=== PATIENT | male | born 1940 | race Caucasian/White ===

== ENCOUNTER 2021-02-03 09:26 | Emergency (ER) | payer MEDICARE, SELFPAY ==
[2021-02-03 09:27] VITALS: BP 130/71; PULSE 60; RESP 20; TEMP 36.7; O2SAT 95; BMI 24.8
--- NOTE | 2021-02-03 09:30 | HMH.EDGENADL ---
ED Disposition Clinical Impression: Back pain due to injury Disposition: Home, Self-Care Condition on Discharge: Good Additional Instructions: Use topical lidocaine patches daily. Use as prescribed. Take Flexeril at night prior to sleep to alleviate muscle spasms. Do not operate heavy machinery or drink alcohol taking muscle relaxer. Immediately report back to our emergency department if any change in quality/character pain, decreased ability to ambulate, decreased range of motion of back, fever/chills, urinary changes, bowel changes, perianal anesthesia, or other new concerning symptoms. Otherwise please follow-up with your primary care doctor within several days for a recheck. Prescriptions: Cyclobenzaprine HCl [Cyclobenzaprine 5mg Tab*] 5 mg PO BIDP PRN 5 Days #10 tab PRN Reason: Muscle Spasm Transmission Status: Pending to [id number] Lidocaine [Lidoderm 5% transdermal patch] 1 each TP Q24H 10 Days #10 adh..patch Transmission Status: Pending to [id number] Referrals: Pablo Sands MD [Primary Care Provider] - - Critical Care Critical Care Time: No Attestation: On , the high probability of a clinically significant, sudden or life threatening deterioration of the following system(s) required my full and direct attention, intervention and personal management. The time I documented below is in addition to time spent performing reported procedures but includes the following listed in this critical care notation. Medical Decision Making - Medical Records Medical records reviewed: Yes: I reviewed the patient's medical records. - Jerry Inquiry Pt receiving controlled substance: No Vital Signs: 02/03/21 09:27 Temperature 98.0 F Temperature Source Oral Pulse Rate [Left Radial] 60 Respiratory Rate 20 Blood Pressure [Right Arm] 130/71 Blood Pressure Mean [Right Arm] 90 Blood Pressure Source [Right Arm] Automatic Cuff Blood Pressure Position [Right Arm] Sitting 02 Sat by Pulse Oximetry 95 Oxygen Delivery Method Room Air Orders (Tests/Meds): ED MEDICATIONS Discontinued Medications Generic Name Dose Route Start Last Admin Trade Name Freq PRN Reason Stop Dose Admin Cyclobenzaprine HCl 5 mg 02/03/21 09:56 02/03/21 09:59 Cyclobenzaprine 10mg Tablet PO 02/03/21 09:57 5 mg ONCE ONE Administration Lidocaine 1 each 02/03/21 10:00 02/03/21 10:00 Lidocaine 5% Transdermal Patch TP 02/03/21 10:01 1 each ONCE ONE Administration Medical Decision Narrative: Patient is a 80-year-old presenting with right lower back pain. The pain is acute, sudden onset. No red flag symptoms of back pain including steroid use, recent weight loss, morning/night pain, neuro deficits, weakness. He does appear to be suffering from acute, nonradicular back pain after contorting his back in a funny way yesterday morning. No trauma to his back. Low suspicion for fracture, tumor, or infection. At this time, I do not believe there is indication for imaging. Patient agrees. Differential diagnosis does include herniated disc versus muscle strain versus muscle spasm. Patient given Flexeril and a lidocaine patch here in the emergency department due to suspected herniated disc with muscular spasm. Patient with improved pain after application of lidocaine patch and p.o. Flexeril. He now is ambulatory with only mild difficulty which is improved from his initial presentation. Again, on reexamination no midline back pain, neuro deficits, or other red flag symptoms. I do believe he is safe to discharge on short course of muscle relaxer to be taken at night prior to sleep as well as topical lidocaine patches. He would not operate heavy machinery or drink alcohol while taking Flexeril. He agrees. He will follow up with his primary care doctor for recheck within 1 to 2 days to ensure improved symptoms. He report back immediately to the emergency department if worsening pain, change in quality/character
[2021-02-03 10:00] VITALS: BP 129/73; PULSE 56; O2SAT 97
[2021-02-03 10:30] VITALS: BP 116/70; PULSE 52; O2SAT 95
[2021-02-03 10:49] VITALS: BP 116/70; PULSE 51; RESP 18; TEMP 36.7; O2SAT 96
== END 2021-02-03 10:50 | disposition home or self-care (01) ==
PROVIDERS: Emergency Provider Emergency Medicine; PCP Internal Medicine Adolescent Medicine
DX: M54.5 Low back pain (principal); I48.91 Unspecified atrial fibrillation; I10 Essential (primary) hypertension; Z79.899 Other long term (current) drug therapy
CPT/HCPCS: 99281

== ENCOUNTER → 2021-08-12 15:16 | Outpatient (CLI) | payer MEDICARE, SELFPAY ==
[2021-08-12 15:52] LABS: Basophils # 0.1 K/mm3 (0-0.2); Basophils % 1.1 % (0.1-2.0); Eosinophils # 0.2 K/mm3 (0.0-0.4); Eosinophils % 2.5 % (0.1-12.0); Hematocrit 47.5 % (42.0-52.0); Hemoglobin 15.2 g/dL (14.1-18.0); Lymphocytes # 1.3 K/mm3 (0.7-4.5); Lymphocytes % 18.5 % (10-50); Mean Corpuscular Hemoglobin 30.6 pg (27.0-31.2); Mean Corpuscular Volume 95.7 fl (80-94); Mean Platelet Volume 10.6 fl (7.4-10.4); Monocytes # 0.5 K/mm3 (0.1-1.0); Monocytes % 7.3 % (1.7-9.3); Neutrophils # 4.8 K/mm3 (1.8-7.8); Neutrophils % 70.7 % (37.0-80.0); Platelet Count 314 K/mm3 (142-424); Red Blood Count 4.96 M/mm3 (4.60-6.20); Red Cell Distribution Width 13.6 % (11.5-17.5); White Blood Count 6.8 K/mm3 (4.8-10.8)
[2021-08-12 16:41] LABS: Direct LDL Cholesterol 75.32 mg/dL (100-129)
[2021-08-12 21:52] LABS: Alanine Aminotransferase 21 U/L (12-78); Albumin/Globulin Ratio 1.5 (1.1-1.8); Alkaline Phosphatase 53 U/L (38-126); Anion Gap 11.5 mEq/L (5-15); Aspartate Amino Transferase 38 U/L (17-59); Bilirubin,Total 2.3 mg/dl (0.2-1.3); Blood Urea Nitrogen 15 mg/dl (9-20); Calcium 9.2 mg/dl (8.4-10.2); Carbon Dioxide 29 mmol/L (22.0-30.0); Chloride 104 mmol/L (98-107); Chol/HDL Ratio 2.9 (1-3.5); Cholesterol 149 mg/dl (140-200); Estimated Glomerular Filt Rate 93 ml/min (>60); GFR (African American) 113 ML/MIN (>60); Globulin 2.6 g/dL (1.3-3.2); Glucose 93 mg/dl (74-100); HDL Cholesterol 51 mg/dl (40-60); Potassium 5.5 mmoL/L (3.5-5.1); Sodium 139 mmol/L (136-145); Total Protein,Serum 6.6 g/dl (6.3-8.2); Triglycerides 84 mg/dl (30-150); VLDL Cholesterol 17 mg/dL (0-40)
== END ==
PROVIDERS: Visit Provider Internal Medicine Adolescent Medicine
DX: I10 Essential (primary) hypertension (principal); E80.6 Other disorders of bilirubin metabolism
CPT/HCPCS: 80053; 80061; 85025

== ENCOUNTER 2021-09-24 08:16 | Emergency (ER) | payer MEDICARE, SELFPAY ==
--- NOTE | 2021-09-24 08:09 | ECG_ITS ---
APPROVED REPORT Exam: Resting ECG HR:59 bpm ECG Measurements Heart Rate 59 AXES AL 194 P 61 QRSd 96 QRS 9 QT 424 T 63 QTc 419 Conclusion Sinus bradycardia Possible Anterior infarct, age undetermined Abnormal ECG Electronically signed by : Rodney Hodge MD 09/27/2021 08:49:37
[2021-09-24 08:18] VITALS: BP 159/90; PULSE 58; RESP 18; TEMP 36.5; O2SAT 99; BMI 23.6
--- NOTE | 2021-09-24 08:20 | XR_ITS ---
PROCEDURE: XR CHEST PORTABLE CLINICAL HISTORY: Chest Pain COMPARISON: CR CXR1 CHEST-PORTABLE from 10/22/2012 CR CXR1 CHEST-PORTABLE from 03/08/2013 CR CXR CHEST(2 VIEWS-NOT PORTABLE) from 01/01/2017 FINDINGS: The cardiomediastinal silhouette and pulmonary vascularity are within normal limits. Mild tortuosity/ectasia of the thoracic aorta. Lungs are clear. No acute bony abnormalities. IMPRESSION: No change with no acute finding Dictated by: Jameson Young MD 09/24/2021 09:02 Jameson Young MD in [facility] 09/24/2021 09:02
--- NOTE | 2021-09-24 08:26 | PC.NURSE ---
Called marilyn in RAD for chest xray
[2021-09-24 08:30] VITALS: BP 146/80; PULSE 58; RESP 16; O2SAT 98
[2021-09-24 08:32] LABS: Basophils % 0.6 % (0.1-2.0); Eosinophils # 0.2 K/mm3 (0.0-0.4); Eosinophils % 3.5 % (0.1-12.0); Hematocrit 41.6 % (42.0-52.0); Lymphocytes % 18.7 % (10-50); Mean Corpuscular HGB Conc 33.8 g/dL (31.8-35.4); Mean Corpuscular Hemoglobin 30.5 pg (27.0-31.2); Mean Corpuscular Volume 90.3 fl (80-94); Mean Platelet Volume 8.8 fl (7.4-10.4); Monocytes # 0.3 K/mm3 (0.1-1.0); Monocytes % 5.2 % (1.7-9.3); Neutrophils % 71.9 % (37.0-80.0); Platelet Count 254 K/mm3 (142-424); Red Cell Distribution Width 13.7 % (11.5-17.5); White Blood Count 5.6 K/mm3 (4.8-10.8)
--- NOTE | 2021-09-24 08:36 | HMH.EDCP ---
ED Disposition Clinical Impression: Chest pain Disposition: Home, Self-Care Condition on Discharge: Fair Referrals: Pablo Sands MD [Primary Care Provider] - - Critical Care Critical Care Time: No Attestation: On 09/24/21, the high probability of a clinically significant, sudden or life threatening deterioration of the following system(s) required my full and direct attention, intervention and personal management. The time I documented below is in addition to time spent performing reported procedures but includes the following listed in this critical care notation. Medical Decision Making - Medical Records Medical records reviewed: Yes: I reviewed the patient's medical records. - Jerry Inquiry Pt receiving controlled substance: No Jerry was queried for this patient: No Vital Signs: 09/24/21 08:18 09/24/21 08:30 Temperature 97.7 F Temperature Source Oral Pulse Rate 58 L Pulse Rate [Right] 58 L Respiratory Rate 18 16 Blood Pressure 146/80 H Blood Pressure [Right Arm] 159/90 H Blood Pressure Mean 102 Blood Pressure Mean [Right Arm] 113 Blood Pressure Source [Right Arm] Manual Cuff/ Doppler Blood Pressure Position [Right Arm] Supine 02 Sat by Pulse Oximetry 99 98 Oxygen Delivery Method Room Air - Lab Data Lab Results 09/24/21 08:00: WBC 5.6, RBC 4.60, Hgb 14.0 L, Hct 41.6 L, MCV 90.3, MCH 30.5, MCHC 33.8, RDW 13.7, Plt Count 254, MPV 8.8, Neut % (Auto) 71.9, Lymph % (Auto) 18.7, [place] % (Auto) 5.2, Eos % (Auto) 3.5, Baso % (Auto) 0.6, Neut # (Auto) 4.0, Lymph # (Auto) 1.0, [place] # (Auto) 0.3, Eos # (Auto) 0.2, Baso # (Auto) 0.0 09/24/21 08:00: PT 12.0, INR 1.07, APTT 26.2 09/24/21 08:00: D-Dimer 0.51 H 09/24/21 08:00: Sodium 137, Potassium 3.9, Chloride 103, Carbon Dioxide 34 H, Anion Gap 3.9 L, BUN 14, Creatinine 0.80, Estimated Creat Clear 63, Estimated GFR 93, Est GFR ( Amer) 113, Glucose 106 H, Calcium 9.0, Total Bilirubin 1.6 H, AST 38, ALT 24, Alkaline Phosphatase 60, Troponin I < 0.01, Total Protein 6.5, Albumin 4.0, Globulin 2.5, Albumin/Globulin Ratio 1.6 Result diagrams: 09/24/21 08:00 09/24/21 08:00 Orders (Tests/Meds): ED MEDICATIONS Generic Name Dose Route Start Last Admin Trade Name Freq PRN Reason Stop Dose Admin Ibuprofen 400 mg 09/24/21 10:39 Ibuprofen 400 Mg Tablet PO 09/24/21 10:40 ONCE ONE Discontinued Medications Generic Name Dose Route Start Last Admin Trade Name Freq PRN Reason Stop Dose Admin Iopamidol 100 ml 09/24/21 09:41 09/24/21 09:42 Iopamidol-370 (76%);100ml Bottle IV 09/24/21 09:42 100 ml ONCE ONE Administration Sodium Chloride 10 ml 09/24/21 09:41 09/24/21 09:42 Sodium Chloride 0.9% 10ml Vial IV 09/24/21 09:42 10 ml ONCE ONE Administration ORDERS Category Date Time Status Troponin I Q3H Lab 09/24/21 11:30 Ordered Troponin I Q3H Lab 09/24/21 14:30 Ordered Medical Decision Narrative: Patient is a 81-year-old male with past medical history of A. fib on Eliquis, hypertension presenting to the ED with chest tightness. Patient is awake, alert, not in acute distress. Patient states that his chest pain has resolved with nitro patient states that now he is only having a mild headache. Differential includes but is not limited to unstable angina well, low concern for ACS, PE, pneumonia, pneumothorax. Given this a CBC, CMP, troponin, EKG, D-dimer is performed. Patient's lab work is unremarkable, initial troponin is less than 0.01. D-dimer is elevated, CT PE is performed which is negative for any embolism or concerns for dissection. Patient is given ibuprofen and coffee for his headache. At this point patient is stable for discharge to follow-up with his primary care physician and merchandising stock associate. Patient is given strict return precautions and follow-up instructions. Chest Pain HPI - General Chief Complaint: Chest Pain Stated Complaint: Chest Pain Time Seen by Provider: 09/24/21 08:37 Mode of A
[2021-09-24 08:40] LABS: Activated Partial Thrombo Time 26.2 seconds (22.8-30.6); INR 1.07 (0.9-1.1)
[2021-09-24 08:45] LABS: Alanine Aminotransferase 24 U/L (12-78); Albumin/Globulin Ratio 1.6 (1.1-1.8); Alkaline Phosphatase 60 U/L (38-126); Anion Gap 3.9 mEq/L (5-15); Aspartate Amino Transferase 38 U/L (17-59); Bilirubin,Total 1.6 mg/dl (0.2-1.3); Blood Urea Nitrogen 14 mg/dl (9-20); Carbon Dioxide 34 mmol/L (22.0-30.0); Chloride 103 mmol/L (98-107); Creatinine Clearance Estimated 63 mL/min (50-200); Estimated Glomerular Filt Rate 93 ml/min (>60); GFR (African American) 113 ML/MIN (>60); Globulin 2.5 g/dL (1.3-3.2); Glucose 106 mg/dl (74-100); Potassium 3.9 mmoL/L (3.5-5.1); Sodium 137 mmol/L (136-145); Total Protein,Serum 6.5 g/dl (6.3-8.2)
--- NOTE | 2021-09-24 08:54 | PC.NURSE ---
Pt is on blood thinner eliquis
[2021-09-24 08:56] LABS: Troponin I < 0.01 ng/ml (0.00-0.034)
[2021-09-24 09:00] VITALS: BP 149/87; PULSE 47; RESP 18; O2SAT 97
[2021-09-24 09:04] LABS: D-Dimer 0.51 ug/mL (0.0-0.5)
--- NOTE | 2021-09-24 09:05 | PC.NURSE ---
Checked on Pt he is resting confortably in bed
--- NOTE | 2021-09-24 09:14 | CT_ITS ---
PROCEDURE: CT ANGIO CHEST CLINCIAL INDICATION: Chest pain, confusion, elevated D dimer COMPARISON: No exams were available for comparison TECHNIQUE: IV Contrast: 70ML Isovue 370 Axial images obtained with sagittal and coronal reformats. All CT scans at the facility use one or more dose reduction, viz: automated exposure control, ma/kV adjustment per patient size (including targeted exams where dose is matched to indication, i.e. head), or iterative reconstruction technique. FINDINGS: HEART AND MEDIASTINAL STRUCTURES: No evidence of aortic aneurysm or dissection. There is mild ectasia and moderate tortuosity of the descending thoracic aorta. No evidence of central pulmonary embolus. No mediastinal or hilar mass or adenopathy. Coronary artery calcifications are present. LUNGS AND PLEURAL SPACES: There are some scattered areas of scarring. Mild atelectatic change in the left lower lobe medially adjacent to the tortuous aorta. BONY STRUCTURES: No acute bony abnormalities apparent. UPPER ABDOMEN: No evidence abdominal aortic aneurysm or dissection to the level of the iliac crest. There is colonic diverticulosis with a mild amount of retained colonic feces. 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 This aneurysm measures approximately 4 mm. Mild nonspecific thickening of the GE junction and stomach possibly due to nondistention and could be confirmed with upper endoscopy or upper GI. Left adrenal gland is slightly prominent and may represent adenomatous involvement. ADDITIONAL FINDINGS: No other significant abnormalities. IMPRESSION: No acute finding. No evidence of aortic aneurysm or dissection. There is moderate tortuosity of the descending thoracic aorta. 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 Other nonacute findings as described above. Dictated by: Jameson Young MD 09/24/2021 10:23 Jameson Young MD in [place] 09/24/2021 10:23
--- NOTE | 2021-09-24 09:27 | PC.NURSE ---
Pt to rad
--- NOTE | 2021-09-24 09:39 | PC.NURSE ---
PT is back from [place], and is currently in the bathroom
[2021-09-24 09:48] VITALS: BP 152/92; PULSE 50; O2SAT 98
--- NOTE | 2021-09-24 10:16 | PC.NURSE ---
Took Pt to bathroom
[2021-09-24 11:00] VITALS: BP 153/97; PULSE 59; RESP 18; TEMP 36.8; O2SAT 99
== END 2021-09-24 11:00 | disposition home or self-care (01) ==
PROVIDERS: Emergency Provider Emergency Medicine; PCP Internal Medicine Adolescent Medicine
DX: R07.9 Chest pain, unspecified (principal); R42 Dizziness and giddiness; I48.0 Paroxysmal atrial fibrillation; I10 Essential (primary) hypertension; E78.5 Hyperlipidemia, unspecified; Z79.899 Other long term (current) drug therapy
CPT/HCPCS: 71045; 71275; 80053; 84484; 85025; 85378; 85610; 85730; 93005; 99283; Q9967

== ENCOUNTER → 2022-10-29 09:12 | Outpatient (CLI) | payer MEDICARE, SELFPAY ==
[2022-10-29 10:23] LABS: Hematocrit 45.4 % (42.0-52.0); Hemoglobin 14.6 g/dL (14.1-18.0); Mean Corpuscular Hemoglobin 30.2 pg (27.0-31.2); Mean Corpuscular Volume 94.4 fl (80-94); Platelet Count 339 K/mm3 (142-424); Red Blood Count 4.81 M/mm3 (4.60-6.20); Red Cell Distribution Width 13.9 % (11.5-17.5); White Blood Count 5.3 K/mm3 (4.8-10.8)
[2022-10-29 12:17] LABS: Chloride 103 mmol/L (98-107); Potassium 4.3 mmoL/L (3.5-5.1); Sodium 139 mmol/L (136-145)
[2022-10-29 12:20] LABS: Alanine Aminotransferase 27 U/L (12-78); Albumin/Globulin Ratio 1.7 (1.1-1.8); Alkaline Phosphatase 67 U/L (38-126); Anion Gap 10.3 mEq/L (5-15); Aspartate Amino Transferase 40 U/L (17-59); Bilirubin,Total 1.9 mg/dl (0.2-1.3); Blood Urea Nitrogen 14 mg/dl (9-20); Carbon Dioxide 30 mmol/L (22.0-30.0); Chol/HDL Ratio 2.7 (1-3.5); Cholesterol 164 mg/dl (140-200); Estimated Glomerular Filt Rate 93 ml/min (>60); GFR (African American) 113 ML/MIN (>60); Globulin 2.4 g/dL (1.3-3.2); Glucose 91 mg/dl (74-100); HDL Cholesterol 60 mg/dl (40-60); Total Protein,Serum 6.4 g/dl (6.3-8.2); Triglycerides 61 mg/dl (30-150); VLDL Cholesterol 12 mg/dL (0-40)
[2022-10-29 12:31] LABS: Direct LDL Cholesterol 70.99 mg/dL (100-129)
== END ==
PROVIDERS: PCP Internal Medicine Adolescent Medicine; Visit Provider Nurse Practitioner Family
DX: Z00.00 Encounter for general adult medical examination without abnormal findings (principal); I48.0 Paroxysmal atrial fibrillation; Z79.899 Other long term (current) drug therapy
CPT/HCPCS: 36415; 80053; 80061; 85014; 85018; 85048; 85049

== ENCOUNTER 2024-05-05 08:52 | Outpatient (CLI) | payer MEDICARE, SELFPAY ==
[2024-05-05 09:28] LABS: Basophils # 0.1 K/mm3 (0-0.2); Basophils % 1.4 % (0.1-2.0); Eosinophils # 0.3 K/mm3 (0.0-0.4); Eosinophils % 4.6 % (0.1-12.0); Hematocrit 39.3 % (42.0-52.0); Hemoglobin 15.1 g/dL (14.1-18.0); Lymphocytes # 1.2 K/mm3 (0.7-4.5); Lymphocytes % 19.6 % (10-50); Mean Corpuscular HGB Conc 38.3 g/dL (31.8-35.4); Mean Corpuscular Hemoglobin 35.1 pg (27.0-31.2); Mean Corpuscular Volume 91.8 fl (80-94); Monocytes # 0.5 K/mm3 (0.1-1.0); Monocytes % 7.9 % (1.7-9.3); Neutrophils # 4.2 K/mm3 (1.8-7.8); Neutrophils % 66.6 % (37.0-80.0); Platelet Count 220 K/mm3 (142-424); Red Blood Count 4.29 M/mm3 (4.60-6.20); Red Cell Distribution Width 13.7 % (11.5-17.5); White Blood Count 6.3 K/mm3 (4.8-10.8)
[2024-05-05 10:57] LABS: Chloride 106 mmol/L (98-107)
[2024-05-05 10:58] LABS: Potassium 4.2 mmoL/L (3.5-5.1); Sodium 140 mmol/L (136-145)
[2024-05-05 11:00] LABS: Alanine Aminotransferase 20 U/L (12-78); Anion Gap 12.2 mEq/L (5-15); Aspartate Amino Transferase 30 U/L (17-59); Blood Urea Nitrogen 17 mg/dl (9-20); Carbon Dioxide 26 mmol/L (22.0-30.0); Estimated Glomerular Filt Rate 81 ml/min (>60); GFR (African American) 98 ML/MIN (>60)
[2024-05-05 11:01] LABS: Albumin Level 3.9 g/dl (3.5-5.0); Albumin/Globulin Ratio 1.9 (1.1-1.8); Alkaline Phosphatase 61 U/L (38-126); Bilirubin,Total 1.9 mg/dl (0.2-1.3); Calcium 9.3 mg/dl (8.4-10.2); Cholesterol 158 mg/dl (140-200); Globulin 2.1 g/dL (1.3-3.2); Glucose 92 mg/dl (74-100); HDL Cholesterol 53 mg/dl (40-60); Triglycerides 74 mg/dl (30-150); VLDL Cholesterol 15 mg/dL (0-40)
== END 2024-05-05 23:59 | disposition home or self-care (01) ==
LOC: LAB 08:54
PROVIDERS: PCP Nurse Practitioner Family; Visit Provider Nurse Practitioner Family
DX: P59.29 Neonatal jaundice from other hepatocellular damage (principal); I10 Essential (primary) hypertension; I48.0 Paroxysmal atrial fibrillation
CPT/HCPCS: 36415; 80053; 80061; 85025

== ENCOUNTER 2024-12-22 18:37 | Emergency (ER) | payer MEDICARE, SELFPAY ==
[2024-12-22] VITALS (10 sets, daily range): BP systolic 122–143; BP diastolic 72–87; PULSE 62–86; RESP 11–22; TEMP 36.6–37.1; O2SAT 96–99; BMI 20.6
--- NOTE | 2024-12-22 18:35 | [facility].EDCP ---
Discharge Plan Disposition Patient Disposition: Home, Self-Care Condition: Good Prescriptions Prescriptions: No Action doxycycline hyclate 100 MG capsule 100 mg PO BID atorvastatin 20 MG tablet 20 mg PO HS flecainide 50 MG tablet 50 mg PO DAILY mupirocin 2 % ointment 1 applicatio topical BID metoprolol succinate 25 MG tablet extended release 24 hr 25 mg PO DAILY ibuprofen 600 MG tablet 600 mg PO TID Patient Comments: TAKE 1 TABLET BY MOUTH EVERY 12 HOURS NEEDED cephalexin 500 MG capsule 500 mg PO TID Qty: 30 0RF lidocaine 1 EACH adhesive patch,medicated 1 each TP Q24H 10 Days Qty: 10 0RF cyclobenzaprine 5 MG tablet 5 mg PO BIDP PRN (Reason: Muscle Spasm) 5 Days Qty: 10 0RF Rx Instructions: Do not operate heavy machinery or drink alcohol while taking this medicine Referrals Follow up/Referrals: Soha Garcia APRN [Primary Care Provider] - See instructions Activity Restrictions/Add. Instructions Additional Instructions/Restrictions: Recommend that you follow-up with your PCP next week however sooner if you have continuing new or worsening signs or symptoms return to ER. Also recommend that you follow-up with cardiology as you have nitroglycerin but I do not know if you have actual cardiovascular disease and it actually may be harmful to continue taking it. Clinical Impressions Clinical Impression: Chest pain Qualifiers: Chest pain type: unspecified Qualified Code(s): R07.9 - Chest pain, unspecified Anxiety disorder Qualifiers: Anxiety disorder type: unspecified anxiety disorder Qualified Code(s): F41.9 - Anxiety disorder, unspecified Print Language Print Language: Faroese Discharge ED Provider: Joe Álvarez HPI <JIMMIE Christensen - Last Filed: 12/22/24 21:19> General Chief Complaint: Chest Pain Stated Complaint: Chest Pain, Anxiety Time Seen by Provider: 12/22/24 18:44 History of Present Illness HPI narrative: Patient presents for evaluation of chest pain . Patient reports that he began having chest pain around 10 AM this morning. He states that he is taking 3 sublingual nitro that have not made it better. Interestingly the patient denies any cardiac history or any known cardiac disease any history of cardiac cath coronary artery bypass graft AR but cannot explain how he has a prescription for nitroglycerin. He currently denies chest pain fever chills mops his hematochezia melena nausea vomiting diarrhea but does report feeling anxious. But has no home medications for anxiety. Related Data Home Medications ?Medication ?Instructions ?Recorded ?Confirmed atorvastatin 20 mg tablet 20 mg PO HS lipids 08/27/19 12/22/24 doxycycline hyclate 100 mg capsule 100 mg PO BID Infection 08/27/19 12/22/24 flecainide 50 mg tablet 50 mg PO DAILY afib 08/27/19 12/22/24 ibuprofen 600 mg tablet 600 mg PO TID Infection 08/27/19 12/22/24 metoprolol succinate 25 mg 25 mg PO DAILY aortic valve 08/27/19 12/22/24 tablet,extended release 24 hr disorder/htn mupirocin 2 % topical ointment 1 applicatio topical BID cellulitis 08/27/19 12/22/24 Previous Rx's ?Medication ?Instructions ?Recorded cephalexin 500 mg capsule 500 mg PO TID #30 caps 08/27/19 cyclobenzaprine 5 mg tablet 5 mg PO BIDP PRN Muscle Spasm 5 02/03/21 days #10 tabs lidocaine 5 % topical patch 1 each TP Q24H Back ache/back pain 02/03/21 10 days ##10 Allergies Allergy/AdvReac Type Severity Reaction Status Date / Time No Known Allergies Allergy Verified 08/27/19 19:42 [facility] <JIMMIE Christensen - Last Filed: 12/22/24 21:19> [facility] Disclaimer: The information contained in this section may have been updated after the patient was seen, as this information can be updated by other users. Social History Smoking Status: Never smoker alcohol intake: never current occupational status: retired Travel in the last 8 weeks: None housing: house Have you lived/traveled outside [place] in past 30 days?: No Contact w/someone who lives/traveled outside US past 30 days?: No Exposure to someone with infectious disease in past 14 days?: No Do you have a fever (greater than 100.4 F or 38 C)?: No Have you tested positive for COVID-19: No Exposed to someone with COVID-19 in past 14 days?: No Do you have a sore throat?: No Do you have a cough?: No Do you have any weakness?: No Do you have any diarrhea?: No Are you experiencing any unusual bleeding?: No Do you have any muscle aches/pain?: No Do you have any abdominal pain?: No Are you experiencing loss of taste or smell?: No Other Medical History Have you received the Flu Vaccine for this season: Yes Have you received the Pneumonia Vaccine: No <JIMMIE Christensen - Last Filed: 12/22/24 21:19> ROS Obtained: Yes Systems reviewed as appropriate & no additional complaints except as documented Physical Exam <JIMMIE Christensen - Last Filed: 12/22/24 21:19> General General appearance: alert and in no apparent distress Respiratory Respiratory exam: Present normal lung sounds bilaterally Cardiovascular Cardiovascular exam: Present regular rate Neurological Exam Neurological exam: Present alert, oriented X3 and CN II-XII intact HEART Score <JIMMIE Christensen - Last Filed: 12/22/24 21:19> HEART Score HEART Score assessment performed?: Yes History (anamnesis): Slightly suspicious ECG: Non-specific disturbance Age: >65 years Risk factors: 1-2 risk factors Troponin: </= normal limit HEART Score: 4 <Joe Álvarez MD - Last Filed: 12/22/24 23:44> HEART Score HEART Score: 4 Critical Care <JIMMIE Christensen - Last Filed: 12/22/24 21:19> Critical Care Time Critical Care Time: No Medical Decision Making <JIMMIE Christensen - Last Filed: 12/22/24 21:19> Medical Records Medical records reviewed: Yes I reviewed the patient's medical records. Jerry Inquiry Pt receiving controlled substance: No Vital Signs Vital Signs: 12/22/24 18:55 12/22/24 19:00 12/22/24 19:15 Temperature 97.8 F Temperature Source Oral Pulse Rate 67 69 Pulse Rate [Left Radial] 69 Respiratory Rate 18 11 L Blood Pressure 139/85 Blood Pressure [Right Arm] 131/74 Blood Pressure Mean [Right Arm] 93 Blood Pressure Source [Right Arm] Automatic Cuff Blood Pressure Position Blood Pressure Position [Right Arm] Sitting 02 Sat by Pulse Oximetry 98 97 Oxygen Delivery Method Room Air Room Air 12/22/24 19:15 12/22/24 19:30 12/22/24 20:00 Temperature Temperature Source Pulse Rate 63 65 62 Pulse Rate [Left Radial] Respiratory Rate 15 22 19 Blood Pressure 131/76 122/72 Blood Pressure [Right Arm] Blood Pressure Mean [Right Arm] Blood Pressure Source [Right Arm] Blood Pressure Position Blood Pressure Position [Right Arm] 02 Sat by Pulse Oximetry 97 96 99 Oxygen Delivery Method Room Air 12/22/24 20:30 12/22/24 21:00 12/22/24 21:30 Temperature Temperature Source Pulse Rate 62 67 Pulse Rate [Left Radial] Respiratory Rate 22 16 16 Blood Pressure 128/74 143/83 H 138/84 Blood Pressure [Right Arm] Blood Pressure Mean [Right Arm] Blood Pressure Source [Right Arm] Blood Pressure Position Blood Pressure Position [Right Arm] 02 Sat by Pulse Oximetry 99 99 Oxygen Delivery Method Room Air 12/22/24 21:51 12/22/24 22:00 Temperature 98.7 F Temperature Source Oral Pulse Rate 86 Pulse Rate [Left Radial] Respiratory Rate 14 17 Blood Pressure 128/87 128/87 Blood Pressure [Right Arm] Blood Pressure Mean [Right Arm] Blood Pressure Source [Right Arm] Blood Pressure Position Sitting Blood Pressure Position [Right Arm] 02 Sat by Pulse Oximetry Oxygen Delivery Method Room Air Lab Data Lab results reviewed: Yes I reviewed the patient's lab results. Labs: Lab Results 12/22/24 18:48: SARS-CoV-2 (PCR) Not detected, Influenza A Untype (PCR) Not detected, Influenza Type B (PCR) Not detected 12/22/24 19:20: WBC 6.1, RBC 4.34 L, Hgb 13.0 L, Hct 39.1 L, MCV 90.1, MCH 30.0, MCHC 33.2, RDW 13.0, Plt Count 312, MPV 9.7, Neut % (Auto) 66.7, Lymph % (Auto) 19.5, [place] % (Auto) 9.9 H, Eos % (Auto) 2.3, Baso % (Auto) 1.3, Neut # (Auto) 4.0, Lymph # (Auto) 1.2, [place] # (Auto) 0.6, Eos # (Auto) 0.1, Baso # (Auto) 0.1, PT 11.8, INR 1.06, D-Dimer 0.41, Sodium 137, Potassium 4.1, Chloride 104, Carbon Dioxide 29, Anion Gap 8.1, BUN 19, Creatinine 0.80, Estimated Creat Clear 54, Estimated GFR 93, Est GFR ( Amer) 112, Glucose 91, Calcium 8.6, Magnesium 1.7, Total Bilirubin 1.4 H, AST 34, ALT 25, Alkaline Phosphatase 71, Troponin I < 0.01, NT-Pro-B Natriuret Pep 109, Total Protein 5.7 L, Albumin 3.9, Globulin 1.8, Albumin/Globulin Ratio 2.2 H, Procalcitonin 0.048, TSH 3.15, Free T4 Index 2.4 L, Thyroxine (T4) 7.3, T3 Uptake 33, HCV Ab NASRIN w/Rflx PCR Qn Negative, HIV Ag/Ab Combo Qual Negative 12/22/24 20:59: Urine Color Yellow, Urine Appearance Clear, Urine pH 7.0, Ur Specific [place] 1.020, Urine Protein Negative, Urine Glucose (UA) Negative, Urine Ketones Trace, Urine Blood Negative, Urine Nitrate Negative, Urine Bilirubin Negative, Urine Urobilinogen 1.0, Ur Leukocyte Esterase Negative, Urine RBC Occasional, Urine WBC Occasional, Ur Squamous Epith Cells Occasional, Urine Mucus 2+ 12/22/24 19:20 12/22/24 19:20 Response Orders (Tests/Meds): ED MEDICATIONS Discontinued Medications Generic Name Dose Route Start Last Admin Trade Name Freq PRN Reason Stop Dose Admin Acetaminophen 1,000 mg 12/22/24 18:39 12/22/24 18:53 Acetaminophen 500mg Tab PO 12/22/24 18:40 1,000 mg ONCE ONE Administration Ketorolac Tromethamine 15 mg 12/22/24 18:39 12/22/24 18:53 Ketorolac 30mg/Ml Vial IV 12/22/24 18:40 15 mg ONCE ONE Administration Lorazepam 0.5 mg 12/22/24 20:50 12/22/24 21:02 Lorazepam 2mg/Ml Vial IV 12/22/24 20:51 0.5 mg ONCE ONE Administration Ondansetron HCl 4 mg 12/22/24 18:39 12/22/24 18:53 Ondansetron 4mg/2ml Vial IV 12/22/24 18:40 4 mg ONCE ONE Administration Sodium Chloride 10 ml 12/22/24 20:50 Sodium Chloride 0.9% 10ml Vial IV 01/21/25 20:49 NEEDED PRN to Dilute Lorazepam inj ORDERS Category Date Time Status XR chest portable Stat Exams 12/22/24 19:08 Completed BNP [NT Pro Brain Natriuretic Pep.] Stat Lab 12/22/24 19:20 Completed CBC w/Auto Diff [Complete Blood Count Auto Diff] Stat Lab 12/22/24 19:20 Completed CMP [Comprehensive Metabolic Panel] Stat Lab 12/22/24 19:20 Completed D-Dimer Stat Lab 12/22/24 19:20 Completed HIV Combo Stat Lab 12/22/24 19:20 Completed Hepatitis C Ab Qual. W/ RFX Stat Lab 12/22/24 19:20 Completed INR [Prothrombin Time INR] Stat Lab 12/22/24 19:20 Completed Magnesium Stat Lab 12/22/24 19:20 Completed Procalcitonin Stat Lab 12/22/24 19:20 Completed Rapid PCR Covid and Flu A/B Stat Lab 12/22/24 18:48 Completed Thyroid Panel Stat Lab 12/22/24 19:20 Completed Trop I [Troponin I] Stat Lab 12/22/24 19:20 Completed UA [Urinalysis and Microscopic] Stat Lab 12/22/24 20:59 Completed MDM Narrative Medical Decision Narrative: In summary patient is a 84-year-old male who presents to the emergency department for evaluation of chest pain. Patient is hemodynamically stable upon arrival, afebrile. Physical exam is remarkable for normal breath sounds normal heart sounds no increased work of breathing no adventitious sounds abdomen soft nontender no rebound or guarding or rigidity. Bowel sounds normal active. Hart Coma Score 15. Patient awake alert and oriented person place circumstance.. Differential diagnosis includes ACS versus pneumonia versus upper or lower respiratory tract infection versus anxiety etc. Initial workup will be conducted with hematologic labs twelve-lead EKG plain from chest x-ray. Initial interventions include Toradol Tylenol Zofran for now. Initial workup reviewed by me shows that his hematologic labs are nonactionable his troponin is undetectable my informal interpretation of his plain film chest x-ray shows no acute processes his twelve-lead EKG shows no evidence of ACS COVID and flu are negative urinalysis is bland. Upon repeat evaluation patient has had no recurrent of his chest pain. Given this is more than 8 hours have passed since patient began having chest pain a single troponin is adequate to rule out ACS given the other negatives. On repeat evaluation patient reports feeling completely better after Ativan. 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 <Joe Álvarez MD - Last Filed: 12/22/24 23:44> Vital Signs Vital Signs: 12/22/24 18:55 12/22/24 19:00 12/22/24 19:15 Temperature 97.8 F Temperature Source Oral Pulse Rate 67 69 Pulse Rate [Left Radial] 69 Respiratory Rate 18 11 L Blood Pressure 139/85 Blood Pressure [Right Arm] 131/74 Blood Pressure Mean [Right Arm] 93 Blood Pressure Source [Right Arm] Automatic Cuff Blood Pressure Position Blood Pressure Position [Right Arm] Sitting 02 Sat by Pulse Oximetry 98 97 Oxygen Delivery Method Room Air Room Air 12/22/24 19:15 12/22/24 19:30 12/22/24 20:00 Temperature Temperature Source Pulse Rate 63 65 62 Pulse Rate [Left Radial] Respiratory Rate 15 22 19 Blood Pressure 131/76 122/72 Blood Pressure [Right Arm] Blood Pressure Mean [Right Arm] Blood Pressure Source [Right Arm] Blood Pressure Position Blood Pressure Position [Right Arm] 02 Sat by Pulse Oximetry 97 96 99 Oxygen Delivery Method Room Air 12/22/24 20:30 12/22/24 21:00 12/22/24 21:30 Temperature Temperature Source Pulse Rate 62 67 Pulse Rate [Left Radial] Respiratory Rate 22 16 16 Blood Pressure 128/74 143/83 H 138/84 Blood Pressure [Right Arm] Blood Pressure Mean [Right Arm] Blood Pressure Source [Right Arm] Blood Pressure Position Blood Pressure Position [Right Arm] 02 Sat by Pulse Oximetry 99 99 Oxygen Delivery Method Room Air 12/22/24 21:51 12/22/24 22:00 Temperature 98.7 F Temperature Source Oral Pulse Rate 86 Pulse Rate [Left Radial] Respiratory Rate 14 17 Blood Pressure 128/87 128/87 Blood Pressure [Right Arm] Blood Pressure Mean [Right Arm] Blood Pressure Source [Right Arm] Blood Pressure Position Sitting Blood Pressure Position [Right Arm] 02 Sat by Pulse Oximetry Oxygen Delivery Method Room Air Lab Data Labs: Lab Results 12/22/24 18:48: SARS-CoV-2 (PCR) Not detected, Influenza A Untype (PCR) Not detected, Influenza Type B (PCR) Not detected 12/22/24 19:20: WBC 6.1, RBC 4.34 L, Hgb 13.0 L, Hct 39.1 L, MCV 90.1, MCH 30.0, MCHC 33.2, RDW 13.0, Plt Count 312, MPV 9.7, Neut % (Auto) 66.7, Lymph % (Auto) 19.5, [place] % (Auto) 9.9 H, Eos % (Auto) 2.3, Baso % (Auto) 1.3, Neut # (Auto) 4.0, Lymph # (Auto) 1.2, [place] # (Auto) 0.6, Eos # (Auto) 0.1, Baso # (Auto) 0.1, PT 11.8, INR 1.06, D-Dimer 0.41, Sodium 137, Potassium 4.1, Chloride 104, Carbon Dioxide 29, Anion Gap 8.1, BUN 19, Creatinine 0.80, Estimated Creat Clear 54, Estimated GFR 93, Est GFR ( Amer) 112, Glucose 91, Calcium 8.6, Magnesium 1.7, Total Bilirubin 1.4 H, AST 34, ALT 25, Alkaline Phosphatase 71, Troponin I < 0.01, NT-Pro-B Natriuret Pep 109, Total Protein 5.7 L, Albumin 3.9, Globulin 1.8, Albumin/Globulin Ratio 2.2 H, Procalcitonin 0.048, TSH 3.15, Free T4 Index 2.4 L, Thyroxine (T4) 7.3, T3 Uptake 33, HCV Ab NASRIN w/Rflx PCR Qn Negative, HIV Ag/Ab Combo Qual Negative 12/22/24 20:59: Urine Color Yellow, Urine Appearance Clear, Urine pH 7.0, Ur Specific [place] 1.020, Urine Protein Negative, Urine Glucose (UA) Negative, Urine Ketones Trace, Urine Blood Negative, Urine Nitrate Negative, Urine Bilirubin Negative, Urine Urobilinogen 1.0, Ur Leukocyte Esterase Negative, Urine RBC Occasional, Urine WBC Occasional, Ur Squamous Epith Cells Occasional, Urine Mucus 2+ Response Orders (Tests/Meds): ED MEDICATIONS Discontinued Medications Generic Name Dose Route Start Last Admin Trade Name Freq PRN Reason Stop Dose Admin Acetaminophen 1,000 mg 12/22/24 18:39 12/22/24 18:53 Acetaminophen 500mg Tab PO 12/22/24 18:40 1,000 mg ONCE ONE Administration Ketorolac Tromethamine 15 mg 12/22/24 18:39 12/22/24 18:53 Ketorolac 30mg/Ml Vial IV 12/22/24 18:40 15 mg ONCE ONE Administration Lorazepam 0.5 mg 12/22/24 20:50 12/22/24 21:02 Lorazepam 2mg/Ml Vial IV 12/22/24 20:51 0.5 mg ONCE ONE Administration Ondansetron HCl 4 mg 12/22/24 18:39 12/22/24 18:53 Ondansetron 4mg/2ml Vial IV 12/22/24 18:40 4 mg ONCE ONE Administration Sodium Chloride 10 ml 12/22/24 20:50 Sodium Chloride 0.9% 10ml Vial IV 01/21/25 20:49 NEEDED PRN to Dilute Lorazepam inj ORDERS Category Date Time Status XR chest portable Stat Exams 12/22/24 19:08 Completed BNP [NT Pro Brain Natriuretic Pep.] Stat Lab 12/22/24 19:20 Completed CBC w/Auto Diff [Complete Blood Count Auto Diff] Stat Lab 12/22/24 19:20 Completed CMP [Comprehensive Metabolic Panel] Stat Lab 12/22/24 19:20 Completed D-Dimer Stat Lab 12/22/24 19:20 Completed HIV Combo Stat Lab 12/22/24 19:20 Completed Hepatitis C Ab Qual. W/ RFX Stat Lab 12/22/24 19:20 Completed INR [Prothrombin Time INR] Stat Lab 12/22/24 19:20 Completed Magnesium Stat Lab 12/22/24 19:20 Completed Procalcitonin Stat Lab 12/22/24 19:20 Completed Rapid PCR Covid and Flu A/B Stat Lab 12/22/24 18:48 Completed Thyroid Panel Stat Lab 12/22/24 19:20 Completed Trop I [Troponin I] Stat Lab 12/22/24 19:20 Completed UA [Urinalysis and Microscopic] Stat Lab 12/22/24 20:59 Completed ECG Data Tracing #1: Attestation: I reviewed this ECG and interpreted as documented below: (1842: Independently interpreted sinus rhythm 63 bpm with UT 192, QRS 105, QTc 403. No acute ischemic change, incomplete right bundle branch block morphology. Leftward axis) MDM Narrative Medical Decision Narrative: In summary patient is a 84-year-old male who presents to the emergency department for evaluation of chest pain. Patient is hemodynamically stable upon arrival, afebrile. Physical exam is remarkable for normal breath sounds normal heart sounds no increased work of breathing no adventitious sounds abdomen soft nontender no rebound or guarding or rigidity. Bowel sounds normal active. [place] Coma Score 15. Patient awake alert and oriented person place circumstance.. Differential diagnosis includes ACS versus pneumonia versus upper or lower respiratory tract infection versus anxiety etc. Initial workup will be conducted with hematologic labs twelve-lead EKG plain from chest x-ray. Initial interventions include Toradol Tylenol Zofran for now. Initial workup reviewed by me shows that his hematologic labs are nonactionable his troponin is undetectable my informal interpretation of his plain film chest x-ray shows no acute processes his twelve-lead EKG shows no evidence of ACS COVID and flu are negative urinalysis is bland. Upon repeat evaluation patient has had no recurrent of his chest pain. Given this is more than 8 hours have passed since patient began having chest pain a single troponin is adequate to rule out ACS given the other negatives. On repeat evaluation patient reports feeling completely better after Ativan. 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 I was consulted by the JESSE, and we discussed the complexity of the problems being addressed. I approved the treatment and management plan for this patient's care in the Emergency Department, thus performing a substantive portion of the medical decision making. Joe Álvarez MD
--- NOTE | 2024-12-22 18:42 | ECG_ITS ---
APPROVED REPORT Exam: Resting ECG HR:63 bpm ECG Measurements Heart Rate 63 AXES IN 192 P 78 QRSd 105 QRS -39 QT 396 T 76 QTc 403 Conclusion Sinus rhythm Left axis deviation Incomplete right bundle branch block morphology No acute ischemic changes Electronically signed by : JERAD LOGAN, 12/23/2024 00:05:49
[2024-12-22] MEDS: KETOROLAC 30MG/ML VIAL 15 MG IV (18:53)
[2024-12-22] MEDS: ACETAMINOPHEN 500MG TAB 1000 MG PO (18:53)
[2024-12-22] MEDS: ONDANSETRON 4MG/2ML VIAL 4 MG IV (18:53)
[2024-12-22 18:54] LABS: Coronavirus 19, PCR Not Detected (NotDetected); Influenza A, PCR Not Detected (NotDetected); Influenza B, PCR Not Detected (NotDetected)
--- NOTE | 2024-12-22 19:08 | XR_ITS ---
PROCEDURE INFORMATION: Exam: XR Chest Exam date and time: 12/22/2024 7:46 PM Age: 84 years old Clinical indication: Pain; Chest pressure; Additional info: Chest pain TECHNIQUE: Imaging protocol: Radiologic exam of the chest. Views: 1 view. COMPARISON: CT ANGIO CHEST 09/24/2021 9:30 AM FINDINGS: Lungs: Unremarkable. No consolidation. Pleural spaces: Unremarkable. No pleural effusion. No pneumothorax. Heart/Mediastinum: Unremarkable. No cardiomegaly. Vasculature: Moderate aortic tortuosity. Bones/joints: Unremarkable. IMPRESSION: No acute findings.
[2024-12-22 19:32] LABS: Basophils # 0.1 K/mm3 (0-0.2); Basophils % 1.3 % (0.1-2.0); Eosinophils # 0.1 K/mm3 (0.0-0.4); Eosinophils % 2.3 % (0.1-12.0); Hematocrit 39.1 % (42.0-52.0); Lymphocytes # 1.2 K/mm3 (0.7-4.5); Lymphocytes % 19.5 % (10-50); Mean Corpuscular HGB Conc 33.2 g/dL (31.8-35.4); Mean Corpuscular Volume 90.1 fl (80-94); Mean Platelet Volume 9.7 fl (7.4-10.4); Monocytes # 0.6 K/mm3 (0.1-1.0); Monocytes % 9.9 % (1.7-9.3); Neutrophils % 66.7 % (37.0-80.0); Platelet Count 312 K/mm3 (142-424); Red Blood Count 4.34 M/mm3 (4.60-6.20); White Blood Count 6.1 K/mm3 (4.8-10.8)
[2024-12-22 19:39] LABS: Albumin Level 3.9 g/dl (3.5-5.0); Chloride 104 mmol/L (98-107)
[2024-12-22 19:40] LABS: Potassium 4.1 mmoL/L (3.5-5.1); Sodium 137 mmol/L (136-145)
[2024-12-22 19:42] LABS: Alanine Aminotransferase 25 U/L (12-78); Alkaline Phosphatase 71 U/L (38-126); Aspartate Amino Transferase 34 U/L (17-59); Bilirubin,Total 1.4 mg/dl (0.2-1.3); Blood Urea Nitrogen 19 mg/dl (9-20); Creatinine Clearance Estimated 54 mL/min (50-200); Estimated Glomerular Filt Rate 93 ml/min (>60); GFR (African American) 112 ML/MIN (>60)
[2024-12-22 19:43] LABS: Albumin/Globulin Ratio 2.2 (1.1-1.8); Anion Gap 8.1 mEq/L (5-15); Calcium 8.6 mg/dl (8.4-10.2); Carbon Dioxide 29 mmol/L (22.0-30.0); Globulin 1.8 g/dL (1.3-3.2); Glucose 91 mg/dl (74-100); INR 1.06 (0.9-1.1); Magnesium 1.7 mg/dl (1.6-2.3); Prothrombin Time 11.8 seconds (10.1-12.5); Total Protein,Serum 5.7 g/dl (6.3-8.2)
[2024-12-22 19:54] LABS: NT Pro Brain Natriuretic Pep. 109 pg/mL (0-450)
[2024-12-22 19:57] LABS: Troponin I < 0.01 ng/ml (0.00-0.034)
[2024-12-22 20:00] LABS: Triiodothryronine (T3) Uptake 33 % (23.5-40.5)
[2024-12-22 20:01] LABS: Free Thyroxine Index 2.4 ug/dL (5.93-13.13); T4 (Thyroxine) 7.3 ug/dl (5.53-11.0)
[2024-12-22 20:05] LABS: D-Dimer 0.41 ug/mL (0.0-0.5)
[2024-12-22 20:14] LABS: Thyroid Stimulating Hormone 3.15 uIU/mL (0.465-4.68)
[2024-12-22 20:22] LABS: Procalcitonin 0.048 ng/mL (0.0-2.0)
[2024-12-22 20:25] LABS: HIV Combo NEGATIVE (Negative)
[2024-12-22 20:31] LABS: Hepatitis C Ab Qual. W/ RFX NEGATIVE (Negative)
[2024-12-22] MEDS: LORazepam 2MG/ML VIAL 0.5 MG IV (21:02)
[2024-12-22 21:04] LABS: Microscopic, Urine URINE MICROSCOPIC (MICROSCOPIC)
[2024-12-22 21:08] LABS: Appearance,Urine CLEAR (Clear); Bilirubin,Urine Negative (Negative); Blood, Urine Negative (Negative); Color,Urine YELLOW (Yellow); Glucose,Urine (UA) Negative (Negative); Ketones,Urine TRACE (Negative); Leukocyte Esterase,Urine Negative (Negative); Nitrate,Urine Negative (Negative); Protein,Urine Negative (Negative)
[2024-12-22 21:46] LABS: Mucus,Urine 2+ /lpf; RBC,Urine Occasional #/hpf (0-3); Squamous Epithelial Cell,Urine Occasional #/hpf (0-5); WBC,Urine Occasional #/hpf (0-3)
== END 2024-12-22 22:01 | disposition home or self-care (01) ==
PROVIDERS: Physician Assistant; Emergency Provider Emergency Medicine; PCP Nurse Practitioner Family
DX: R07.9 Chest pain, unspecified (principal); F41.9 Anxiety disorder, unspecified
CPT/HCPCS: 71045; 80053; 81001; 83735; 83880; 84145; 84436; 84443; 84479; 84484; 85025; 85378; 85610; 86803; 87389; 87636; 93005; 96374; 99285; J1885; J2060; J2405

== ENCOUNTER 2025-04-08 23:24 | Emergency (ER) | payer MEDICARE, SELFPAY ==
--- OUTSIDE RECORDS SUMMARY | 2013-12-19 06:55 | XMS_ITS | Continuity of Care Document ---
Author Organization [facility] Address [address] [place] [address] Phone Care Team Providers Care Chief Chemist Name Role Phone Tree Puga MD Unavailable Unavailable Procedures Procedure Date ENDO CHOLANGIOPANCREATOGRAPH/ STENT ERCP OFFICE/OUTPATIENT VISIT, EST OFFICE/OUTPATIENT VISIT, EST OFFICE/OUTPATIENT VISIT, EST OFFICE/OUTPATIENT VISIT, NEW Advance Directives Directive Yes / No Effective Date File Name No Information Encounters Encounter Description Practice Location Reason(s) For Visit Diagnoses Date Provider Providers Copied on Encounter [facility], [address] [place], [place], [id number], tel:[phone] Main Office No Information Edd Leavitt. [address] [place] [address], Formerly named [facility], . tel:[phone] [facility], [address] [place] [address], [address] [place] [address], tel:[phone] [facility] Outpatient No Information Edd Leavitt. [address] [place], [place], Formerly [facility], [place]. tel:[phone] Referring Provider: Tree Granados, [address] [place] [address], Formerly named [facility]. tel:[phone] OFFICE/OUTPAT IENT VISIT, EST [facility], [address] [place], [place], [id number], tel:[phone] Main Office No Information Wilfrido Jiménez. [address] tel:[phone] Referring Provider: Tree Granados, [facility] [address], [place], [facility]. tel:[phone] OFFICE/OUTPAT IENT VISIT, [facility], [facility] [address], [address] [place] [address], tel:[phone] Main Office No Information Edd Leavitt. [facility] E [address] [place] [address], Formerly named [facility], . tel:[phone] Referring Provider: Tree Granados, [address] [place] [address]. tel:[phone] OFFICE/OUTPAT IENT VISIT, [facility], [facility] [address] [place] [address], [address] [place] [address], tel:[phone] Main Office No Information Edd Leavitt. [address] [place] [address], . tel:[phone] Referring Provider: Tree Granados, [address] [place] [address], Formerly named [facility]. tel:[phone] OFFICE/OUTPAT IENT VISIT, [facility], [facility] [address] [place] [address], [address] [place] [address], tel:[phone] Main Office No Information Edd Leavitt. [address] [place] [address]. tel:[phone] Referring Provider: Tree Granados, [address] [place] [address]. tel:[phone] Family History Family Member Type Diagnosis Age At Onset No Information Payers Payer name Insurance type Covered libertarian ID Authordela tiedith(s) Medicare [id number] Medicaid [id number] Social History Type Description Quantity Date Captured [...]
--- OUTSIDE RECORDS SUMMARY | 2024-11-07 07:00 | XMS_ITS ---
Author Name [facility] [place] Organization [facility] [place] Address [address] [place] [address] Care Team Providers Care Bologna Lacer Name Role Phone NOY ACEVEDO Primary Care Provider Unavailabl e Insurance Providers: All historical and current Section Date Range: From patient's date of to the date document was created. This section includes the names of all active insurance providers for the patient. Insurance Provider Type of Coverage Plan Name Start of Policy Coverage End of Policy Coverage Group Number Member ID Insurance Provider's Telephone Number Policy Barragan's Name Patient's Relationship to Policy Barragan MEDICARE (WNR) MEDICARE (M) PART A Sep 17, 2007 PART A [id number] [phone] [id number] FABIAN BOLAÑOS PATIENT MEDICARE (WNR) MEDICARE (M) PART B Sep 17, 2007 PART B [id number] A FABIAN BOLAÑOS PATIENT MEDICARE PART D (WNR) MEDICARE (M) PART D Oct 18, 2018 PART D [id number] [phone] MIKY FABIAN PATIENT MEDICARE PART D (WNR) MEDICARE (M) PART D Oct 18, 2017 PART D [id number] [phone] [facility] (WNR) MEDICARE ADVANTAGE [facility] (WNR) Oct 18, 2022 [id number] FAIBAN BOLAÑOS PATIENT Selected Encounter This section includes the information on record at CT for the Encounter. Date/Time Encounter Type Encounter Description Reason Pro vider Source Nov 07, 2024 11:00 AM Outpatient Encounter ADMIN PAT ACTIVTIES (MASNONCT) IHE Encounter Template Text not used by CT Plan of Treatment: Future Appointments (+ 6 months) and Future Tests (+/- 45 days) The Plan of Treatment section includes future care activities for the patient from all CT treatmentfacilities. This section includes future appointments and future orders which are active, pending or scheduled. Future Appointments This section includes appointments that were scheduled to occur 6 months from the date of the Encounter, up to a maximum of 20 appointments. The data comes from all CT treatment facilities. Appointment Date/Time Appointment Type Appointme nt Facility Name Jan 22, 2025 10:00 AM [facility] Social History: Smoking Status (Most current) and Tobacco Use (All prior to encounter date) This section includes the most current, and the historical, smoking and tobacco- related health factors from the CT facility where the Encounter took place. Current Smoking Status This section includes the most current smoking, or tobacco-related health factor, from the CT facility where the Encounter took place. Date/Time Current Smoking Status Comment Madiha ity Dec 20, 2006 07:55 AM V9 QUIT TOBACCO >7 YEARS AGO [facility] Tobacco Use History This section includes a history of the smoking, or tobacco-related health factors, that were collected on or before the date of the Encounter. The data comes from the CT facility where the Encounter took place. Date/Time Smoking Status/Tobacco Use Comment F acility Apr 01, 2006 10:32 AM HF V9 CURRENT NON-SMOKER 1974 [facility] February 27, 2004 08:58 AM HF V9 LIFETIME NON-SMOKER [facility] Feb 14, 2003 10:01 AM HF V9 CURRENT NON-SMOKER aug 08 [facility] Encounter Notes: All associated encounter notes This section contains the clinical notes associated to the Encounter. Date/Time Encounter Note(s) Provider Source Nov 07, 2024 11:00 AM PRIMARY CARE DENI RS: LOCAL TITLE: PC LETTER FOLLOW UP/PAST RECALL/INACTIVE STANDARD TITLE: PRIMARY CARE LETTERS DATE OF NOTE: NOV 07, 2024@11:00 ENTRY DATE: NOV 07, 2024@11:00:34 AUTHOR: SHAE REID EXP COSIGNER: URGENCY: STATUS: COMPLETED [facility] [address] [place] [address] [facility] [address] [place] [address] Mr. FABIAN BOLAÑOS [address] [place], [place] [address] NOV 07, 2024 Dear Mr. FABIAN BOLAÑOS, Our Records indicate you are past due for an appointment in primary care. We value you as a patient, and are concerned about your overall health. Patients are encouraged to see their Primary Care Provider annually to maintain their health care needs. If you would like to be seen and maintain enrollment in Primary Care, please contact our Telephone Care Program at or local [phone] to schedule an appointment. If you do not wish to be seen, please call the same number listed above, and let us know. We look forward to hearing from you soon. Sincerely, /chinyere/ SHAE REID [facility] Patient Record Number [id number] SHAE REID [facility]
--- OUTSIDE RECORDS SUMMARY | 2024-12-06 05:45 | XMS_ITS | Encounter Summary ---
Author Name [facility] Organization [facility] [place] Address [address] [place] [address] Care Team Providers Care Veterinary Physiologist Name Role Phone NOY ACEVEDO Primary Care [...] PART A Sep 17, 2007 PART A [id number] [phone] FABIAN BOLAÑOS PATIENT MEDICARE (WNR) MEDICARE (M) PART B Sep 17, 2007 PART B [id number] A FABIAN BOLAÑOS PATIENT MEDICARE PART D (WNR) MEDICARE (M) PART D Oct 18, 2018 PART D [id number] MIKY FABIAN PATIENT MEDICARE PART D (WNR) MEDICARE (M) PART D Oct 18, 2017 PART D [id number] [phone] MIKYFABIAN PATIENT [facility] (WNR) MEDICARE ADVANTAGE [facility] (WNR) Oct 18, 2022 [id number] FABIAN BOLAÑOS PATIENT Selected Encounter This section includes the information on record at [facility] for the Encounter. Date/Time Encounter Type Encounter Description Reason Pro vider Source Dec 06, 2024 09:45 AM Outpatient Encounter ADMIN PAT ACTIVTIES (MASNONCT) IHE Encounter Template Text not used by ID Plan of Treatment: Future Appointments (+ 6 months) and Future Tests (+/- 45 days) The Plan of Treatment section includes future care activities for the patient from all [place] treatmentfacilities. This section includes future appointments and future orders which are active, pending or scheduled. Future Appointments This section includes appointments that were scheduled to occur 6 months from the date of the Encounter, up to a maximum of 20 appointments. The data comes from all [place] treatment facilities. Appointment Date/Time Appointment Type Appointme nt Facility Name Jan 22, 2025 10:00 AM [facility] [place] [facility] Social History: Smoking Status (Most current) and Tobacco Use (All prior to encounter date) This section includes the most current, and the historical, smoking and tobacco- related health factors from the [facility] facility where the Encounter took place. Current Smoking Status This section includes the most current smoking, or tobacco-related health factor, from the [facility] facility where the Encounter took place. Date/Time Current Smoking Status Comment Madiha itdara Dec 20, 2006 07:55 AM V9 QUIT TOBACCO >[facility] YEARS AGO [facility] Tobacco Use History This section includes a history of the smoking, or tobacco-related health factors, that were collected on or before the date of the Encounter. The data comes from the ID facility where the Encounter took place. Date/Time Smoking Status/Tobacco Use Comment F acility Apr 01, 2006 10:32 AM HF V9 CURRENT NON-SMOKER [facility] February 27, 2004 08:58 AM HF V9 LIFETIME NON-SMOKER [facility] Feb 14, 2003 10:01 AM HF V9 CURRENT NON-SMOKER aug 08 [facility] Encounter Notes: All associated encounter notes This section contains the clinical notes associated to the Encounter. Date/Time Encounter Note(s) Provider Source Dec 06, 2024 09:45 AM PRIMARY CARE ADMIN ISTRATIVE NOTE: LOCAL TITLE: PC ADMINISTRATIVE NOTE STANDARD TITLE: PRIMARY CARE ADMINISTRATIVE NOTE DATE OF NOTE: DEC 06, 2024@09:45 ENTRY DATE: DEC 06, 2024@09:45:40 AUTHOR: SANTIAGO,CARIDAD R EXP COSIGNER: URGENCY: STATUS: COMPLETED Scheduled Annual PCP with PT by phone, he requested a bit out so it's easier to get [place] travel. Appt reminder letter sent. /chinyere/ CARIDAD SANTIAGO Advanced Land Inspector Signed: 12/06/2024 09:47 CARIDAD SANTIAGO-WAQAR [facility]
--- OUTSIDE RECORDS SUMMARY | 2025-01-22 06:00 | XMS_ITS | Encounter Summary ---
Author Name [facility] [place] [facility] [place] Address [address] [place] [address] Care Team Providers Care Warehouse Checker Name Role Phone NOY ACEVEDO Primary Care [...] PART A Sep 17, 2007 PART A [id number] [phone] FABIAN BOLAÑOS PATIENT MEDICARE (WNR) MEDICARE (M) PART B Sep 17, 2007 PART B [id number] MIKY FABIAN PATIENT MEDICARE PART D (WNR) MEDICARE (M) PART D Oct 18, 2018 PART D [id number] MIKY FABIAN PATIENT MEDICARE PART D (WNR) MEDICARE (M) PART D Oct 18, 2017 PART D [id number] MIKY FABIAN PATIENT [facility] (WNR) MEDICARE ADVANTAGE [facility] (WN) Oct 18, 2022 [id number] FABIAN BOLAÑOS PATIENT Selected Encounter This section includes the information on record at [place] for the Encounter. Date/Time Encounter Type Encounter Description Reason Provider Source Jan 22, 2025 10:00 AM OFFICE O/P EST MOD 30 MIN PRIMARY CARE/MEDICINE ICD-10-CM I48.91 Unspecified atrial fibrillation NOY ACEVEDO Khurram Encounter Template Text not used by [facility] Assessments - Encounter Diagnoses This section includes the primary and secondary diagnoses documented for the Encounter. Date/Time Primary/Secondary Diagnosis Diagnosis Name Provider Source Jan 25, 2025 02:17 PM PRIMARY Unspecified atrial fibrillation NOY ACEVEDO [facility] Jan 25, 2025 02:17 PM SECONDARY Encounter for immunization YESSY YO [facility] Jan 25, 2025 02:17 PM SECONDARY Essential (primary) hypertension NOY ACEVEDO [facility] Jan 25, 2025 02:17 PM SECONDARY Hyperlipidemia, unspecified NOY ACEVEDO [facility] Lab Results: +/- 30 days of the encounter This section includes the Chemistry and Hematology Lab Results on record with [place] for the patient. Radiology Reports and Pathology Reports are provided separately, in subsequent sections. Lab Results This section contains the Chemistry/Hematology Results that were resulted 30 days before or 30 daysafter the date of the Encounter. Date/Time Source Result Type Result - Unit Interpretation Reference Range Specimen Type Comment Jan 22, 2025 11:06 AM [facility] B12 VITAMIN PLASMA Specimen Type: PLASMA Comment: Estimated Glomerular Filtration Rate (eGFR) calculated using the 2020 Chronic Kidney Disease-Epidemio logy (CKD-EPI) Collaboration creatinine equation; units of measure are mL/min/1.73 m2. Results are only valid for adults (>=18 years) whose serum creatinine is in a steady state. eGFR calculations are not valid for patients with acute kidney injury and for patients on dialysis. Creatinine-based estimates of kidney function may also be inaccurate in patients with reduced creatinine generation due to decreased muscle mass (e.g., malnutrition, severe hypoalbuminemia, sarcopenia, chronic neuromuscular disease, amputations, severe heart failure or liver disease) and in patients with increased creatinine generation due to increased muscle mass (e.g., muscle builders, anabolic steroids) or increased dietary intake. As drug clearance is proportional to total GFR and not GFR indexed to body surface area (BSA), in individuals with a BSA substantially different than 1.73 m2, drug dosing should be based on the reported eGFR value de-indexed from BSA by multiplying by the individual's BSA and dividing by 1.73. CKD is diagnosed based on abnormalities of kidney structure or function, present for >3 months, with implications for health and disease. CKD is classified and staged based on cause, eGFR and albuminuria (quantified as urine albumin to creatinine ratio). An eGFR >60 mL/min/1.73 m2 in the absence of increased urine albumin excretion or structural abnormalities does not represent CKD. ====== eGFR CKD Interpretation (mL/min/1.73 m2) stage >=90 G1 Normal 60-89 G2 Mild decrease 45-59 G3A Mild to moderate decrease 30-44 G3B Moderate to severe decrease 15-29 G4 Severe decrease <15 G5 Kidney failure Vitamin B12 test may not yield results when protein level of sample is too elevated. Ordering Provider: NOY ACEVEDO Report Released Date/Time: Jan 22, 2025 10:50 AM Reporting Lab: [address] [id number] Performing Lab: [address] [address] B12 VITAMIN 297 pg/mL 213-816 Jan 22, 2025 11:06 AM [facility] PANEL 2 PLASMA Specimen Type: PLASM A Comment: Estimated Glomerular Filtration Rate (eGFR) calculated using the 2020 Chronic Kidney Disease-Epidemiology (CKD-EPI) Collaboration creatinine equation; units of measure are mL/min/1.73 m2. Results are only valid for adults (>=18 years) whose serum creatinine is in a steady state. eGFR calculations are not valid for patients with acute kidney injury and for patients on dialysis. Creatinine-based estimates of kidney function may also be inaccurate in patients with reduced creatinine generation due to decreased muscle mass (e.g., malnutrition, severe hypoalbuminemia, sarcopenia, chronic neuromuscular disease, amputations, severe heart failure or liver disease) and in patients with increased creatinine generation due to increased muscle mass (e.g., muscle builders, anabolic steroids) or increased dietary intake. As drug clearance is proportional to total GFR and not GFR indexed to body surface area (BSA), in individuals with a BSA substantially different than 1.73 m2, drug dosing should be based on the reported eGFR value de-indexed from BSA by multiplying by the individual's BSA and dividing by 1.73. CKD is diagnosed based on abnormalities of kidney structure or function, present for >3 months, with implications for health and disease. CKD is classified and staged based on cause, eGFR and albuminuria (quantified as urine albumin to creatinine ratio). An eGFR >60 mL/min/1.73 m2 in the absence of increased urine albumin excretion or structural abnormalities does not represent CKD. eGFR CKD Interpretation (mL/min/1.73 m2) stage >=90 G1 Normal 60-89 G2 Mild decrease 45-59 G3A Mild to moderate decrease 30-44 G3B Moderate to severe decrease 15-29 G4 Severe decrease <15 G5 Kidney failure Vitamin B12 test may not yield results when protein level of sample is too elevated. Ordering Provider: NOY ACEVEDO Report Released Date/Time: Jan 22, 2025 10:50 AM Reporting Lab: [address] [phone] Performing Lab: [address] [address] TOTAL PROTEIN 7.1 g/dL 6.4-8.3 ALBUMIN 4.4 g/dL 3.5-5.2 TOTAL BILIRUBIN 2.0 mg/dL H 0.2-1.2 AST 28 U/L 5-34 ALT 19 U/L 0-55 ALK PHOS 63 U/L 40-150 BILIRUBIN-DIRECT 0.5 mg/dL 0.0-0.5 Jan 22, 2025 11:06 AM [facility]ASMA Specimen Type: WILLIE MANZANO Comment: Estimated Glomerular Filtration Rate (eGFR) calculated using the 2020 Chronic Kidney Disease-Epidemiology (CKD-EPI) Collaboration creatinine equation; units of measure are mL/min/1.73 m2. Results are only valid for adults (>=18 years) whose serum creatinine is in a steady state. eGFR calculations are not valid for patients with acute kidney injury and for patients on dialysis. Creatinine-based estimates of kidney function may also be inaccurate in patients with reduced creatinine generation due to decreased muscle mass (e.g., malnutrition, severe hypoalbuminemia, sarcopenia, chronic neuromuscular disease, amputations, severe heart failure or liver disease) and in patients with increased creatinine generation due to increased muscle mass (e.g., muscle builders, anabolic steroids) or increased dietary intake. As drug clearance is proportional to total GFR and not GFR indexed to body surface area (BSA), in individuals with a BSA substantially different than 1.73 m2, drug dosing should be based on the reported eGFR value de-indexed from BSA by multiplying by the individual's BSA and dividing by 1.73. CKD is diagnosed based on abnormalities of kidney structure or function, present for >3 months, with implications for health and disease. CKD is classified and staged based on cause, eGFR and albuminuria (quantified as urine albumin to creatinine ratio). An eGFR >60 mL/min/1.73 m2 in the absence of increased urine albumin excretion or structural abnormalities does not represent CKD. eGFR CKD Interpretation (mL/min/1.73 m2) stage >=90 G1 Normal 60-89 G2 Mild decrease 45-59 G3A Mild to moderate decrease 30-44 G3B Moderate to severe decrease 15-29 G4 Severe decrease <15 G5 Kidney failure Vitamin B12 test may not yield results when protein level of sample is too elevated. Ordering Provider: NOY ACEVEDO Report Released Date/Time: Jan 22, 2025 10:50 AM Reporting Lab: [address] [address] Performing Lab: [address] [address] CREATININE 0.82 mg/dL 0.72-1.25 UREA NITROGEN 17 mg/dL 9-25 GLUCOSE 91 mg/dL 74-100 SODIUM 142 mmol/L 136-145 POTASSIUM 4.0 mmol/L 3.5-5.1 CHLORIDE 106 mmol/L 98-107 CO2 27 mmol/L 22-29 CALCIUM 9.6 mg/dL 8.4-10.2 ANION GAP 9 meq/L 3-19 eGFR (CKD-EPI) 88 Jan 22, 2025 11:06 AM [facility] 25-OH VITAMIN D SERUM Specime n Type: SERUM Comment: The National Institutes of Health (NIH) recommendations state: <12 ng/mL - Deficient 20 - 50 ng/mL - Optimal Levels - adequate for most people. >50 ng/mL - Increased risk of hypercalciuria/other health problems - clinical correlation is required. These reference ranges represent clinical decision values rather than population-based reference values. Ordering Provider: NOY ACEVEDO Report Released Date/Time: Jan 22, 2025 10:50 AM Reporting Lab: [address] [phone] Performing Lab: [address] [address] 25-OH VITAMIN D 22.8 ng/mL 20.0-50.0 Jan 22, 2025 11:06 AM [facility] THYROID PROFILE PLASMA Specimen Type: PLASM A Comment: Estimated Glomerular Filtration Rate (eGFR) calculated using the 2020 Chronic Kidney Disease-Epidemiology (CKD-EPI) Collaboration creatinine equation; units of measure are mL/min/1.73 m2. Results are only valid for adults (>=18 years) whose serum creatinine is in a steady state. eGFR calculations are not valid for patients with acute kidney injury and for patients on dialysis. Creatinine-based estimates of kidney function may also be inaccurate in patients with reduced creatinine generation due to decreased muscle mass (e.g., malnutrition, severe hypoalbuminemia, sarcopenia, chronic neuromuscular disease, amputations, severe heart failure or liver disease) and in patients with increased creatinine generation due to increased muscle mass (e.g., muscle builders, anabolic steroids) or increased dietary intake. As drug clearance is proportional to total GFR and not GFR indexed to body surface area (BSA), in individuals with a BSA substantially different than 1.73 m2, drug dosing should be based on the reported eGFR value de-indexed from BSA by multiplying by the individual's BSA and dividing by 1.73. CKD is diagnosed based on abnormalities of kidney structure or function, present for >3 months, with implications for health and disease. CKD is classified and staged based on cause, eGFR and albuminuria (quantified as urine albumin to creatinine ratio). An eGFR >60 mL/min/1.73 m2 in the absence of increased urine albumin excretion or structural abnormalities does not represent CKD. eGFR CKD Interpretation (mL/min/1.73 m2) stage >=90 G1 Normal 60-89 G2 Mild decrease 45-59 G3A Mild to moderate decrease 30-44 G3B Moderate to severe decrease 15-29 G4 Severe decrease <15 G5 Kidney failure Vitamin B12 test may not yield results when protein level of sample is too elevated. Ordering Provider: NOY ACEVEDO Report Released Date/Time: Jan 22, 2025 10:50 AM Reporting Lab: [address] [address] Performing Lab: [address] [address] TSH 2.8759 m[IU]/mL 0.3500-4.9400 FREE T4 0.87 ng/mL 0.70-1.48 Jan 22, 2025 11:06 AM [facility] GLYCOHEMOGLOBIN BLOOD Specimen Type: BLOOD Comment: [place] guidelines for A1c interpretation: Glycemic control targets are based on Shared Decision Making between clinicians and patients. Criteria used to establish an A1c target recommendation can be found at https://www.ma.gov/qualityandpatientsafety/ and include the use of result accuracy and precision(CV) of the A1c tests clinicians utilize at their own sites of practice. Values obtained from A1C measurements can vary. For typical A1C assays, a reported value of 7.0 could actually be between 6.72 and 7.28 if measured by a reference method. A reported value of 9.0 could actually be between 8.73 and 9.27. Ref: https://ngsp.org/CAPdata.asp. The in-house [employer]appe-Quantine D-100 analyzer has a historical CV <= 2%. Contact the laboratory for further performance characteristics of this assay. Ordering Provider: NOY ACEVEDO Report Released Date/Time: Jan 22, 2025 10:50 AM Reporting Lab: [place] [address] [facility] [address] Performing Lab: [facility] [address] [facility] [address] GLYCOHEMOGLOBIN 5.2 4.4-5.6 Jan 22, 2025 11:06 AM [facility] LIPID PROFILE PLASMA Specimen Type: PLASM A Comment: Estimated Glomerular Filtration Rate (eGFR) calculated using the 2020 Chronic Kidney Disease-Epidemiology (CKD-EPI) Collaboration creatinine equation; units of measure are mL/min/1.73 m2. Results are only valid for adults (>=18 years) whose serum creatinine is in a steady state. eGFR calculations are not valid for patients with acute kidney injury and for patients on dialysis. Creatinine-based estimates of kidney function may also be inaccurate in patients with reduced creatinine generation due to decreased muscle mass (e.g., malnutrition, severe hypoalbuminemia, sarcopenia, chronic neuromuscular disease, amputations, severe heart failure or liver disease) and in patients with increased creatinine generation due to increased muscle mass (e.g., muscle builders, anabolic steroids) or increased dietary intake. As drug clearance is proportional to total GFR and not GFR indexed to body surface area (BSA), in individuals with a BSA substantially different than 1.73 m2, drug dosing should be based on the reported eGFR value de-indexed from BSA by multiplying by the individual's BSA and dividing by 1.73. CKD is diagnosed based on abnormalities of kidney structure or function, present for >3 months, with implications for health and disease. CKD is classified and staged based on cause, eGFR and albuminuria (quantified as urine albumin to creatinine ratio). An eGFR >60 mL/min/1.73 m2 in the absence of increased urine albumin excretion or structural abnormalities does not represent CKD. eGFR CKD Interpretation (mL/min/1.73 m2) stage >=90 G1 Normal 60-89 G2 Mild decrease 45-59 G3A Mild to moderate decrease 30-44 G3B Moderate to severe decrease 15-29 G4 Severe decrease <15 G5 Kidney failure Vitamin B12 test may not yield results when protein level of sample is too elevated. Ordering Provider: NOY ACEVEDO Report Released Date/Time: Jan 22, 2025 10:50 AM Reporting Lab: [address] [phone] Performing Lab: [address] [address] CHOLESTEROL 155 mg/dL 0-199 TRIGLYCERIDE 57 mg/dL 0-149 HDL CHOLESTEROL 64 mg/dL 40-69 DIRECT LDL CHOL. 86 mg/dL 0-100 Jan 22, 2025 11:06 AM [facility] CBC/PLT BLOOD Specimen Type: BLOOD No comment entered. Ordering Provider: NOY ACEVEDO Report Released Date/Time: Jan 22, 2025 10:50 AM Reporting Lab: [address] [address] Performing Lab: [address] [address] WBC 6.4 10*3/uL 5.0-10.0 RBC 4.94 10*6/uL 4.6-6.2 HGB 14.6 g/dL 14.0-18.0 HCT 44.6 42.0-52.0 MCV 90.3 fL 80.0-94.0 MCH 29.6 pg 27.0-31.0 MCHC 32.7 g/dL 32.0-36.0 PLT 324 10*3/uL 150-450 MPV 10.7 fL 9.0-13.1 RDW 13.0 11.0-16.0 NRBC 0.0 0.0-0.0 Vital Signs: All taken on the encounter date This section contains inpatient and outpatient Vital Signs collected on the date of the Encounter. Date/Time Temperature Pulse Blood Pressure Respiratory Rate SP02 Pain Height Weight Body Mass Index Source Jan 22, 2025 10:14 AM 136/63 [facility] Jan 22, 2025 10:14 AM 136/63 [facility] Jan 22, 2025 09:54 AM 97.8 69 155/87 20 98 3 70 148 21 [facility] Immunizations: All administered on the encounter date This section contains immunizations associated to the Encounter. Immunization Series Date Issued Administered By Site Reaction Lot Number CVX Code Drug Broker In Charge Comment(s) Source TD (ADULT), 5 LF TETANUS TOXOID, PRESERVATIVE FREE, ADSORBED Jan 22, 2025 Yusuf YO AMY LEFT DELTO ID [id number] DAVIDOFI ADDISON ADMINISTERE D AT [place] [facility] Social History: Smoking Status (Most current) and Tobacco Use (All prior to encounter date) This section includes the most current, and the historical, smoking and tobacco- related health factors from the [place] facility where the Encounter took place. Current Smoking Status This section includes the most current smoking, or tobacco-related health factor, from the [place] facility where the Encounter took place. Date/Time Current Smoking Status Comment Madiha ity Jan 22, 2025 10:00 AM [place]-TOBACCO USE FOR JOVANNA CIGARETTES [facility] Tobacco Use History This section includes a history of the smoking, or tobacco-related health factors, that were collected on or before the date of the Encounter. The data comes from the [place] facility where the Encounter took place. Date/Time Smoking Status/Tobacco Use Comment F acility Jan 22, 2025 10:00 AM [place]-TOBACCO USE FOR JOVANNA CIGARETTES [facility] Jan 25, 2024 09:30 AM VA-TOBACCO FORMER USER [facility] Jan 25, 2024 09:30 AM VA-TOBACCO QUIT 15 YRS OR MORE [facility] February 18, 2023 10:00 AM VA-TOBACCO FORMER USER [facility] February 18, 2023 10:00 AM VA-TOBACCO QUIT 15 YRS OR MORE [facility] March 17, 2022 09:30 AM VA-TOBACCO NEVER USED [facility] March 11, 2021 09:30 AM VA-TOBACCO FORMER USER [facility] March 11, 2021 09:30 AM VA-TOBACCO QUIT 15 YRS OR MORE [facility] Apr 02, 2020 09:08 AM VA-TOBACCO FORMER USER [facility] Apr 02, 2020 09:08 AM VA-TOBACCO QUIT 15 YRS OR MORE [facility] February 28, 2019 09:07 AM VA-TOBACCO FORMER USER [facility] February 28, 2019 09:07 AM VA-TOBACCO QUIT 15 YRS OR MORE [facility] February 16, 2018 03:37 PM V9 QUIT TOBACCO >7 YEARS AGO [facility] Oct 27, 2016 09:30 AM V9 QUIT TOBACCO >7 YEARS AGO [facility] Sep 26, 2015 10:02 AM V9 QUIT TOBACCO >7 YEARS AGO [facility] Oct 15, 2014 09:52 AM V9 QUIT TOBACCO >7 YEARS AGO [facility] Feb 09, 2013 10:08 AM V9 QUIT TOBACCO >7 YEARS AGO [facility] Feb 03, 2012 10:10 AM V9 QUIT TOBACCO >7 YEARS AGO [facility] Mar 30, 2011 08:54 AM V9 QUIT TOBACCO >7 YEARS AGO [facility] Mar 19, 2010 09:06 AM V9 QUIT TOBACCO >7 YEARS AGO [facility] Mar 19, 2010 09:06 AM V9 TOBACCO OFFERED [facility] Encounter Notes: All associated encounter notes This section contains the clinical notes associated to the Encounter. Date/Time Encounter Note(s) Provider Source Jan 22, 2025 02:33 PM PRIMARY CARE LETTERS: LOCAL TITLE: PC LETTER STANDARD TITLE: PRIMARY CARE LETTERS DATE OF NOTE: JAN 22, 2025@14:33 ENTRY DATE: JAN 22, 2025@14:33:48 AUTHOR: NOY ACEVEDO EXP COSIGNER: URGENCY: STATUS: COMPLETED Mr. FABIAN BOLAÑOS [id number] [place] [address] Dear FABIAN BOLAÑOS This letter is to inform you of your recent lab results done at your last primary care visit. Results are listed below: LIPID PANEL Collection DT Specimen Test Name Result Units Ref Range 01/22/2025 11:06 PLASMA!! CHOLESTEROL 155 mg/dL 0 - 199 01/22/2025 11:06 PLASMA!! TRIGLYCERIDE 57 mg/dL 0 - 149 01/22/2025 11:06 PLASMA!! HDL CHOLESTEROL 64 mg/dL 40 - 69 01/22/2025 11:06 PLASMA!! DIRECT LDL CHOL. 86 mg/dL 0 - 100 !! Indicates COMMENTS AVAILABLE...Refer to Interim Lab Report. Collection DT Specimen Test Name Result Units Ref Range 01/22/2025 11:06 PLASMA!! DIRECT LDL CHOL. 86 mg/dL 0 - 100 !! Indicates COMMENTS AVAILABLE...Refer to Interim Lab Report. Goal cholesterol numbers are listed below: total cholesterol less than 200 triglycerides less than 150 HDL or good cholesterol greater than 40 LDL or bad cholesterol less than 100 PANEL 1 Jose F. date GLUCOSE BUN CREAT SODIUM K CHLOR CO2 01/22/25 11:06 91 17 0.82 142 4.0 106 27 ALT (liver test) 19 U/L (01/22/2025 11:06) normal range 21-72 Hematocrit (anemia) Collection DT Specimen Test Name Result Units Ref Range 01/22/2025 11:06 BLOOD HCT 44.6 % 42.0 - 52.0 PSA (prostate surface antigen) ____normal range 0-4 Thyroid level 2.8759 mIU/mL (01/22/2025 11:06) normal range 0.35-5.50 There are HEALTHY lifestyle behaviors RECOMMENDED BELOW: 1. EXERCISE. Walking is a good exercise to do. The goal is to walk for 30 minutes at a time for five days a week. 2. Diet/Lose Weight. Eat a diet that is low in fat and cholesterol; avoid fried foods, LIMIT OR AVOID foods that are high in carbohydrates, like potatoes and bread (think white foods). Flax seed OIL has also been shown to decrease cholesterol. FISH OIL OR [place]-3 fish oil capsules CAN DECREASE TRIGLYCERIDES. Strive to maintain a health body weight throughout lifespan. 3. NO use OF Tobacco products. Recommend tobacco cessation to reduce overall risks of ALL cancers. Please feel free to call telephone care with any questions, concerns, or health problems: Toll free: Sincerely, MARY JO Garcia [place] Primary Care Team Sincerely, /chinyere/ NOY ACEVEDO MSN, [employer]ACTICE REGISTERED NURSE Patient Record Number [id number] NOY ACEVEDO [facility] Jan 22, 2025 11:47 AM ADMINISTRATIVE NOTE: LOCAL TITLE: ESSENTIAL MEDICATIONS LIST FOR REVIEW (EMLR) STANDARD TITLE: ADMINISTRATIVE NOTE DATE OF NOTE: JAN 22, 2025@11:47 ENTRY DATE: JAN 22, 2025@11:47:42 AUTHOR: NOY ACEVEDO EXP COSIGNER: URGENCY: STATUS: COMPLETED Active and Recently Outpatient Medications (including Supplies): Active Non-VA Medications Status 1) Non-VA APIXABAN 5MG TAB 5MG MOUTH TWICE A DAY ACTIVE 2) Non-VA ATORVASTATIN CALCIUM 40MG TAB 20MG MOUTH DAILY ACTIVE 3) Non-VA FLECAINIDE ACETATE 50MG TAB 50MG MOUTH TWICE A DAY ACTIVE 4) Non-VA OMEPRAZOLE 20MG EC CAP 20MG MOUTH EVERY DAY 30 ACTIVE MINUTES BEFORE A MEAL Allergies: local and remote Patient has answered NKA No Remote Allergy/ADR Data available for this patient Review of medications include: Patient allergies (Remote and Local) and active and pending prescriptions dispensed from this [facility] (local) and dispensed from another [place] or [facility] facility (remote and pending) as well as local inpatient orders (pending and active) and clinic medications (IMOs), locally documented non-VA medications and local prescriptions that have or been discontinued in the past 90 days. With the exception of Allergies, if a category is not listed below, it means there were no relevant medications for the patient. MRT5-Local & Remote Allergies Inpatient Active/Pending: No local medications found. No remote medications found. Outpatient Active/Pending: No local medications found. No remote medications found. No local medications found. No remote medications found. Inpatient Nonva Medications: APIXABAN 5MG TAB Directions: 5MG MOUTH TWICE A DAY Status: ACTIVE ATORVASTATIN CALCIUM 40MG TAB Directions: 20MG MOUTH DAILY Status: ACTIVE FLECAINIDE ACETATE 50MG TAB Directions: 50MG MOUTH TWICE A DAY Status: ACTIVE OMEPRAZOLE 20MG EC CAP Directions: 20MG MOUTH EVERY DAY 30 MINUTES BEFORE A MEAL Status: ACTIVE Inpatient : No local medications found. No remote medications found. Inpatient Discontinued: No local medications found. No remote medications found. /chinyere/ NOY ACEVEDO, MSN, [employer] PRACTICE REGISTERED NURSE Signed: 01/22/2025 11:47 NOY ACEVEDO [facility] Jan 22, 2025 10:25 AM NURSE PRACTITIONER NOTE: LOCAL TITLE: NURSE PRACTITIONER PROGRESS NOTE STANDARD TITLE: NURSE PRACTITIONER NOTE DATE OF NOTE: JAN 22, 2025@10:25 ENTRY DATE: JAN 22, 2025@10:25:38 AUTHOR: NOY ACEVEDO EXP COSIGNER: URGENCY: STATUS: COMPLETED NOTE DATED:JAN 22, 2025 FABIAN BOLAÑOSROY Mr. FABIAN BOLAÑOS [address] [place] [place], [place] [id number] 84 WHITE MALE VISIT: 01/22/25 10:00 Type of Visit Today: ( )episodic (X )routine f/u ( )NEW PATIENT PT PROBLEM LIST: Active problems - Computerized Problem List is the source for the followin. Exposure to potentially hazardous substance ([facility] [id number]) 2. Atrial fibrillation 3. Hearing loss 4. Aortic valve insufficiency 5. Hyperlipidemia 6. Benign hypertension FAMILY HISTORY: -mother age 95 +diabetes +dementia -father age 87 +liver cancer +dementia NO FAMILY HX OF PROSTATE OR COLON CANCER SURGICAL HISTORY: inguinal hernia bilat right knee arthroscopy SOCIAL HISTORY Tobacco Use:denies--HX OF SMOKING UP TO 3PPD X15Y Alcohol Use:denies Street Drug use: denies Marital Status: Occupation:retired Exercise: WALKING VET LIVES ALONE--DAUGHTER AND SON CHECKS ON VET DAILY Active Outpatient Medications: ACTIVE OUTPATIENT PRESCRIPTIONS - NONE FOUND MEDICATION RECONCILIAITION: - The Outpatient Essential Medication List for review (EMLR) was reviewed with the patient/caregiver and the patient was provided an updated reconciled medication list- - Discrepancies were corrected or sent to the ordering provider to correct Allergies: Patient has answered NKA HISTORY OF PRESENT ILLNESS:here for f/u chronic medical problems reports med list as accurate -local pcp: DECLAN DELUCA -local cardiology: ALLA FELIPE -[facility] HARLEY FELIPE -atrial fibrillation: [facility]--currently taking flecainide and eliquis 5mg bid started 03/2020 -htn: reports home bp readings 130'S/70'S--METOPROLOL WAS STOPPED TODAY IN CLINIC 136/63 -hyperlipidemia: tolerating and compliant with atorvastatin -KNEE DJD BILAT: VET REPORTS FOLLOWING WITH [facility] FOR KNEE INJECTIONS -SOCIAL: VET LIVES ALONE--VET ABOUT 3YEARS--DENIES ANY ISSUES AT HOME CARING FOR SELF--REPORTS HAS IWATCH IN CASE OF FALLS; HAS QUAD CANE General: Negative for weight changes, fevers, fatigue, and weakness Skin: Negative for recent changes or new suspicious lesions Eyes: Negative for recent acute vision change ENT: Negative for deafness, tinnitus, or ear pain; Negative for chronic nasal discharge Respiratory: Negative for wheezing, dyspnea, nocturnal dyspnea, cough, hemoptysis CV: Negative for palpitations, tachycardia, chest pain/discomfort, exertional dyspnea, lower extremity edema GI: Negative for recent changes in bowel habits or bleeding from bowels : Negative for dysuria, frequency, urgency, incontinence, difficulty with stream M/S: Negative for new acute joint pain or loss of strength/function Neuro: Negative for syncope or LOC Psych: Negative for SI/HI PHYSICAL EXAM: TODAY'S VITAL SIGNS: 136/63 (01/22/2025 10:14) 69 (01/22/2025 09:54) 20 (01/22/2025 09:54) 97.8 F [36.6 C] (01/22/2025 09:54) 3 (01/22/2025 09:54) JAN 22, 2025@09:54:24 -- PULSE OXIMETRY: 98 JAN 22, 2025@09:54:24 -- PULSE OXIMETRY: 98 via ROOM AIR) GENERAL: vet alert and cooperative in NAD SKIN: [place], warm, and dry with good turgor; no suspicious lesions noted HEENT: Normocephalic, no conjunctiva infections-sclera white, nares patent, oral mucosa pink w/o lesions or ulcerations NECK: supple without JVD LUNGS: CTA Bilat, respiratory effort unlabored at rest CARD: RRR w/o M/R/G ABD: non-tender and nondistended EXT: No edema or cyanosis M/S: ambulatory, adequate upper and lower extremity strength NEURO: General behavior, LOC, thought content, and emotional status normal. No involuntary movements. Coordination and sensory function intact LABS: PANEL 1 Jose F. date GLUCOSE BUN CREAT SODIUM K CHLOR CO2 01/25/24 10:30 101 H 15 0.84 142 4.2 106 28 PANEL 2 Jose F. date TOT PRO ALBUMIN SGOT SGPT Z ALK PHZ DIRECTZ TOTAL 01/25/24 10:30 6.8 4.3 27 25 72 0.6 H 1.7 H CBC/PLT, BLOOD - Partial Panel found WBC , BLOOD, 01/25/24 6.6 K/cmm (5.0 - 10.0) RBC, BLOOD, 01/25/24 5.11 M/cmm (4.6 - 6.2) HGB, BLOOD, 01/25/24 14.9 g/dL (14.0 - 18.0) HCT, BLOOD, 01/25/24 45.7 % (42.0 - 52.0) MCV, BLOOD, 01/25/24 89.4 fL (80.0 - 94.0) MCH, BLOOD, 01/25/24 29.2 pg (27.0 - 31.0) MCHC, BLOOD, 01/25/24 32.6 g/dL (32.0 - 36.0) RDW, BLOOD, 01/25/24 13.4 % (11.0 - 16.0) PLT, BLOOD, 01/25/24 291 K/cmm (150 - 450) MPV, BLOOD, 01/25/24 9.8 fL (9.0 - 13.1) NRBC, BLOOD, 01/25/24 0.0 % (0.0 - 0.0) Lipid Prof Jose F. date CHOL TRIG HDL LIPID PHLDL CHOLSERUM AP 01/25/24 10:30 171 63 71 H Z GLYCOHEMOGLOBIN (HPLC) 01/25/24 10:30 5.5 MICROALBUMIN QUANT, URINE - None Found Z PROSTATIC ANTIGEN - NONE FOUND THYROID PROFILE, SERUM - None Found * ASSESSMENT/PLAN: -atrial fibrillation: follows [facility] -htn: STABLE NO MEDS--BP GOALS <140/90 -hyperlipidemia: CHECK P2/FLP CONT atorvastatin HEALTH MAINTENANCE: FLU VACCINE: PNEUMOVAX: TDAP:TODAY/2024 COLONOSCOPY: FIT: PSA: LIPID PROFILE: FASTING RSV: 06/2024 RENATO CONSULTS: (x ) MEDICATION LIST GIVEN AND REVIEWED WITH PATIENT ( ) active with my [facility] vet The /caregiver verbalized understanding of the topics covered/discussed in today's visit. /caregiver given opportunity to ask questions to provider. I spent 30 minutes today performing medically necessary history and exam, managing the patients conditions, documenting clinical info in health record, along with the following: Preparing to see pt. (ex.: review of tests, last visit notes) Obtain/review separately obtained history Ordering tests, procedures, medications Refer and/or communicate with other providers regarding patient Independently interpreting results & communicating results to patient/caregiver Care coordination (not separately reported) Counseling and education pt/family/caregiver Patient advised if an appointment is needed sooner than the recommended recall, call telephone care for followup. RETURN TO CLINIC:7M/PRN RECALL:08/2025 SCHEDULE: /chinyere/ NOY ACEVEDO, MSN, [employer] PRACTICE REGISTERED NURSE Signed: 01/22/2025 11:47 NOY ACEVEDO [facility] Jan 22, 2025 10:02 AM PRIMARY CARE NURSING NOTE: LOCAL TITLE: [employer]/medical records coder Note STANDARD TITLE: PRIMARY CARE NURSING NOTE DATE OF NOTE: JAN 22, 2025@10:02 ENTRY DATE: JAN 22, 2025@10:02:43 AUTHOR: JANIA YO EXP COSIGNER: URGENCY: STATUS: COMPLETED The patient was given a list of his current medications, instructed to review and discuss any changes or problems with their provider. Patient advised to carry a list of current medications and any allergies with them in the event of emergency situations. Yes - [place]/Caregiver verbalized understanding of topics discussed and education provided HTN Assess for Elevated BP>=140/90: Repeat blood pressure:1014 136/63 Patient reported blood pressure Systolic BP 136 Diastolic BP 63 Vet currently asymptomatic. Vet states he did take his BP medication this morninG. Alcohol Use Screen (AUDIT-C): Alcohol Screen: SCREEN FOR ALCOHOL (AUDIT-C) An alcohol screening test (AUDIT-C) was negative (score=0). 1. How often did you have a drink containing alcohol in the past year? Consider a drink to be a 12 ounce can or bottle of regular beer, 8 ounces of malt liquor, a 5 ounce glass of table wine, or a 1.5 ounce shot of liquor (like scotch, gin, or vodka). Never 2. How many drinks containing alcohol did you have on a typical day when you were drinking in the past year? Response not required due to responses to other questions. 3. How often did you have six or more drinks on one occasion in the past year? Response not required due to responses to other questions. Depression Screening: Perform PHQ-2 A PHQ-2 screen was performed. The score was 4 which is a positive screen for depression. Over the past two weeks, how often have you been bothered by the following problems? 1. Little interest or pleasure in doing things More than half the days 2. Feeling down, depressed, or hopeless More than half the days Licensed Independent Provider notified of positive screen and need for follow-up. Name of provider notified: MARY JO GARCIA Suicide Screen: C-SSRS Screening [place] Suicide Severity Rating Scale (C-SSRS) screener 1. Over the past month, have you wished you were or wished you could go to sleep and not wake up? No 2. Over the past month, have you had any actual thoughts of killing yourself? No 3. Over the past month, have you been thinking about how you might do this? Response not required due to responses to other questions. 4. Over the past month, have you had these thoughts and had some intention of acting on them? Response not required due to responses to other questions. 5. Over the past month, have you started to work out or worked out the details of how to kill yourself? Response not required due to responses to other questions. 6. If yes, at any time in the past month did you intend to carry out this plan? Response not required due to responses to other questions. 7. In your lifetime, have you ever done anything, started to do anything, or prepared to do anything to end your life (for example, collected pills, obtained a gun, gave away valuables, went to the roof but didn't jump)? No 8. If YES, was this within the past 3 months? Response not required due to responses to other questions. ADL/IADL Functional Measures(V9): Incontinence Screen: Within the past 12 months, has the patient had any characteristics of incontinence (ability, voiding, leakage, etc.)? No incontinence. Falls Screen: Patient does not report falls within the past 12 months. Dementia Warning Signs: Please indicate below whether the patient or caregiver report any warning signs of Dementia? No warning signs of dementia noted. [place] Index of [place] in Activities of Daily Living: UNDER[place]OD INDEX FOR ADL ASSESSMENT: UNDER[place]OD Index of [place] in Activities of Daily Living was completed at this encounter. BATHING: Patient needs no supervision, direction or personal assistance with bathing. DRESSING: Patient needs no supervision, direction or personal assistance with dressing. TOILETING: Patient needs no supervision, direction or personal assistance with toileting. TRANSFERRING: Patient needs no supervision, direction or personal assistance with transferring. CONTINENCE: Patient needs no supervision, direction or personal assistance with bowel continence. FEEDING: Patient needs no supervision, direction or personal assistance with feeding/eating. ENTER TOTAL SCORE BELOW: TOTAL POINTS: = [ 6 ] NOTE: 6-5 = FULL FUNCTION (patient independent) INSTRUMENTAL ACTIVITIES OF DAILY LIVING (IADL) SCALE ([place]) Telephone: 1 point - Looks up numbers, dials, receives and makes calls without help Shoppin point - Takes care of all shopping needs independently Food preparation: 1 point - Plans, prepares, and serves adequate meals independently Housekeepin point - Maintains house alone or with occasional assistance (e.g., heavy work domestic help ) Laundry: 1 point - Able to do personal laundry completely. Mode of transportation: 1 point - Travels independently on public transportation or drives own car Responsibility for own medications: 1 point - Is responsible for taking medication in correct dosages at correct time Ability to handle finances: 1 point - Manages financial matters independently (budgets, writes checks, pays rent and bills, goes to bank), collects and keeps track of income SCORING: The total score may range from 0 - 8. A lower score indicates a higher level of dependence. Total score: 8 points Learning Readiness Assessment: Preferred language for discussing health care [place] NEW ASSESSMENT LEARNING BARRIERS No barriers to learning Hearing Barrier Comment: HEARING LOSS READING LIMITATIONS No reading limitations PREFERRED METHODS FOR LEARNING Written/Printed Material INTERESTED IN LEARNING (MOTIVATED) Yes, interested in learning what? Comment: HIS HEALTHCARE PERSON BEING EDUCATED TODAY Patient Education was provided on the following topics RESPONSE Verbalizes Successfully Tobacco Use Screening: The patient is a former cigarette smoker. The patient has never used other types of tobacco. Sexual Orientation: The patient thinks of their sexual orientation as: Straight or Heterosexual HTN Assess for Elevated BP>=140/90: Repeat blood pressure:1014 136/63 Patient reported blood pressure Systolic BP 136 Diastolic BP 63 Td/Tdap Immunization: Td (adult) adsorbed, preservative free (Tenivac) Administered: TD (ADULT), 5 LF TETANUS TOXOID, PRESERVATIVE FREE, ADSORBED Date Administered: Jan 22, 2025 10:00 Broker In Charge: SANOFI PASTEUR Lot: [id number] Exp Date: Apr 20, 2025 [facility]: [id number] Admin Route/Site: INTRAMUSCULAR/LEFT DELTOID Dosage: 0.5mL Vaccine Information Statement(s): TD (TETANUS, DIPHTHERIA) VACCINE VIS May 23, 2021 ([facility]) Order By: Policy Administered By: Shad Yo Vet tolerated injection well. Vet advised of s/s of adverse reactions. No immediate reactions reported by vet or noted by this typewriter assembly and parts inspector. Vet was advised to remain in the facility for 15 minutes post injection and to report any reactions to staff immediately. Vet voiced understanding. Vaccine Information Sheet (VIS) was given to the patient/caregiver, education regarding adverse reactions was discussed, as well as barriers to learning, if any, were acknowledged. /chinyere/ SHAD YO LPN LPN Signed: 01/22/2025 10:30 JANIA YO [facility]
--- OUTSIDE RECORDS SUMMARY | 2025-01-22 07:06 | XMS_ITS | Continuity of Care Document ---
Author Name [facility] Organization [facility] Care Team Providers Care Brand Planner Name Role Phone [facility] Unavailable Unavailable Problems Combined list of problems from [facility] and [facility] facilities. It does not include entries that were removed or entered in error. Problem Status Onset Date Problem Type Date of Resolution Comments Source Aortic valve insufficiency Active Condition [facility] Atrial fibrillation Active Condition [facility] Benign hypertension Active Condition [facility] Exposure to potentially hazardous substance ([facility] [id number]) [facility] Hearing [facility] Condition [facility] Hyperlipidemia [facility] Arrhythmia Inactive Condition 04/02/2020 [facility] Diagnosis: ICD-10-CM I48.91 Unspecified atrial fibrillation Active Diagnosis [facility] Diagnosis: ICD-10-CM Z63.4 Disappearance and of family member Active Diagnosis [facility] Medications Combined list of outpatient medications from [facility] and [facility] facilities.Medications provided include 1) outpatient medications from the last 15 months, and 2) patient-reported medications. Medication Details Route Status Patient Instructions Prescription Expires Prescription Number Last Dispense Date Ordering Provider Order Date Order Qty Source APIXABAN 5MG TAB TAKE ONE TABLET BY MOUTH TWICE A DAY ORAL ACTIVE LOUIE ACEVEDO 2020 [facility] ATORVASTATI N [place] 40MG TAB TAKE ONE-HALF TABLET BY MOUTH DAILY ORAL ACTIVE FABIAN GARCIA 2016 [facility] FLECAINIDE ACETATE 50MG TAB TAKE ONE TABLET BY MOUTH TWICE A DAY ORAL ACTIVE JANICE AGUSTIN Q 2014 [facility] OMEPRAZOLE 20MG CAP,EC TAKE 1 CAPSULE BY MOUTH EVERY DAY 30 MINUTES BEFORE A MEAL ORAL ACTIVE FABIAN GARCIA 2016 [facility] Immunizations Combined list of available immunizations from the Department of Defense and [facility] facilities. Immunization Series Date Given Administered By Site Reaction Lot Number CVX Code Drug Cupola Melter Status Comments Source TD (ADULT), 5 LF TETANUS TOXOID, PRESERVATIVE FREE, ADSORBED 2024 Yusuf FREEDMAN AMY LEFT DELTO ID [id number] 113 complet ed [facility] [place], [facility] COVID-19 (PFIZER), MRNA, LNP-S, PF, [place]-SUCROSE, 30 MCG/0.3 ML (AGES 12+ YEARS) 7 2023 309 complet ed HISTORICA L INFORMATI ON - FROM OTHER REGISTRY, [facility] INFLUENZA, HIGH-DOSE, TRIVALENT, PF 2023 135 complet ed HISTORICA L INFORMATI ON - FROM OTHER REGISTRY, [facility] RSV, BIVALENT, PROTEIN SUBUNIT RSVPREF, DILUENT RECONSTITUTED , 0.5 ML, PF 1 2023 305 complet ed HISTORICA L INFORMATI ON - FROM OTHER REGISTRY, [facility] COVID-19 (MODERNA), MRNA, LNP-S, PF, 50 MCG/0.5 ML (AGES 12+ YEARS) 6 2022 312 complet ed HISTORICA L INFORMATI ON - FROM OTHER REGISTRY, [facility] INFLUENZA, HIGH-DOSE, QUADRIVALENT 8 2022 197 complet ed HISTORICA L INFORMATI ON - FROM OTHER REGISTRY, [facility] INFLUENZA, INJECTABLE, QUADRIVALENT, PRESERVATIVE FREE 7 2021 150 complet ed HISTORICA L INFORMATI ON - FROM OTHER REGISTRY, [facility] INFLUENZA, UNSPECIFIED FORMULATION 2021 88 complet ed HISTORICA L INFORMATI ON - FROM PATIENT'S RECALL, SENIOR DOSE [facility] COVID-19 (MODERNA), MRNA, LNP-S, BIVALENT, PF, 50 MCG/0.5 ML OR 25MCG/0.25 ML DOSE 5 2021 229 complet ed HISTORICA L INFORMATI ON - FROM OTHER REGISTRY, [place] [facility] COVID-19 (MODERNA), MRNA, LNP-S, PF, 100 MCG/0.5ML DOSE OR 50 MCG/0.25ML DOSE 2021 207 complet ed HISTORICA L INFORMATI ON - FROM PATIENT'S WRITTEN RECORD, Lot#: [id number] [place] [facility] PNEUMOCOCCAL CONJUGATE PCV20, POLYSACCHARID E [id number] CONJUGATE, ADJUVANT, PF 2021 216 complet ed [place] [facility] COVID-19 (MODERNA), MRNA, LNP-S, PF, 100 MCG/0.5ML DOSE OR 50 MCG/0.25ML DOSE 4 2021 207 complet ed HISTORICA L INFORMATI ON - FROM OTHER REGISTRY, [place] [facility] COVID-19 (MODERNA), MRNA, LNP-S, PF, 100 MCG/0.5ML DOSE OR 50 MCG/0.25ML DOSE 3 2020 207 complet ed HISTORICA L INFORMATI ON - FROM PATIENT'S WRITTEN RECORD, Lot#: [id number] [place] [facility] INFLUENZA, HIGH-DOSE, QUADRIVALENT 6 2020 197 complet ed HISTORICA L INFORMATI ON - FROM OTHER REGISTRY, [place] [facility] INFLUENZA, UNSPECIFIED FORMULATION 2020 88 complet ed [place] [facility] COVID-19 (MODERNA), MRNA, LNP-S, PF, 100 MCG/0.5ML DOSE OR 50 MCG/0.25ML DOSE 2 2020 207 complet ed HISTORICA L INFORMATI ON - FROM PATIENT'S WRITTEN RECORD, Lot#: [id number] CO [place] [facility] COVID-19 (MODERNA), MRNA, LNP-S, PF, 100 MCG/0.5 ML DOSE 1 2020 207 complet ed [facility] [facility] INFLUENZA, HIGH-DOSE, QUADRIVALENT 5 2019 197 complet ed HISTORICA L INFORMATI ON - FROM OTHER REGISTRY, [place] [facility] INFLUENZA, HIGH DOSE SEASONAL 4 2018 135 complet ed HISTORICA L INFORMATI ON - FROM OTHER REGISTRY, [facility] INFLUENZA, SEASONAL, INJECTABLE 2018 141 complet ed [facility] ZOSTER RECOMBINANT 2 2018 187 complet ed [facility] ZOSTER RECOMBINANT 1 2018 187 complet ed [facility] HEP A, ADULT 2017 52 complet ed HISTORICA L INFORMATI ON - FROM OTHER REGISTRY, [facility] HEP A, ADULT 2 2017 52 complet ed HISTORICA L INFORMATI ON - FROM OTHER REGISTRY, [facility] INFLUENZA, SEASONAL, INJECTABLE 2017 141 complet ed [facility] INFLUENZA, HIGH DOSE SEASONAL 3 2017 135 complet ed HISTORICA L INFORMATI ON - FROM OTHER REGISTRY, [facility] HEP A, ADULT 1 2017 52 complet ed HISTORICA L INFORMATI ON - FROM OTHER REGISTRY, [facility] INFLUENZA A & B (HISTORICAL) 2016 88 complet ed [facility] INFLUENZA, HIGH DOSE SEASONAL 2 2016 135 complet ed HISTORICA L INFORMATI ON - FROM OTHER REGISTRY, [facility] INFLUENZA A & B (HISTORICAL) 2015 88 complet ed [facility] INFLUENZA, HIGH DOSE SEASONAL 1 2015 135 complet ed HISTORICA L INFORMATI ON - FROM OTHER REGISTRY, [facility] PNEUMOCOCCAL CONJUGATE PCV 13 1 2015 133 complet ed HISTORICA L INFORMATI ON - FROM OTHER REGISTRY, [facility] PNEUMOCOCCAL CONJUGATE PCV 13 2015 133 complet ed outside [facility] INFLUENZA A & B (HISTORICAL) 2014 88 complet ed [facility] DTP 2013 01 complet ed [facility] TDAP (HISTORICAL) 2013 115 complet ed [facility] INFLUENZA A & B (HISTORICAL) 2013 88 complet ed [place] [facility] INFLUENZA A & B (HISTORICAL) 2012 88 complet ed UP TO DATE FOR THE FLU SEASON [place] [facility] INFLUENZA A & B (HISTORICAL) 2011 88 complet ed [facility] INFLUENZA A & B (HISTORICAL) 2010 88 complet ed [facility] [facility] INFLUENZA A & B (HISTORICAL) 2009 88 complet ed [facility] INFLUENZA A & B (HISTORICAL) 2008 88 complet ed [facility] [facility] PNEUMOCOCCAL, UNSPECIFIED FORMULATION 2008 109 complet ed [facility] INFLUENZA A & B (HISTORICAL) 2007 88 complet ed [facility] [facility] TD(ADULT) UNSPECIFIED FORMULATION 2007 139 complet ed Booster for Series, [facility] TETANUS TOXOID, UNSPECIFIED FORMULATION 2007 KARMEN VILLAFUERTE 112 complet ed [facility] [facility] INFLUENZA A & B (HISTORICAL) 2006 88 complet ed [facility] [facility] INFLUENZA A & B (HISTORICAL) 2005 88 complet ed [facility] INFLUENZA A & B (HISTORICAL) 2002 88 complet ed [facility] [facility] INFLUENZA, UNSPECIFIED FORMULATION 2001 88 complet ed no reaction [facility] [facility] TD(ADULT) UNSPECIFIED FORMULATION 1997 139 complet ed [place] [facility] Results Combined list of recent chemistry, hematology and other laboratory results from Department of Defense and Veterans Affairs, ranging from 15 months to all on record, depending upon the facility. Order Name Results Value Reference Range Date Interpretation Specimen Comments Source B12 VITAMIN COBALAMIN (VITAMIN B12) [MASS/VOLUM E] IN SERUM OR PLASMA 297 pg/mL 213 - 816 01/22 Specimen Type: PLASMA Comment: Estimated Glomerular Filtration Rate (eGFR) calculated using the 2020 Chronic Kidney Disease-Epi demiology (CKD-EPI) Collaborati on creatinine equation; units of measure are mL/min/1.73 m2. Results are only valid for adults (>=18 years) whose serum creatinine is in a steady state. eGFR calculation s are not valid for patients with acute kidney injury and for patients on dialysis. Creatinine- based estimates of kidney function may also be inaccurate in patients with reduced creatinine generation due to decreased muscle mass (e.g., malnutritio n, severe hypoalbumin emia, sarcopenia, chronic neuromuscul ar disease, amputations , severe heart failure or liver disease) and in patients with increased creatinine generation due to increased muscle mass (e.g., muscle builders, anabolic steroids) or increased dietary intake. As drug clearance is proportiona l to total GFR and not GFR indexed to body surface area (BSA), in individuals with a BSA substantial ly different than 1.73 m2, drug dosing should be based on the reported eGFR value de-indexed from BSA by multiplying by the individual' s BSA and dividing by 1.73. CKD is diagnosed based on abnormaliti es of kidney structure or function, present for >3 months, with implication s for health and disease. CKD is classified and staged based on cause, eGFR and albuminuria (quantified as urine albumin to creatinine ratio). An eGFR >60 mL/min/1.73 m2 in the absence of increased urine albumin excretion or structural abnormaliti es does not represent CKD. eGFR CKD Interpretat ion (mL/min/1.7 3 m2) stage >=90 G1 Normal 60-89 G2 Mild decrease 45-59 G3A Mild to moderate decrease 30-44 G3B Moderate to severe decrease 15-29 G4 Severe decrease <15 G5 Kidney failure Vitamin B12 test may not yield results when protein level of sample is too elevated. Ordering Provider: NOY ACEVEDO Report Released Date/Time: Jan 22, 2025 10:50 AM Reporting Lab: [facility] [address] [phone] Performing Lab: [facility] [address] [address] [facility] PANEL 2 PROTEIN [MASS/VOLUM E] IN SERUM OR PLASMA 7.1 g/dL 6.4 - 8.3 01/22 Specimen Type: PLASMA Comment: Estimated Glomerular Filtration Rate (eGFR) calculated using the 2020 Chronic Kidney Disease-Epi demiology (CKD-EPI) Collaborati on creatinine equation; units of measure are mL/min/1.73 m2. Results are only valid for adults (>=18 years) whose serum creatinine is in a steady state. eGFR calculation s are not valid for patients with acute kidney injury and for patients on dialysis. Creatinine- based estimates of kidney function may also be inaccurate in patients with reduced creatinine generation due to decreased muscle mass (e.g., malnutritio n, severe hypoalbumin emia, sarcopenia, chronic neuromuscul ar disease, amputations , severe heart failure or liver disease) and in patients with increased creatinine generation due to increased muscle mass (e.g., muscle builders, anabolic steroids) or increased dietary intake. As drug clearance is proportiona l to total GFR and not GFR indexed to body surface area (BSA), in individuals with a BSA substantial ly different than 1.73 m2, drug dosing should be based on the reported eGFR value de-indexed from BSA by multiplying by the individual' s BSA and dividing by 1.73. CKD is diagnosed based on abnormaliti es of kidney structure or function, present for >3 months, with implication s for health and disease. CKD is classified and staged based on cause, eGFR and albuminuria (quantified as urine albumin to creatinine ratio). An eGFR >60 mL/min/1.73 m2 in the absence of increased urine albumin excretion or structural abnormaliti es does not represent CKD. eGFR CKD Interpretat ion (mL/min/1.7 3 m2) stage >=90 G1 Normal 60-89 G2 Mild decrease 45-59 G3A Mild to moderate decrease 30-44 G3B Moderate to severe decrease 15-29 G4 Severe decrease <15 G5 Kidney failure Vitamin B12 test may not yield results when protein level of sample is too elevated. Ordering Provider: NOY ACEVEDO Report Released Date/Time: Jan 22, 2025 10:50 AM Reporting Lab: [facility] [address] [phone] Performing Lab: [facility] [address] [place] [phone] [facility] PANEL 2 ALBUMIN [MASS/VOLUM E] IN SERUM OR PLASMA 4.4 g/dL 3.5 - 5.2 01/22 Specimen Type: PLASMA Comment: Estimated Glomerular Filtration Rate (eGFR) calculated using the 2020 Chronic Kidney Disease-Epi demiology (CKD-EPI) Collaborati on creatinine equation; units of measure are mL/min/1.73 m2. Results are only valid for adults (>=18 years) whose serum creatinine is in a steady state. eGFR calculation s are not valid for patients with acute kidney injury and for patients on dialysis. Creatinine- based estimates of kidney function may also be inaccurate in patients with reduced creatinine generation due to decreased muscle mass (e.g., malnutritio n, severe hypoalbumin emia, sarcopenia, chronic neuromuscul ar disease, amputations , severe heart failure or liver disease) and in patients with increased creatinine generation due to increased muscle mass (e.g., muscle builders, anabolic steroids) or increased dietary intake. As drug clearance is proportiona l to total GFR and not GFR indexed to body surface area (BSA), in individuals with a BSA substantial ly different than 1.73 m2, drug dosing should be based on the reported eGFR value de-indexed from BSA by multiplying by the individual' s BSA and dividing by 1.73. CKD is diagnosed based on abnormaliti es of kidney structure or function, present for >3 months, with implication s for health and disease. CKD is classified and staged based on cause, eGFR and albuminuria (quantified as urine albumin to creatinine ratio). An eGFR >60 mL/min/1.73 m2 in the absence of increased urine albumin excretion or structural abnormaliti es does not represent CKD. eGFR CKD Interpretat ion (mL/min/1.7 3 m2) stage >=90 G1 Normal 60-89 G2 Mild decrease 45-59 G3A Mild to moderate decrease 30-44 G3B Moderate to severe decrease 15-29 G4 Severe decrease <15 G5 Kidney failure Vitamin B12 test may not yield results when protein level of sample is too elevated. Ordering Provider: NOY ACEVEDO Report Released Date/Time: Jan 22, 2025 10:50 AM Reporting Lab: [facility] [address] [facility] [phone] Performing Lab: [facility] [address] [facility] [phone] [facility] PANEL 2 BILIRUBIN.T OTAL [MASS/VOLUM E] IN SERUM OR PLASMA 2.0 mg/dL 0.2 - 1.2 01/22 H Specimen Type: PLASMA Comment: Estimated Glomerular Filtration Rate (eGFR) calculated using the 2020 Chronic Kidney Disease-Epi demiology (CKD-EPI) Collaborati on creatinine equation; units of measure are mL/min/1.73 m2. Results are only valid for adults (>=18 years) whose serum creatinine is in a steady state. eGFR calculation s are not valid for patients with acute kidney injury and for patients on dialysis. Creatinine- based estimates of kidney function may also be inaccurate in patients with reduced creatinine generation due to decreased muscle mass (e.g., malnutritio n, severe hypoalbumin emia, sarcopenia, chronic neuromuscul ar disease, amputations , severe heart failure or liver disease) and in patients with increased creatinine generation due to increased muscle mass (e.g., muscle builders, anabolic steroids) or increased dietary intake. As drug clearance is proportiona l to total GFR and not GFR indexed to body surface area (BSA), in individuals with a BSA substantial ly different than 1.73 m2, drug dosing should be based on the reported eGFR value de-indexed from BSA by multiplying by the individual' s BSA and dividing by 1.73. CKD is diagnosed based on abnormaliti es of kidney structure or function, present for >3 months, with implication s for health and disease. CKD is classified and staged based on cause, eGFR and albuminuria (quantified as urine albumin to creatinine ratio). An eGFR >60 mL/min/1.73 m2 in the absence of increased urine albumin excretion or structural abnormaliti es does not represent CKD. eGFR CKD Interpretat ion (mL/min/1.7 3 m2) stage >=90 G1 Normal 60-89 G2 Mild decrease 45-59 G3A Mild to moderate decrease 30-44 G3B Moderate to severe decrease 15-29 G4 Severe decrease <15 G5 Kidney failure Vitamin B12 test may not yield results when protein level of sample is too elevated. Ordering Provider: NOY ACEVEDO Report Released Date/Time: Jan 22, 2025 10:50 AM Reporting Lab: [facility] [address] [facility] [phone] Performing Lab: [facility] [address] [place] [phone] [facility] PANEL 2 ASPARTATE AMINOTRANSF ERASE [ENZYMATIC ACTIVITY/VO LUME] IN SERUM OR PLASMA 28 U/L 5 - 34 01/22 Specimen Type: PLASMA Comment: Estimated Glomerular Filtration Rate (eGFR) calculated using the 2020 Chronic Kidney Disease-Epi demiology (CKD-EPI) Collaborati on creatinine equation; units of measure are mL/min/1.73 m2. Results are only valid for adults (>=18 years) whose serum creatinine is in a steady state. eGFR calculation s are not valid for patients with acute kidney injury and for patients on dialysis. Creatinine- based estimates of kidney function may also be inaccurate in patients with reduced creatinine generation due to decreased muscle mass (e.g., malnutritio n, severe hypoalbumin emia, sarcopenia, chronic neuromuscul ar disease, amputations , severe heart failure or liver disease) and in patients with increased creatinine generation due to increased muscle mass (e.g., muscle builders, anabolic steroids) or increased dietary intake. As drug clearance is proportiona l to total GFR and not GFR indexed to body surface area (BSA), in individuals with a BSA substantial ly different than 1.73 m2, drug dosing should be based on the reported eGFR value de-indexed from BSA by multiplying by the individual' s BSA and dividing by 1.73. CKD is diagnosed based on abnormaliti es of kidney structure or function, present for >3 months, with implication s for health and disease. CKD is classified and staged based on cause, eGFR and albuminuria (quantified as urine albumin to creatinine ratio). An eGFR >60 mL/min/1.73 m2 in the absence of increased urine albumin excretion or structural abnormaliti es does not represent CKD. eGFR CKD Interpretat ion (mL/min/1.7 3 m2) stage >=90 G1 Normal 60-89 G2 Mild decrease 45-59 G3A Mild to moderate decrease 30-44 G3B Moderate to severe decrease 15-29 G4 Severe decrease <15 G5 Kidney failure Vitamin B12 test may not yield results when protein level of sample is too elevated. Ordering Provider: NOY ACEVEDO Report Released Date/Time: Jan 22, 2025 10:50 AM Reporting Lab: [facility] [address] [phone] Performing Lab: [facility] [address] [phone] [facility] PANEL 2 ALANINE AMINOTRANSF ERASE [ENZYMATIC ACTIVITY/VO LUME] IN SERUM OR PLASMA 19 U/L 0 - 55 01/22 Specimen Type: PLASMA Comment: Estimated Glomerular Filtration Rate (eGFR) calculated using the 2020 Chronic Kidney Disease-Epi demiology (CKD-EPI) Collaborati on creatinine equation; units of measure are mL/min/1.73 m2. Results are only valid for adults (>=18 years) whose serum creatinine is in a steady state. eGFR calculation s are not valid for patients with acute kidney injury and for patients on dialysis. Creatinine- based estimates of kidney function may also be inaccurate in patients with reduced creatinine generation due to decreased muscle mass (e.g., malnutritio n, severe hypoalbumin emia, sarcopenia, chronic neuromuscul ar disease, amputations , severe heart failure or liver disease) and in patients with increased creatinine generation due to increased muscle mass (e.g., muscle builders, anabolic steroids) or increased dietary intake. As drug clearance is proportiona l to total GFR and not GFR indexed to body surface area (BSA), in individuals with a BSA substantial ly different than 1.73 m2, drug dosing should be based on the reported eGFR value de-indexed from BSA by multiplying by the individual' s BSA and dividing by 1.73. CKD is diagnosed based on abnormaliti es of kidney structure or function, present for >3 months, with implication s for health and disease. CKD is classified and staged based on cause, eGFR and albuminuria (quantified as urine albumin to creatinine ratio). An eGFR >60 mL/min/1.73 m2 in the absence of increased urine albumin excretion or structural abnormaliti es does not represent CKD. eGFR CKD Interpretat ion (mL/min/1.7 3 m2) stage >=90 G1 Normal 60-89 G2 Mild decrease 45-59 G3A Mild to moderate decrease 30-44 G3B Moderate to severe decrease 15-29 G4 Severe decrease <15 G5 Kidney failure Vitamin B12 test may not yield results when protein level of sample is too elevated. Ordering Provider: NOY ACEVEDO Report Released Date/Time: Jan 22, 2025 10:50 AM Reporting Lab: [facility] [address] [phone] Performing Lab: [facility] [address] [phone] [facility] PANEL 2 ALKALINE PHOSPHATASE [ENZYMATIC ACTIVITY/VO LUME] IN SERUM OR PLASMA 63 U/L 40 - 150 01/22 Specimen Type: PLASMA Comment: Estimated Glomerular Filtration Rate (eGFR) calculated using the 2020 Chronic Kidney Disease-Epi demiology (CKD-EPI) Collaborati on creatinine equation; units of measure are mL/min/1.73 m2. Results are only valid for adults (>=18 years) whose serum creatinine is in a steady state. eGFR calculation s are not valid for patients with acute kidney injury and for patients on dialysis. Creatinine- based estimates of kidney function may also be inaccurate in patients with reduced creatinine generation due to decreased muscle mass (e.g., malnutritio n, severe hypoalbumin emia, sarcopenia, chronic neuromuscul ar disease, amputations , severe heart failure or liver disease) and in patients with increased creatinine generation due to increased muscle mass (e.g., muscle builders, anabolic steroids) or increased dietary intake. As drug clearance is proportiona l to total GFR and not GFR indexed to body surface area (BSA), in individuals with a BSA substantial ly different than 1.73 m2, drug dosing should be based on the reported eGFR value de-indexed from BSA by multiplying by the individual' s BSA and dividing by 1.73. CKD is diagnosed based on abnormaliti es of kidney structure or function, present for >3 months, with implication s for health and disease. CKD is classified and staged based on cause, eGFR and albuminuria (quantified as urine albumin to creatinine ratio). An eGFR >60 mL/min/1.73 m2 in the absence of increased urine albumin excretion or structural abnormaliti es does not represent CKD. eGFR CKD Interpretat ion (mL/min/1.7 3 m2) stage >=90 G1 Normal 60-89 G2 Mild decrease 45-59 G3A Mild to moderate decrease 30-44 G3B Moderate to severe decrease 15-29 G4 Severe decrease <15 G5 Kidney failure Vitamin B12 test may not yield results when protein level of sample is too elevated. Ordering Provider: NOY ACEVEDO Report Released Date/Time: Jan 22, 2025 10:50 AM Reporting Lab: [facility] [address] [address] Performing Lab: [facility] [address] [address] [facility] PANEL 2 BILIRUBIN.D IRECT [MASS/VOLUM E] IN SERUM OR PLASMA 0.5 mg/dL 0.0 - 0.5 01/22 Specimen Type: PLASMA Comment: Estimated Glomerular Filtration Rate (eGFR) calculated using the 2020 Chronic Kidney Disease-Epi demiology (CKD-EPI) Collaborati on creatinine equation; units of measure are mL/min/1.73 m2. Results are only valid for adults (>=18 years) whose serum creatinine is in a steady state. eGFR calculation s are not valid for patients with acute kidney injury and for patients on dialysis. Creatinine- based estimates of kidney function may also be inaccurate in patients with reduced creatinine generation due to decreased muscle mass (e.g., malnutritio n, severe hypoalbumin emia, sarcopenia, chronic neuromuscul ar disease, amputations , severe heart failure or liver disease) and in patients with increased creatinine generation due to increased muscle mass (e.g., muscle builders, anabolic steroids) or increased dietary intake. As drug clearance is proportiona l to total GFR and not GFR indexed to body surface area (BSA), in individuals with a BSA substantial ly different than 1.73 m2, drug dosing should be based on the reported eGFR value de-indexed from BSA by multiplying by the individual' s BSA and dividing by 1.73. CKD is diagnosed based on abnormaliti es of kidney structure or function, present for >3 months, with implication s for health and disease. CKD is classified and staged based on cause, eGFR and albuminuria (quantified as urine albumin to creatinine ratio). An eGFR >60 mL/min/1.73 m2 in the absence of increased urine albumin excretion or structural abnormaliti es does not represent CKD. eGFR CKD Interpretat ion (mL/min/1.7 3 m2) stage >=90 G1 Normal 60-89 G2 Mild decrease 45-59 G3A Mild to moderate decrease 30-44 G3B Moderate to severe decrease 15-29 G4 Severe decrease <15 G5 Kidney failure Vitamin B12 test may not yield results when protein level of sample is too elevated. Ordering Provider: NOY ACEVEDO Report Released Date/Time: Jan 22, 2025 10:50 AM Reporting Lab: [facility] [address] [address] Performing Lab: [facility] [address] [address] [facility] PANEL 1 CREATININE [MASS/VOLUM E] IN SERUM OR PLASMA 0.82 mg/dL 0.72 - 1.25 01/22 Specimen Type: PLASMA Comment: Estimated Glomerular Filtration Rate (eGFR) calculated using the 2020 Chronic Kidney Disease-Epi demiology (CKD-EPI) Collaborati on creatinine equation; units of measure are mL/min/1.73 m2. Results are only valid for adults (>=18 years) whose serum creatinine is in a steady state. eGFR calculation s are not valid for patients with acute kidney injury and for patients on dialysis. Creatinine- based estimates of kidney function may also be inaccurate in patients with reduced creatinine generation due to decreased muscle mass (e.g., malnutritio n, severe hypoalbumin emia, sarcopenia, chronic neuromuscul ar disease, amputations , severe heart failure or liver disease) and in patients with increased creatinine generation due to increased muscle mass (e.g., muscle builders, anabolic steroids) or increased dietary intake. As drug clearance is proportiona l to total GFR and not GFR indexed to body surface area (BSA), in individuals with a BSA substantial ly different than 1.73 m2, drug dosing should be based on the reported eGFR value de-indexed from BSA by multiplying by the individual' s BSA and dividing by 1.73. CKD is diagnosed based on abnormaliti es of kidney structure or function, present for >3 months, with implication s for health and disease. CKD is classified and staged based on cause, eGFR and albuminuria (quantified as urine albumin to creatinine ratio). An eGFR >60 mL/min/1.73 m2 in the absence of increased urine albumin excretion or structural abnormaliti es does not represent CKD. eGFR CKD Interpretat ion (mL/min/1.7 3 m2) stage >=90 G1 Normal 60-89 G2 Mild decrease 45-59 G3A Mild to moderate decrease 30-44 G3B Moderate to severe decrease 15-29 G4 Severe decrease <15 G5 Kidney failure Vitamin B12 test may not yield results when protein level of sample is too elevated. Ordering Provider: NOY ACEVEDO Report Released Date/Time: Jan 22, 2025 10:50 AM Reporting Lab: [facility] [address] [address] Performing Lab: [facility] [address] [address] [facility] PANEL 1 UREA NITROGEN [MASS/VOLUM E] IN SERUM OR PLASMA 17 mg/dL 9 - 25 01/22 Specimen Type: PLASMA Comment: Estimated Glomerular Filtration Rate (eGFR) calculated using the 2020 Chronic Kidney Disease-Epi demiology (CKD-EPI) Collaborati on creatinine equation; units of measure are mL/min/1.73 m2. Results are only valid for adults (>=18 years) whose serum creatinine is in a steady state. eGFR calculation s are not valid for patients with acute kidney injury and for patients on dialysis. Creatinine- based estimates of kidney function may also be inaccurate in patients with reduced creatinine generation due to decreased muscle mass (e.g., malnutritio n, severe hypoalbumin emia, sarcopenia, chronic neuromuscul ar disease, amputations , severe heart failure or liver disease) and in patients with increased creatinine generation due to increased muscle mass (e.g., muscle builders, anabolic steroids) or increased dietary intake. As drug clearance is proportiona l to total GFR and not GFR indexed to body surface area (BSA), in individuals with a BSA substantial ly different than 1.73 m2, drug dosing should be based on the reported eGFR value de-indexed from BSA by multiplying by the individual' s BSA and dividing by 1.73. CKD is diagnosed based on abnormaliti es of kidney structure or function, present for >3 months, with implication s for health and disease. CKD is classified and staged based on cause, eGFR and albuminuria (quantified as urine albumin to creatinine ratio). An eGFR >60 mL/min/1.73 m2 in the absence of increased urine albumin excretion or structural abnormaliti es does not represent CKD. eGFR CKD Interpretat ion (mL/min/1.7 3 m2) stage >=90 G1 Normal 60-89 G2 Mild decrease 45-59 G3A Mild to moderate decrease 30-44 G3B Moderate to severe decrease 15-29 G4 Severe decrease <15 G5 Kidney failure Vitamin B12 test may not yield results when protein level of sample is too elevated. Ordering Provider: NOY ACEVEDO Report Released Date/Time: Jan 22, 2025 10:50 AM Reporting Lab: [facility] [address] [address] Performing Lab: [facility] [address] [address] [facility] PANEL 1 GLUCOSE [MASS/VOLUM E] IN SERUM OR PLASMA 91 mg/dL 74 - 100 01/22 Specimen Type: PLASMA Comment: Estimated Glomerular Filtration Rate (eGFR) calculated using the 2020 Chronic Kidney Disease-Epi demiology (CKD-EPI) Collaborati on creatinine equation; units of measure are mL/min/1.73 m2. Results are only valid for adults (>=18 years) whose serum creatinine is in a steady state. eGFR calculation s are not valid for patients with acute kidney injury and for patients on dialysis. Creatinine- based estimates of kidney function may also be inaccurate in patients with reduced creatinine generation due to decreased muscle mass (e.g., malnutritio n, severe hypoalbumin emia, sarcopenia, chronic neuromuscul ar disease, amputations , severe heart failure or liver disease) and in patients with increased creatinine generation due to increased muscle mass (e.g., muscle builders, anabolic steroids) or increased dietary intake. As drug clearance is proportiona l to total GFR and not GFR indexed to body surface area (BSA), in individuals with a BSA substantial ly different than 1.73 m2, drug dosing should be based on the reported eGFR value de-indexed from BSA by multiplying by the individual' s BSA and dividing by 1.73. CKD is diagnosed based on abnormaliti es of kidney structure or function, present for >3 months, with implication s for health and disease. CKD is classified and staged based on cause, eGFR and albuminuria (quantified as urine albumin to creatinine ratio). An eGFR >60 mL/min/1.73 m2 in the absence of increased urine albumin excretion or structural abnormaliti es does not represent CKD. eGFR CKD Interpretat ion (mL/min/1.7 3 m2) stage >=90 G1 Normal 60-89 G2 Mild decrease 45-59 G3A Mild to moderate decrease 30-44 G3B Moderate to severe decrease 15-29 G4 Severe decrease <15 G5 Kidney failure Vitamin B12 test may not yield results when protein level of sample is too elevated. Ordering Provider: NOY ACEVEDO Report Released Date/Time: Jan 22, 2025 10:50 AM Reporting Lab: [facility] [address] [facility] [phone] Performing Lab: [facility] [address] [facility] [address] [facility] PANEL 1 SODIUM [MOLES/VOLU ME] IN SERUM OR PLASMA 142 mmol/L 136 - 145 01/22 Specimen Type: PLASMA Comment: Estimated Glomerular Filtration Rate (eGFR) calculated using the 2020 Chronic Kidney Disease-Epi demiology (CKD-EPI) Collaborati on creatinine equation; units of measure are mL/min/1.73 m2. Results are only valid for adults (>=18 years) whose serum creatinine is in a steady state. eGFR calculation s are not valid for patients with acute kidney injury and for patients on dialysis. Creatinine- based estimates of kidney function may also be inaccurate in patients with reduced creatinine generation due to decreased muscle mass (e.g., malnutritio n, severe hypoalbumin emia, sarcopenia, chronic neuromuscul ar disease, amputations , severe heart failure or liver disease) and in patients with increased creatinine generation due to increased muscle mass (e.g., muscle builders, anabolic steroids) or increased dietary intake. As drug clearance is proportiona l to total GFR and not GFR indexed to body surface area (BSA), in individuals with a BSA substantial ly different than 1.73 m2, drug dosing should be based on the reported eGFR value de-indexed from BSA by multiplying by the individual' s BSA and dividing by 1.73. CKD is diagnosed based on abnormaliti es of kidney structure or function, present for >3 months, with implication s for health and disease. CKD is classified and staged based on cause, eGFR and albuminuria (quantified as urine albumin to creatinine ratio). An eGFR >60 mL/min/1.73 m2 in the absence of increased urine albumin excretion or structural abnormaliti es does not represent CKD. eGFR CKD Interpretat ion (mL/min/1.7 3 m2) stage >=90 G1 Normal 60-89 G2 Mild decrease 45-59 G3A Mild to moderate decrease 30-44 G3B Moderate to severe decrease 15-29 G4 Severe decrease <15 G5 Kidney failure Vitamin B12 test may not yield results when protein level of sample is too elevated. Ordering Provider: NOY ACEVEDO Report Released Date/Time: Jan 22, 2025 10:50 AM Reporting Lab: [facility] [address] [facility] [address] Performing Lab: [facility] [address] [facility] PANEL 1 POTASSIUM [MOLES/VOLU ME] IN SERUM OR PLASMA 4.0 mmol/L 3.5 - 5.1 01/22 Specimen Type: PLASMA Comment: Estimated Glomerular Filtration Rate (eGFR) calculated using the 2020 Chronic Kidney Disease-Epi demiology (CKD-EPI) Collaborati on creatinine equation; units of measure are mL/min/1.73 m2. Results are only valid for adults (>=18 years) whose serum creatinine is in a steady state. eGFR calculation s are not valid for patients with acute kidney injury and for patients on dialysis. Creatinine- based estimates of kidney function may also be inaccurate in patients with reduced creatinine generation due to decreased muscle mass (e.g., malnutritio n, severe hypoalbumin emia, sarcopenia, chronic neuromuscul ar disease, amputations , severe heart failure or liver disease) and in patients with increased creatinine generation due to increased muscle mass (e.g., muscle builders, anabolic steroids) or increased dietary intake. As drug clearance is proportiona l to total GFR and not GFR indexed to body surface area (BSA), in individuals with a BSA substantial ly different than 1.73 m2, drug dosing should be based on the reported eGFR value de-indexed from BSA by multiplying by the individual' s BSA and dividing by 1.73. CKD is diagnosed based on abnormaliti es of kidney structure or function, present for >3 months, with implication s for health and disease. CKD is classified and staged based on cause, eGFR and albuminuria (quantified as urine albumin to creatinine ratio). An eGFR >60 mL/min/1.73 m2 in the absence of increased urine albumin excretion or structural abnormaliti es does not represent CKD. eGFR CKD Interpretat ion (mL/min/1.7 3 m2) stage >=90 G1 Normal 60-89 G2 Mild decrease 45-59 G3A Mild to moderate decrease 30-44 G3B Moderate to severe decrease 15-29 G4 Severe decrease <15 G5 Kidney failure Vitamin B12 test may not yield results when protein level of sample is too elevated. Ordering Provider: NOY ACEVEDO Report Released Date/Time: Jan 22, 2025 10:50 AM Reporting [facility] [address] Performing Lab: [address] [address] [facility] PANEL 1 CHLORIDE [MOLES/VOLU ME] IN SERUM OR PLASMA 106 mmol/L 98 - 107 01/22 Specimen Type: PLASMA Comment: Estimated Glomerular Filtration Rate (eGFR) calculated using the 2020 Chronic Kidney Disease-Epi demiology (CKD-EPI) Collaborati on creatinine equation; units of measure are mL/min/1.73 m2. Results are only valid for adults (>=18 years) whose serum creatinine is in a steady state. eGFR calculation s are not valid for patients with acute kidney injury and for patients on dialysis. Creatinine- based estimates of kidney function may also be inaccurate in patients with reduced creatinine generation due to decreased muscle mass (e.g., malnutritio n, severe hypoalbumin emia, sarcopenia, chronic neuromuscul ar disease, amputations , severe heart failure or liver disease) and in patients with increased creatinine generation due to increased muscle mass (e.g., muscle builders, anabolic steroids) or increased dietary intake. As drug clearance is proportiona l to total GFR and not GFR indexed to body surface area (BSA), in individuals with a BSA substantial ly different than 1.73 m2, drug dosing should be based on the reported eGFR value de-indexed from BSA by multiplying by the individual' s BSA and dividing by 1.73. CKD is diagnosed based on abnormaliti es of kidney structure or function, present for >3 months, with implication s for health and disease. CKD is classified and staged based on cause, eGFR and albuminuria (quantified as urine albumin to creatinine ratio). An eGFR >60 mL/min/1.73 m2 in the absence of increased urine albumin excretion or structural abnormaliti es does not represent CKD. eGFR CKD Interpretat ion (mL/min/1.7 3 m2) stage >=90 G1 Normal 60-89 G2 Mild decrease 45-59 G3A Mild to moderate decrease 30-44 G3B Moderate to severe decrease 15-29 G4 Severe decrease <15 G5 Kidney failure Vitamin B12 test may not yield results when protein level of sample is too elevated. Ordering Provider: NOY ACEVEDO Report Released Date/Time: Jan 22, 2025 10:50 AM Reporting Lab: [facility] [address] [address] Performing Lab: [facility] [address] [address] [facility] PANEL 1 CARBON DIOXIDE, TOTAL [MOLES/VOLU ME] IN SERUM OR PLASMA 27 mmol/L 01/22 Specimen Type: PLASMA Comment: Estimated Glomerular Filtration Rate (eGFR) calculated using the 2020 Chronic Kidney Disease-Epi demiology (CKD-EPI) Collaborati on creatinine equation; units of measure are mL/min/1.73 m2. Results are only valid for adults (>=18 years) whose serum creatinine is in a steady state. eGFR calculation s are not valid for patients with acute kidney injury and for patients on dialysis. Creatinine- based estimates of kidney function may also be inaccurate in patients with reduced creatinine generation due to decreased muscle mass (e.g., malnutritio n, severe hypoalbumin emia, sarcopenia, chronic neuromuscul ar disease, amputations , severe heart failure or liver disease) and in patients with increased creatinine generation due to increased muscle mass (e.g., muscle builders, anabolic steroids) or increased dietary intake. As drug clearance is proportiona l to total GFR and not GFR indexed to body surface area (BSA), in individuals with a BSA substantial ly different than 1.73 m2, drug dosing should be based on the reported eGFR value de-indexed from BSA by multiplying by the individual' s BSA and dividing by 1.73. CKD is diagnosed based on abnormaliti es of kidney structure or function, present for >3 months, with implication s for health and disease. CKD is classified and staged based on cause, eGFR and albuminuria (quantified as urine albumin to creatinine ratio). An eGFR >60 mL/min/1.73 m2 in the absence of increased urine albumin excretion or structural abnormaliti es does not represent CKD. eGFR CKD Interpretat ion (mL/min/1.7 3 m2) stage >=90 G1 Normal 60-89 G2 Mild decrease 45-59 G3A Mild to moderate decrease 30-44 G3B Moderate to severe decrease 15-29 G4 Severe decrease <15 G5 Kidney failure Vitamin B12 test may not yield results when protein level of sample is too elevated. Ordering Provider: NOY ACEVEDO Report Released Date/Time: Jan 22, 2025 10:50 AM Reporting Lab: [facility] [address] [address] Performing Lab: [facility] [address] [address] [facility] PANEL 1 CALCIUM [MASS/VOLUM E] IN SERUM OR PLASMA 9.6 mg/dL 8.4 - 10.2 01/22 Specimen Type: PLASMA Comment: Estimated Glomerular Filtration Rate (eGFR) calculated using the 2020 Chronic Kidney Disease-Epi demiology (CKD-EPI) Collaborati on creatinine equation; units of measure are mL/min/1.73 m2. Results are only valid for adults (>=18 years) whose serum creatinine is in a steady state. eGFR calculation s are not valid for patients with acute kidney injury and for patients on dialysis. Creatinine- based estimates of kidney function may also be inaccurate in patients with reduced creatinine generation due to decreased muscle mass (e.g., malnutritio n, severe hypoalbumin emia, sarcopenia, chronic neuromuscul ar disease, amputations , severe heart failure or liver disease) and in patients with increased creatinine generation due to increased muscle mass (e.g., muscle builders, anabolic steroids) or increased dietary intake. As drug clearance is proportiona l to total GFR and not GFR indexed to body surface area (BSA), in individuals with a BSA substantial ly different than 1.73 m2, drug dosing should be based on the reported eGFR value de-indexed from BSA by multiplying by the individual' s BSA and dividing by 1.73. CKD is diagnosed based on abnormaliti es of kidney structure or function, present for >3 months, with implication s for health and disease. CKD is classified and staged based on cause, eGFR and albuminuria (quantified as urine albumin to creatinine ratio). An eGFR >60 mL/min/1.73 m2 in the absence of increased urine albumin excretion or structural abnormaliti es does not represent CKD. eGFR CKD Interpretat ion (mL/min/1.7 3 m2) stage >=90 G1 Normal 60-89 G2 Mild decrease 45-59 G3A Mild to moderate decrease 30-44 G3B Moderate to severe decrease 15-29 G4 Severe decrease <15 G5 Kidney failure Vitamin B12 test may not yield results when protein level of sample is too elevated. Ordering Provider: NOY ACEVEDO Report Released Date/Time: Jan 22, 2025 10:50 AM Reporting Lab: [facility] [address] [address] Performing Lab: [facility] [address] [address] [facility] PANEL 1 ANION GAP 3 IN SERUM OR PLASMA 9 meq/L 3 - 19 01/22 Specimen Type: PLASMA Comment: Estimated Glomerular Filtration Rate (eGFR) calculated using the 2020 Chronic Kidney Disease-Epi demiology (CKD-EPI) Collaborati on creatinine equation; units of measure are mL/min/1.73 m2. Results are only valid for adults (>=18 years) whose serum creatinine is in a steady state. eGFR calculation s are not valid for patients with acute kidney injury and for patients on dialysis. Creatinine- based estimates of kidney function may also be inaccurate in patients with reduced creatinine generation due to decreased muscle mass (e.g., malnutritio n, severe hypoalbumin emia, sarcopenia, chronic neuromuscul ar disease, amputations , severe heart failure or liver disease) and in patients with increased creatinine generation due to increased muscle mass (e.g., muscle builders, anabolic steroids) or increased dietary intake. As drug clearance is proportiona l to total GFR and not GFR indexed to body surface area (BSA), in individuals with a BSA substantial ly different than 1.73 m2, drug dosing should be based on the reported eGFR value de-indexed from BSA by multiplying by the individual' s BSA and dividing by 1.73. CKD is diagnosed based on abnormaliti es of kidney structure or function, present for >3 months, with implication s for health and disease. CKD is classified and staged based on cause, eGFR and albuminuria (quantified as urine albumin to creatinine ratio). An eGFR >60 mL/min/1.73 m2 in the absence of increased urine albumin excretion or structural abnormaliti es does not represent CKD. eGFR CKD Interpretat ion (mL/min/1.7 3 m2) stage >=90 G1 Normal 60-89 G2 Mild decrease 45-59 G3A Mild to moderate decrease 30-44 G3B Moderate to severe decrease 15-29 G4 Severe decrease <15 G5 Kidney failure Vitamin B12 test may not yield results when protein level of sample is too elevated. Ordering Provider: NOY ACEVEDO Report Released Date/Time: Jan 22, 2025 10:50 AM Reporting Lab: [facility] [address] [address] Performing Lab: [facility] [address] [address] [facility] PANEL 1 GLOMERULAR FILTRATION RATE/1.73 SQ M.PREDICTED [VOLUME RATE/AREA] IN SERUM, PLASMA OR BLOOD BY CREATININE- BASED FORMULA (CKD-EPI 2020) 88 01/22 Specimen Type: PLASMA Comment: Estimated Glomerular Filtration Rate (eGFR) calculated using the 2020 Chronic Kidney Disease-Epi demiology (CKD-EPI) Collaborati on creatinine equation; units of measure are mL/min/1.73 m2. Results are only valid for adults (>=18 years) whose serum creatinine is in a steady state. eGFR calculation s are not valid for patients with acute kidney injury and for patients on dialysis. Creatinine- based estimates of kidney function may also be inaccurate in patients with reduced creatinine generation due to decreased muscle mass (e.g., malnutritio n, severe hypoalbumin emia, sarcopenia, chronic neuromuscul ar disease, amputations , severe heart failure or liver disease) and in patients with increased creatinine generation due to increased muscle mass (e.g., muscle builders, anabolic steroids) or increased dietary intake. As drug clearance is proportiona l to total GFR and not GFR indexed to body surface area (BSA), in individuals with a BSA substantial ly different than 1.73 m2, drug dosing should be based on the reported eGFR value de-indexed from BSA by multiplying by the individual' s BSA and dividing by 1.73. CKD is diagnosed based on abnormaliti es of kidney structure or function, present for >3 months, with implication s for health and disease. CKD is classified and staged based on cause, eGFR and albuminuria (quantified as urine albumin to creatinine ratio). An eGFR >60 mL/min/1.73 m2 in the absence of increased urine albumin excretion or structural abnormaliti es does not represent CKD. eGFR CKD Interpretat ion (mL/min/1.7 3 m2) stage >=90 G1 Normal 60-89 G2 Mild decrease 45-59 G3A Mild to moderate decrease 30-44 G3B Moderate to severe decrease 15-29 G4 Severe decrease <15 G5 Kidney failure Vitamin B12 test may not yield results when protein level of sample is too elevated. Ordering Provider: NOY ACEVEDO Report Released Date/Time: Jan 22, 2025 10:50 AM Reporting Lab: [facility] [address] [address] Performing Lab: [facility] [address] [address] [facility] [address] [facility] [address] 25-HYDROXYV ITAMIN D3 [MASS/VOLUM E] IN SERUM OR PLASMA 22.8 ng/mL 20.0 - 50.0 01/22 Specimen Type: SERUM Comment: The National Institutes of Health (NIH) recommendat ions state: <12 ng/mL - Deficient 20 - 50 ng/mL - Optimal Levels - adequate for most people. >50 ng/mL - Increased risk of hypercalciu leticia/other health problems - clinical correlation is required. These reference ranges represent clinical decision values rather than population- based reference values. Ordering Provider: NOY ACEVEDO Report Released Date/Time: Jan 22, 2025 10:50 AM Reporting Lab: [facility] [address] [facility] [address] Performing Lab: [facility] [address] [facility] [address] [facility] THYROID PROFILE THYROTROPIN [UNITS/VOLU ME] IN SERUM OR PLASMA 2.8759 m[IU]/ mL 0.3500 - 4.9400 01/22 Specimen Type: PLASMA Comment: Estimated Glomerular Filtration Rate (eGFR) calculated using the 2020 Chronic Kidney Disease-Epi demiology (CKD-EPI) Collaborati on creatinine equation; units of measure are mL/min/1.73 m2. Results are only valid for adults (>=18 years) whose serum creatinine is in a steady state. eGFR calculation s are not valid for patients with acute kidney injury and for patients on dialysis. Creatinine- based estimates of kidney function may also be inaccurate in patients with reduced creatinine generation due to decreased muscle mass (e.g., malnutritio n, severe hypoalbumin emia, sarcopenia, chronic neuromuscul ar disease, amputations , severe heart failure or liver disease) and in patients with increased creatinine generation due to increased muscle mass (e.g., muscle builders, anabolic steroids) or increased dietary intake. As drug clearance is proportiona l to total GFR and not GFR indexed to body surface area (BSA), in individuals with a BSA substantial ly different than 1.73 m2, drug dosing should be based on the reported eGFR value de-indexed from BSA by multiplying by the individual' s BSA and dividing by 1.73. CKD is diagnosed based on abnormaliti es of kidney structure or function, present for >3 months, with implication s for health and disease. CKD is classified and staged based on cause, eGFR and albuminuria (quantified as urine albumin to creatinine ratio). An eGFR >60 mL/min/1.73 m2 in the absence of increased urine albumin excretion or structural abnormaliti es does not represent CKD. eGFR CKD Interpretat ion (mL/min/1.7 3 m2) stage >=90 G1 Normal 60-89 G2 Mild decrease 45-59 G3A Mild to moderate decrease 30-44 G3B Moderate to severe decrease 15-29 G4 Severe decrease <15 G5 Kidney failure Vitamin B12 test may not yield results when protein level of sample is too elevated. Ordering Provider: NOY ACEVEDO Report Released Date/Time: Jan 22, 2025 10:50 AM Reporting Lab: [facility] [address] [address] Performing Lab: [facility] [address] [address] [facility] THYROID PROFILE FREE T4 0.87 ng/mL 0.70 - 1.48 01/22 Specimen Type: PLASMA Comment: Estimated Glomerular Filtration Rate (eGFR) calculated using the 2020 Chronic Kidney Disease-Epi demiology (CKD-EPI) Collaborati on creatinine equation; units of measure are mL/min/1.73 m2. Results are only valid for adults (>=18 years) whose serum creatinine is in a steady state. eGFR calculation s are not valid for patients with acute kidney injury and for patients on dialysis. Creatinine- based estimates of kidney function may also be inaccurate in patients with reduced creatinine generation due to decreased muscle mass (e.g., malnutritio n, severe hypoalbumin emia, sarcopenia, chronic neuromuscul ar disease, amputations , severe heart failure or liver disease) and in patients with increased creatinine generation due to increased muscle mass (e.g., muscle builders, anabolic steroids) or increased dietary intake. As drug clearance is proportiona l to total GFR and not GFR indexed to body surface area (BSA), in individuals with a BSA substantial ly different than 1.73 m2, drug dosing should be based on the reported eGFR value de-indexed from BSA by multiplying by the individual' s BSA and dividing by 1.73. CKD is diagnosed based on abnormaliti es of kidney structure or function, present for >3 months, with implication s for health and disease. CKD is classified and staged based on cause, eGFR and albuminuria (quantified as urine albumin to creatinine ratio). An eGFR >60 mL/min/1.73 m2 in the absence of increased urine albumin excretion or structural abnormaliti es does not represent CKD. eGFR CKD Interpretat ion (mL/min/1.7 3 m2) stage >=90 G1 Normal 60-89 G2 Mild decrease 45-59 G3A Mild to moderate decrease 30-44 G3B Moderate to severe decrease 15-29 G4 Severe decrease <15 G5 Kidney failure Vitamin B12 test may not yield results when protein level of sample is too elevated. Ordering Provider: NOY ACEVEDO Report Released Date/Time: Jan 22, 2025 10:50 AM Reporting Lab: [address] [phone] Performing Lab: [address] [address] [facility] GLYCOHEMO GLOBIN HEMOGLOBIN A1C/HEMOGLO BIN.TOTAL IN BLOOD BY HPLC 5.2 4.4 - 5.6 01/22 Specimen Type: BLOOD Comment: [facility] guidelines for A1c interpretat ion: Glycemic control targets are based on Shared Decision Making between clinicians and patients. Criteria used to establish an A1c target recommendat ion can be found at https://www .[place].gov/petra lityandpati entsafety/ and include the use of result accuracy and precision(C V) of the A1c tests clinicians utilize at their own sites of practice. Values obtained from A1C measurement s can vary. For typical A1C assays, a reported value of 7.0 could actually be between 6.72 and 7.28 if measured by a reference method. A reported value of 9.0 could actually be between 8.73 and 9.27. Ref: https://ngs p.org/CAPda ta.asp. The in-house Elixent-Not iT D-100 analyzer has a historical CV <= 2%. Contact the laboratory for further performance characteris tics of this assay. Ordering Provider: NOY ACEVEDO Report Released Date/Time: Jan 22, 2025 10:50 AM Reporting Lab: [facility] [address] [facility] [address] Performing Lab: [facility] [address] [address] [facility] LIPID PROFILE CHOLESTEROL [MASS/VOLUM E] IN SERUM OR PLASMA 155 mg/dL 0 - 199 01/22 Specimen Type: PLASMA Comment: Estimated Glomerular Filtration Rate (eGFR) calculated using the 2020 Chronic Kidney Disease-Epi demiology (CKD-EPI) Collaborati on creatinine equation; units of measure are mL/min/1.73 m2. Results are only valid for adults (>=18 years) whose serum creatinine is in a steady state. eGFR calculation s are not valid for patients with acute kidney injury and for patients on dialysis. Creatinine- based estimates of kidney function may also be inaccurate in patients with reduced creatinine generation due to decreased muscle mass (e.g., malnutritio n, severe hypoalbumin emia, sarcopenia, chronic neuromuscul ar disease, amputations , severe heart failure or liver disease) and in patients with increased creatinine generation due to increased muscle mass (e.g., muscle builders, anabolic steroids) or increased dietary intake. As drug clearance is proportiona l to total GFR and not GFR indexed to body surface area (BSA), in individuals with a BSA substantial ly different than 1.73 m2, drug dosing should be based on the reported eGFR value de-indexed from BSA by multiplying by the individual' s BSA and dividing by 1.73. CKD is diagnosed based on abnormaliti es of kidney structure or function, present for >3 months, with implication s for health and disease. CKD is classified and staged based on cause, eGFR and albuminuria (quantified as urine albumin to creatinine ratio). An eGFR >60 mL/min/1.73 m2 in the absence of increased urine albumin excretion or structural abnormaliti es does not represent CKD. eGFR CKD Interpretat ion (mL/min/1.7 3 m2) stage >=90 G1 Normal 60-89 G2 Mild decrease 45-59 G3A Mild to moderate decrease 30-44 G3B Moderate to severe decrease 15-29 G4 Severe decrease <15 G5 Kidney failure Vitamin B12 test may not yield results when protein level of sample is too elevated. Ordering Provider: NOY ACEVEDO Report Released Date/Time: Jan 22, 2025 10:50 AM Reporting Lab: [address] [address] Performing Lab: [address] [address] [facility] LIPID PROFILE TRIGLYCERID E [MASS/VOLUM E] IN SERUM OR PLASMA 57 mg/dL 0 - 149 01/22 Specimen Type: PLASMA Comment: Estimated Glomerular Filtration Rate (eGFR) calculated using the 2020 Chronic Kidney Disease-Epi demiology (CKD-EPI) Collaborati on creatinine equation; units of measure are mL/min/1.73 m2. Results are only valid for adults (>=18 years) whose serum creatinine is in a steady state. eGFR calculation s are not valid for patients with acute kidney injury and for patients on dialysis. Creatinine- based estimates of kidney function may also be inaccurate in patients with reduced creatinine generation due to decreased muscle mass (e.g., malnutritio n, severe hypoalbumin emia, sarcopenia, chronic neuromuscul ar disease, amputations , severe heart failure or liver disease) and in patients with increased creatinine generation due to increased muscle mass (e.g., muscle builders, anabolic steroids) or increased dietary intake. As drug clearance is proportiona l to total GFR and not GFR indexed to body surface area (BSA), in individuals with a BSA substantial ly different than 1.73 m2, drug dosing should be based on the reported eGFR value de-indexed from BSA by multiplying by the individual' s BSA and dividing by 1.73. CKD is diagnosed based on abnormaliti es of kidney structure or function, present for >3 months, with implication s for health and disease. CKD is classified and staged based on cause, eGFR and albuminuria (quantified as urine albumin to creatinine ratio). An eGFR >60 mL/min/1.73 m2 in the absence of increased urine albumin excretion or structural abnormaliti es does not represent CKD. eGFR CKD Interpretat ion (mL/min/1.7 3 m2) stage >=90 G1 Normal 60-89 G2 Mild decrease 45-59 G3A Mild to moderate decrease 30-44 G3B Moderate to severe decrease 15-29 G4 Severe decrease <15 G5 Kidney failure Vitamin B12 test may not yield results when protein level of sample is too elevated. Ordering Provider: NOY ACEVEDO Report Released Date/Time: Jan 22, 2025 10:50 AM Reporting Lab: [facility] [address] [address] Performing Lab: [facility] [address] [address] [facility] LIPID PROFILE CHOLESTEROL IN HDL [MASS/VOLUM E] IN SERUM OR PLASMA 64 mg/dL 40 - 69 01/22 Specimen Type: PLASMA Comment: Estimated Glomerular Filtration Rate (eGFR) calculated using the 2020 Chronic Kidney Disease-Epi demiology (CKD-EPI) Collaborati on creatinine equation; units of measure are mL/min/1.73 m2. Results are only valid for adults (>=18 years) whose serum creatinine is in a steady state. eGFR calculation s are not valid for patients with acute kidney injury and for patients on dialysis. Creatinine- based estimates of kidney function may also be inaccurate in patients with reduced creatinine generation due to decreased muscle mass (e.g., malnutritio n, severe hypoalbumin emia, sarcopenia, chronic neuromuscul ar disease, amputations , severe heart failure or liver disease) and in patients with increased creatinine generation due to increased muscle mass (e.g., muscle builders, anabolic steroids) or increased dietary intake. As drug clearance is proportiona l to total GFR and not GFR indexed to body surface area (BSA), in individuals with a BSA substantial ly different than 1.73 m2, drug dosing should be based on the reported eGFR value de-indexed from BSA by multiplying by the individual' s BSA and dividing by 1.73. CKD is diagnosed based on abnormaliti es of kidney structure or function, present for >3 months, with implication s for health and disease. CKD is classified and staged based on cause, eGFR and albuminuria (quantified as urine albumin to creatinine ratio). An eGFR >60 mL/min/1.73 m2 in the absence of increased urine albumin excretion or structural abnormaliti es does not represent CKD. eGFR CKD Interpretat ion (mL/min/1.7 3 m2) stage >=90 G1 Normal 60-89 G2 Mild decrease 45-59 G3A Mild to moderate decrease 30-44 G3B Moderate to severe decrease 15-29 G4 Severe decrease <15 G5 Kidney failure Vitamin B12 test may not yield results when protein level of sample is too elevated. Ordering Provider: NOY ACEVEDO Report Released Date/Time: Jan 22, 2025 10:50 AM Reporting Lab: [facility] [address] [address] Performing Lab: [facility] [address] [address] [facility] LIPID PROFILE CHOLESTEROL IN LDL [MASS/VOLUM E] IN SERUM OR PLASMA BY DIRECT ASSAY 86 mg/dL 0 - 100 01/22 Specimen Type: PLASMA Comment: Estimated Glomerular Filtration Rate (eGFR) calculated using the 2020 Chronic Kidney Disease-Epi demiology (CKD-EPI) Collaborati on creatinine equation; units of measure are mL/min/1.73 m2. Results are only valid for adults (>=18 years) whose serum creatinine is in a steady state. eGFR calculation s are not valid for patients with acute kidney injury and for patients on dialysis. Creatinine- based estimates of kidney function may also be inaccurate in patients with reduced creatinine generation due to decreased muscle mass (e.g., malnutritio n, severe hypoalbumin emia, sarcopenia, chronic neuromuscul ar disease, amputations , severe heart failure or liver disease) and in patients with increased creatinine generation due to increased muscle mass (e.g., muscle builders, anabolic steroids) or increased dietary intake. As drug clearance is proportiona l to total GFR and not GFR indexed to body surface area (BSA), in individuals with a BSA substantial ly different than 1.73 m2, drug dosing should be based on the reported eGFR value de-indexed from BSA by multiplying by the individual' s BSA and dividing by 1.73. CKD is diagnosed based on abnormaliti es of kidney structure or function, present for >3 months, with implication s for health and disease. CKD is classified and staged based on cause, eGFR and albuminuria (quantified as urine albumin to creatinine ratio). An eGFR >60 mL/min/1.73 m2 in the absence of increased urine albumin excretion or structural abnormaliti es does not represent CKD. eGFR CKD Interpretat ion (mL/min/1.7 3 m2) stage >=90 G1 Normal 60-89 G2 Mild decrease 45-59 G3A Mild to moderate decrease 30-44 G3B Moderate to severe decrease 15-29 G4 Severe decrease <15 G5 Kidney failure Vitamin B12 test may not yield results when protein level of sample is too elevated. Ordering Provider: NOY ACEVEDO Report Released Date/Time: Jan 22, 2025 10:50 AM Reporting Lab: [place] [phone] Performing Lab: [address] CBC/PLT LEUKOCYTES [#/VOLUME] IN BLOOD BY AUTOMATED COUNT 6.4 10*3/u L 5.0 - 10.0 01/22 Specimen Type: BLOOD No comment entered. Ordering Provider: NOY ACEVEDO Report Released Date/Time: Jan 22, 2025 10:50 AM Reporting Lab: [place] [phone] Performing Lab: [place] [id number] [facility] CBC/PLT ERYTHROCYTE S [#/VOLUME] IN BLOOD BY AUTOMATED COUNT 4.94 10*6/u L 4.6 - 6.2 01/22 Specimen Type: BLOOD No comment entered. Ordering Provider: NOY ACEVEDO Report Released Date/Time: Jan 22, 2025 10:50 AM Reporting Lab: [address] [address] Performing Lab: [address] [address] [facility] CBC/PLT HEMOGLOBIN [MASS/VOLUM E] IN BLOOD 14.6 g/dL 14.0 - 18.0 01/22 Specimen Type: BLOOD No comment entered. Ordering Provider: NOY ACEVEDO Report Released Date/Time: Jan 22, 2025 10:50 AM Reporting Lab: [address] [address] Performing Lab: [address] [address] [facility] CBC/PLT HEMATOCRIT [VOLUME FRACTION] OF BLOOD BY AUTOMATED COUNT 44.6 42.0 - 52.0 01/22 Specimen Type: BLOOD No comment entered. Ordering Provider: NOY ACEVEDO Report Released Date/Time: Jan 22, 2025 10:50 AM Reporting Lab: [address] [address] Performing Lab: [address] [address] [facility] CBC/PLT MCV [ENTITIC VOLUME] BY AUTOMATED COUNT 90.3 fL 80.0 - 94.0 01/22 Specimen Type: BLOOD No comment entered. Ordering Provider: NOY ACEVEDO Report Released Date/Time: Jan 22, 2025 10:50 AM Reporting Lab: [address] [address] Performing Lab: [address] [address] [facility] CBC/PLT MCH [ENTITIC MASS] BY AUTOMATED COUNT 29.6 pg 27.0 - 31.0 01/22 Specimen Type: BLOOD No comment entered. Ordering Provider: NOY ACEVEDO Report Released Date/Time: Jan 22, 2025 10:50 AM Reporting Lab: [address] [address] Performing Lab: [address] [address] [facility] CBC/PLT MCHC [MASS/VOLUM E] BY AUTOMATED COUNT 32.7 g/dL 32.0 - 36.0 01/22 Specimen Type: BLOOD No comment entered. Ordering Provider: NOY ACEVEDO Report Released Date/Time: Jan 22, 2025 10:50 AM Reporting Lab: [place] [phone] Performing Lab: [place] [phone] [place] [address] CBC/PLT PLATELETS [#/VOLUME] IN BLOOD 324 10*3/u L 150 - 450 01/22 Specimen Type: BLOOD No comment entered. Ordering Provider: NOY ACEVEDO Report Released Date/Time: Jan 22, 2025 10:50 AM Reporting Lab: [place] [address] Performing Lab: [address] CBC/PLT PLATELET MEAN VOLUME [ENTITIC VOLUME] IN BLOOD 10.7 fL 9.0 - 13.1 01/22 Specimen Type: BLOOD No comment entered. Ordering Provider: NOY ACEVEDO Report Released Date/Time: Jan 22, 2025 10:50 AM Reporting Lab: [place] [address] Performing Lab: [address] CBC/PLT ERYTHROCYTE DISTRIBUTIO N WIDTH [ENTITIC VOLUME] BY AUTOMATED COUNT 13.0 11.0 - 16.0 01/22 Specimen Type: BLOOD No comment entered. Ordering Provider: NOY ACEVEDO Report Released Date/Time: Jan 22, 2025 10:50 AM Reporting Lab: [place] [address] Performing Lab: [address] CBC/PLT NUCLEATED ERYTHROCYTE S/100 ERYTHROCYTE S IN BLOOD 0.0 0.0 - 0.0 01/22 Specimen Type: BLOOD No comment entered. Ordering Provider: NOY ACEVEDO Report Released Date/Time: Jan 22, 2025 10:50 AM Reporting Lab: [address] [phone] Performing Lab: [address] [address] [facility] GLYCOHEMO GLOBIN HEMOGLOBIN A1C/HEMOGLO BIN.TOTAL IN BLOOD BY HPLC 5.5 4.4 - 6.4 01/24 Specimen Type: BLOOD Comment: [facility] guidelines for A1c interpretat ion: Glycemic control targets are based on Shared Decision Making between clinicians and patients. Criteria used to establish an A1c target recommendat ion can be found at https://www .[place].gov/petra lityandpati entsafety/ and include the use of result accuracy and precision(C V) of the A1c tests clinicians utilize at their own sites of practice. Values obtained from A1C measurement s can vary. For typical A1C assays, a reported value of 7.0 could actually be between 6.72 and 7.28 if measured by a reference method. A reported value of 9.0 could actually be between 8.73 and 9.27. Ref: https://ngs p.org/CAPda ta.asp. The in-house Elixent-Not iT D-100 analyzer has a historical CV <= 2%. Contact the laboratory for further performance characteris tics of this assay. Ordering Provider: NOY ACEVEDO Report Released Date/Time: Jan 25, 2024 10:08 AM Reporting Lab: [address] [phone] Performing Lab: [address] [address] [facility] CBC/PLT LEUKOCYTES [#/VOLUME] IN BLOOD BY AUTOMATED COUNT 6.6 10*3/u L 5.0 - 10.0 01/24 Specimen Type: BLOOD No comment entered. Ordering Provider: NOY ACEVEDO Report Released Date/Time: Jan 25, 2024 10:08 AM Reporting Lab: [address] [phone] Performing Lab: [address] [address] [facility] CBC/PLT ERYTHROCYTE S [#/VOLUME] IN BLOOD BY AUTOMATED COUNT 5.11 10*6/u L 4.6 - 6.2 01/24 Specimen Type: BLOOD No comment entered. Ordering Provider: NOY ACEVEDO Report Released Date/Time: Jan 25, 2024 10:08 AM Reporting Lab: [place] [phone] Performing Lab: [address] CBC/PLT HEMOGLOBIN [MASS/VOLUM E] IN BLOOD 14.9 g/dL 14.0 - 18.0 01/24 Specimen Type: BLOOD No comment entered. Ordering Provider: NOY ACEVEDO Report Released Date/Time: Jan 25, 2024 10:08 AM Reporting Lab: [place] [address] Performing Lab: [address] CBC/PLT HEMATOCRIT [VOLUME FRACTION] OF BLOOD BY AUTOMATED COUNT 45.7 42.0 - 52.0 01/24 Specimen Type: BLOOD No comment entered. Ordering Provider: NOY ACEVEDO Report Released Date/Time: Jan 25, 2024 10:08 AM Reporting Lab: [place] [address] Performing Lab: [address] CBC/PLT MCV [ENTITIC VOLUME] BY AUTOMATED COUNT 89.4 fL 80.0 - 94.0 01/24 Specimen Type: BLOOD No comment entered. Ordering Provider: NOY ACEVEDO Report Released Date/Time: Jan 25, 2024 10:08 AM Reporting Lab: [place] [phone] Performing Lab: [address] CBC/PLT MCH [ENTITIC MASS] BY AUTOMATED COUNT 29.2 pg 27.0 - 31.0 01/24 Specimen Type: BLOOD No comment entered. Ordering Provider: NOY ACEVEDO Report Released Date/Time: Jan 25, 2024 10:08 AM Reporting Lab: [address] [address] Performing Lab: [place] [phone] [place] [address] CBC/PLT MCHC [MASS/VOLUM E] BY AUTOMATED COUNT 32.6 g/dL 32.0 - 36.0 01/24 Specimen Type: BLOOD No comment entered. Ordering Provider: NOY ACEVEDO Report Released Date/Time: Jan 25, 2024 10:08 AM Reporting Lab: [address] [phone] Performing Lab: [place] [phone] [place] [address] CBC/PLT PLATELETS [#/VOLUME] IN BLOOD 291 10*3/u L 150 - 450 01/24 Specimen Type: BLOOD No comment entered. Ordering Provider: NOY ACEVEDO Report Released Date/Time: Jan 25, 2024 10:08 AM Reporting Lab: [address] [phone] Performing Lab: [place] [phone] [place] [address] CBC/PLT PLATELET MEAN VOLUME [ENTITIC VOLUME] IN BLOOD 9.8 fL 9.0 - 13.1 01/24 Specimen Type: BLOOD No comment entered. Ordering Provider: NOY ACEVEDO Report Released Date/Time: Jan 25, 2024 10:08 AM Reporting Lab: [address] [address] Performing Lab: [address] [phone] [place] [address] CBC/PLT ERYTHROCYTE DISTRIBUTIO N WIDTH [ENTITIC VOLUME] BY AUTOMATED COUNT 13.4 11.0 - 16.0 01/24 Specimen Type: BLOOD No comment entered. Ordering Provider: NOY ACEVEDO Report Released Date/Time: Jan 25, 2024 10:08 AM Reporting Lab: [address] [address] Performing Lab: [address] [address] [facility] CBC/PLT NUCLEATED ERYTHROCYTE S/100 ERYTHROCYTE S IN BLOOD 0.0 0.0 - 0.0 01/24 Specimen Type: BLOOD No comment entered. Ordering Provider: NOY ACEVEDO Report Released Date/Time: Jan 25, 2024 10:08 AM Reporting Lab: [address] [address] Performing Lab: [address] [address] [facility] Vital Signs Combined list of inpatient and outpatient Vital Signs from Department of [facility] and [facility], ranging from 12 months to all on record, depending upon the facility. Vital Sign Value Date Comments Source SYSTOLIC BLOOD PRESSURE 155 01/22/2025 09:54:24 [facility] DIASTOLIC BLOOD PRESSURE 87 01/22/2025 09:54:24 [facility] PULSE OXIMETRY 98 01/22/2025 09:54:24 [facility] WEIGHT 148 01/22/2025 09:54:24 [facility] BMI 21 kg/m2 01/22/2025 09:54:24 [facility] PAIN 3 01/22/2025 09:54:24 [facility] HEIGHT 70 01/22/2025 09:54:24 [facility] TEMPERATURE 97.8 01/22/2025 09:54:24 [facility] PULSE 69 01/22/2025 09:54:24 [facility] RESPIRATION 20 01/22/2025 09:54:24 [facility] Encounters Combined list of: 1) Encounters from [facility] facilities going backup to the last 18 months, not all [place] inpatient encounters are included; 2) Encounters from the Department of [facility] facilities going backup to 280 months. Location Location Details Encounter Type Encounter Number Reason For Visit Attending Provider ADM Date DC Date Status Disposition Source [facility] Outpatient Encounter [id number] 01/20 [place] [facility] OFFICE O/P EST MOD 30 MIN [id number] Diagnos is: ICD-10- CM I48.91 Unspeci fied atrial fibrill NOY Soliz 01/24 [place] [facility] PSYTX W PT 30 MINUTES [id number] Diagnos is: ICD-10- CM Z63.4 Disappe arance and of family member VIOLETA AMBROSE ANY M 01/24 [place] [facility] Outpatient Encounter [id number] 01/24 [place] PSYTX W PT 30 MINUTES [id number] Diagnos is: ICD-10- CM Z63.4 Disappe arance and of family member VIOLETA AMBROSE M 02/06 [place] [facility] Outpatient Encounter [id number] 02/24 [place] Outpatient Encounter [id number] 03/01 [place] [facility] Outpatient Encounter [id number] 07/03 [place] [facility] Outpatient Encounter [id number] 11/07 [place] Outpatient Encounter [id number] 12/06 [place] OFFICE O/P EST MOD 30 MIN [id number] Diagnos is: ICD-10- CM I48.91 Unspeci fied atrial fibrill edgard ACEVEDO,NOY ONEILLH 01/22 [place] [facility] Social History Combined list of available smoking, tobacco, and other social history from [facility] of Defense and [facility] facilities. Social History Type Response Date Comment [facility] e Tobacco smoking status NHIS VA-TOBACCO USE FORMER CIGARETTES 01/22/2025 [facility] History of tobacco use [place] NEVER USED OTHER TYPE 01/22/2025 [facility] History of tobacco use [place]-TOBACCO QUIT 15 YRS OR MORE 01/25/2024 [facility] History of tobacco use [place]-TOBACCO FORMER USER 02/18/2023 [facility] History of tobacco use [place]-TOBACCO NEVER USED 03/17/2022 [facility] History of tobacco use [place]-TOBACCO FORMER USER 03/11/2021 [facility] History of tobacco use [place]-TOBACCO QUIT 15 YRS OR MORE 04/02/2020 [facility] History of tobacco use [place]-TOBACCO FORMER USER 02/28/2019 [facility] History of tobacco use V9 QUIT TOBACCO >7 YEARS AGO 02/16/2018 [facility] History of tobacco use V9 QUIT TOBACCO >7 YEARS AGO 10/27/2016 [facility] History of tobacco use V9 QUIT TOBACCO >7 YEARS AGO 09/26/2015 [facility] History of tobacco use V9 QUIT TOBACCO >7 YEARS AGO 10/15/2014 [facility] History of tobacco use V9 QUIT TOBACCO >7 YEARS AGO 02/09/2013 [facility] History of tobacco use V9 QUIT TOBACCO >7 YEARS AGO 02/03/2012 [facility] History of tobacco use V9 QUIT TOBACCO >7 YEARS AGO 03/30/2011 [facility] History of tobacco use V9 QUIT TOBACCO >7 YEARS AGO 03/19/2010 [facility] History of tobacco use V9 QUIT TOBACCO >7 YEARS AGO 12/20/2006 [facility] History of tobacco use HF V9 CURRENT NON-SMOKER 04/01/2006 1974 [facility] History of tobacco use HF V9 LIFETIME NON-SMOKER 02/27/2004 [facility] History of tobacco use HF V9 CURRENT NON-SMOKER 02/14/2003 aug 08 [facility]
[2025-04-08 23:19] VITALS: BP 158/82; PULSE 67; RESP 12; TEMP 37.2; O2SAT 96; BMI 20.7
--- NOTE | 2025-04-08 23:24 | HMH.EDGENADL ---
Discharge Plan Disposition Patient Disposition: Home, Self-Care Prescriptions Prescriptions: No Action doxycycline hyclate 100 MG capsule 100 mg PO BID atorvastatin 20 MG tablet 20 mg PO HS flecainide 50 MG tablet 50 mg PO DAILY mupirocin 2 % ointment 1 applicatio topical BID metoprolol succinate 25 MG tablet extended release 24 hr 25 mg PO DAILY ibuprofen 600 MG tablet 600 mg PO TID Patient Comments: TAKE 1 TABLET BY MOUTH EVERY 12 HOURS NEEDED cephalexin 500 MG capsule 500 mg PO TID Qty: 30 0RF lidocaine 1 EACH adhesive patch,medicated 1 each TP Q24H 10 Days Qty: 10 0RF cyclobenzaprine 5 MG tablet 5 mg PO BIDP PRN (Reason: Muscle Spasm) 5 Days Qty: 10 0RF Rx Instructions: Do not operate heavy machinery or drink alcohol while taking this medicine Referrals Follow up/Referrals: Provider,Referral, MD [Primary Care Provider, Medical] - See instructions Activity Restrictions/Add. Instructions Additional Instructions/Restrictions: Please follow-up with your primary care provider. Please return to the emergency department if you develop any new or worsening symptoms or become concerned for your health. Clinical Impressions Clinical Impression: Palpitations Print Language Print Language: Polish Discharge ED Provider: Jim Curiel General Adult HPI General Chief complaint: Arrhythmia/Palpitations Stated complaint: apple watch informed of HHR, denies SOA/n/v Time Seen by Provider: 04/08/25 23:24 History of Present Illness HPI narrative: 84-year-old male with reported heart rhythm problem on flecainide presents after an episode of tachycardia reported to him by his Apple Watch. He reports that he sought and he felt some palpitations and maybe a little dizzy. Not sure how long it lasted, perhaps an hour. He denies any chest pain shortness of breath or any other symptoms. He reports he sees cardiology in [place] and is [facility]. Of note, it has been very hot outside last couple of days and patient was noted to be outside when EMS arrived. They are concerned he could be dehydrated. Patient reports that he drinks some coffee but has not drank a ton of water today. Related Data Home Medications ?Medication ?Instructions ?Recorded ?Confirmed atorvastatin 20 mg tablet 20 mg PO HS lipids 08/27/19 12/22/24 doxycycline hyclate 100 mg capsule 100 mg PO BID Infection 08/27/19 12/22/24 flecainide 50 mg tablet 50 mg PO DAILY afib 08/27/19 12/22/24 ibuprofen 600 mg tablet 600 mg PO TID Infection 08/27/19 12/22/24 metoprolol succinate 25 mg 25 mg PO DAILY aortic valve 08/27/19 12/22/24 tablet,extended release 24 hr disorder/htn mupirocin 2 % topical ointment 1 applicatio topical BID cellulitis 08/27/19 12/22/24 Previous Rx's ?Medication ?Instructions ?Recorded cephalexin 500 mg capsule 500 mg PO TID #30 caps 08/27/19 cyclobenzaprine 5 mg tablet 5 mg PO BIDP PRN Muscle Spasm 5 02/03/21 days #10 tabs lidocaine 5 % topical patch 1 each TP Q24H Back ache/back pain 02/03/21 10 days ##10 Allergies Allergy/AdvReac Type Severity Reaction Status Date / Time No Known Allergies Allergy Verified 08/27/19 19:42 [facility] Disclaimer: The information contained in this section may have been updated after the patient was seen, as this information can be updated by other users. Social History Smoking Status: Former smoker alcohol intake: never current occupational status: retired Travel in the last 8 weeks?: None housing: house Have you lived/traveled outside US in past 30 days?: No Contact w/someone who lives/traveled outside US past 30 days?: No Exposure to someone with infectious disease in past 14 days?: No Do you have a fever (greater than 100.4 F or 38 C)?: No Have you tested positive for COVID-19?: No Exposed to someone with COVID-19 in past 14 days?: No Do you have a sore throat?: No Do you have a cough?: No Do you have any weakness?: No Do you have any diarrhea?: No Are you experiencing any unusual bleeding?: No Do you have any muscle aches/pain?: No Do you have any abdominal pain?: No Are you experiencing loss of taste or smell?: No Other Medical History Have you received the Flu Vaccine for this season: Yes Have you received the Pneumonia Vaccine: No ROS Obtained: Yes All systems reviewed & no additional complaints except as documented Physical Exam General General appearance: alert and in no apparent distress Head Head exam: atraumatic and normocephalic Eye Eye exam: Present normal appearance, PERRL and EOMI ENT ENT exam: Present normal oropharynx and normal external ear exam Neck Neck exam: Present normal inspection and full ROM Chest Chest inspection: Present normal inspection and symmetric chest wall rise; Absent tenderness Respiratory Respiratory exam: Present normal lung sounds bilaterally; Absent respiratory distress Cardiovascular Cardiovascular exam: Present regular rate and normal rhythm Abdominal Exam Abdominal exam: Present soft; Absent distention, tenderness or guarding Extremities Exam Extremities exam: Present normal inspection; Absent edema or joint swelling Back Exam Back exam: Present normal inspection; Absent tenderness Neurological Exam Neurological exam: Present alert and oriented X3; Absent motor sensory deficit Psychiatric Psychiatric exam: Present normal affect and normal mood Skin Skin exam: Present warm, dry and normal color Lymphatic Lymphatic Findings: no adenopathy Medical Decision Making Medical Records Medical records reviewed: Yes I reviewed the patient's medical records. Screening: Per USPSTF and CDC recommendations, given the prevalence of disease in our region, it is our hospital?s policy to screen for HIV and viral Hepatitis for all patients aged 18 and over and those with ongoing risk factors. Jerry Inquiry Pt receiving controlled substance: No Jerry was queried for this patient: No Vital Signs: 04/08/25 23:19 04/09/25 00:15 Temperature 98.9 F Temperature Source Oral Pulse Rate 66 Pulse Rate [Radial] 67 Respiratory Rate 12 17 Blood Pressure [Right Arm] 158/82 H Blood Pressure Mean [Right Arm] 107 Blood Pressure Position [Right Arm] Sitting 02 Sat by Pulse Oximetry 96 95 Oxygen Delivery Method Room Air Lab Data Lab results reviewed: Yes I reviewed the patient's lab results. Lab Results 04/08/25 23:15: WBC 7.1, RBC 4.68, Hgb 14.0 L, Hct 41.2 L, MCV 88.0, MCH 29.9, MCHC 34.0, RDW 12.7, Plt Count 294, MPV 10.3, Neut % (Auto) 61.0, Lymph % (Auto) 24.4, [place] % (Auto) 9.7 H, Eos % (Auto) 3.9, Baso % (Auto) 0.7, Neut # (Auto) 4.4, Lymph # (Auto) 1.7, [place] # (Auto) 0.7, Eos # (Auto) 0.3, Baso # (Auto) 0.1, Sodium 136, Potassium 4.5, Chloride 104, Carbon Dioxide 28, Anion Gap 8.5, BUN 17, Creatinine 0.80, Estimated GFR 93, Est GFR ( Amer) 112, Glucose 98, Calcium 9.5, Magnesium 1.8, Total Bilirubin 1.7 H, AST 39, ALT 19, Alkaline Phosphatase 64, Troponin I < 0.01, Total Protein 7.0, Albumin 4.3, Globulin 2.7, Albumin/Globulin Ratio 1.6, TSH 5.53 H, Thyroxine (T4) 8.0 04/08/25 23:15 04/08/25 23:15 Orders (Tests/Meds): ED MEDICATIONS Discontinued Medications Generic Name Dose Route Start Last Admin Trade Name Freq PRN Reason Stop Dose Admin Lactated Ringer's 1,000 mls @ 999 mls/hr 04/08/25 23:45 04/08/25 23:36 Lactated Ringer's 1000 Ml Bag IV 04/09/25 00:45 999 mls/hr .Q1H1M TOVA Administration ORDERS Category Date Time Status CXR --portable [XR chest portable] Stat Exams 04/08/25 23:31 Taken CBC w/Auto Diff [Complete Blood Count Auto Diff] Stat Lab 04/08/25 23:15 Completed CMP [Comprehensive Metabolic Panel] Stat Lab 04/08/25 23:15 Completed Magnesium Stat Lab 04/08/25 23:15 Completed T4 (Thyroxine) Stat Lab 04/08/25 23:15 Completed TSH [Thyroid Stimulating Hormone] Stat Lab 04/08/25 23:15 Completed Troponin I Q3H Lab 04/08/25 23:15 Completed Troponin I Q3H Lab 04/09/25 02:45 Ordered ECG Data Tracing #1: I reviewed this ECG and interpreted as documented below: Sinus rhythm, ventricular rate of 91, isolated Q-wave in V2, no significant ST elevation or depression. ECG initial impression date: 04/08/25 ECG initial impression time: 23:27 HEART Score History (anamnesis): Slightly suspicious ECG: Normal Age: >65 years Risk factors: 1-2 risk factors Troponin: </= normal limit HEART Score: 3 Medical Decision Narrative: 84-year-old male with history of heart rhythm problem on flecainide who presents for palpitations and brief dizziness after being alerted by his Apple Watch that his heart rate was higher than normal.. History was obtained via interactive discussion with patient, EMS. On arrival, patient is [afebrile, hemodynamically stable, satting appropriately, alert, oriented x4, GCS 15], moving all extremities spontaneously. Full physical exam performed and significant for no significant physical exam abnormalities. Differential includes but is not limited to dehydration, A-fib, SVT, bradycardia, palpitations, electrolyte derangement. Patient was given 1 L of IV fluids for symptomatic management and correction of underlying abnormalities. Workup initiated including CBC CMP EKG mag troponin TSH T4 chest x-ray. On re-evaluation, patient [remains afebrile, HD stable.] Remains asymptomatic. Laboratory workup independently interpreted by me and significant for no significant electrolyte derangement, normal renal function, negative initial troponin. Imaging independently interpreted by me and significant for clear lungs bilaterally without pneumothorax or pneumonia.. See radiology read for full review of final results. Repeat troponin was considered, but deemed unnecessary due to no significant concern for ACS at this time.. Given patient history, exam and workup, patient's presentation most likely represents palpitations, could be a brief resolved episode of A-fib. Low concern for the pathology at this time. Patient discharged with instruction to follow-up with PCP and cardiology. Procedures Risk/Benefits of Procedure(s) Were Explained: Yes Critical Care Critical Care Time Critical Care Time: No
--- NOTE | 2025-04-08 23:31 | XR_ITS ---
PROCEDURE INFORMATION: Exam: XR Chest Exam date and time: 04/09/2025 12:53 AM Age: 84 years old Clinical indication: Other: Palpitations; Additional info: Dizziness, palpitations TECHNIQUE: Imaging protocol: Radiologic exam of the chest. Views: 1 view. COMPARISON: CR XR CHEST PORTABLE 12/22/2024 7:46 PM FINDINGS: Lungs: Diffuse interstitial pattern opacities without defined airspace disease or effusions Pleural spaces: Unremarkable. No pleural effusion. No pneumothorax. Heart/Mediastinum: Unremarkable. No cardiomegaly. Bones/joints: Unremarkable. Other findings: Mild hyperexpansion IMPRESSION: Suspect chronic lung disease. No definite acute abnormality.
[2025-04-08] MEDS: LACTATED RINGERS 1000ML 1,000 ML 999 ML IV (23:36)
[2025-04-08 23:38] LABS: Basophils # 0.1 K/mm3 (0-0.2); Basophils % 0.7 % (0.1-2.0); Eosinophils # 0.3 Kmm3 (0.0-0.4); Eosinophils % 3.9 % (0.1-12.0); Hematocrit 41.2 % (42.0-52.0); Immature Granulocytes # 0.02 10^3uL; Immature Granulocytes % 0.3 %; Lymphocytes # 1.7 K/mm3 (0.7-4.5); Lymphocytes % 24.4 % (10-50); Mean Corpuscular Hemoglobin 29.9 pg (27.0-31.2); Mean Platelet Volume 10.3 fl (7.4-10.4); Monocytes # 0.7 K/mm3 (0.1-1.0); Monocytes % 9.7 % (1.7-9.3); Neutrophils # 4.4 K/mm3 (1.8-7.8); Nucleated Red Blood Cells # 0 10^3/uL; Nucleated Red Blood Cells % 0 %; Platelet Count 294 K/mm3 (142-424); Red Blood Count 4.68 M/mm3 (4.60-6.20); Red Cell Distribution Width 12.7 % (11.5-17.5); Red Cell Distribution Width-SD 40.3 fL; White Blood Count 7.1 K/mm3 (4.8-10.8)
--- NOTE | 2025-04-08 23:45 | ECG_ITS ---
APPROVED REPORT Exam: Resting ECG HR:91 bpm ECG Measurements Heart Rate 91 AXES OK 150 P -42 QRSd 102 QRS -38 QT 362 T 76 QTc 411 Conclusion SINUS RHYTHM LEFT AXIS DEVIATION [QRS AXIS < -30] POSSIBLE RIGHT VENTRICULAR CONDUCTION DELAY [RSR (QR) IN V1/V2] LEFT VENTRICULAR HYPERTROPHY AND ST-T CHANGE [VOLTAGE CRITERIA PLUS ST/T ABNORMALITY] POSSIBLE SEPTAL MYOCARDIAL INFARCTION , PROBABLY OLD [30 ms Q WAVE IN V1/V2] POSSIBLE LATERAL MYOCARDIAL INFARCTION , OF INDETERMINATE AGE [30 ms Q WAVE IN I/aVL/V5/V6] ABNORMAL ECG UNCONFIRMED REPORT Electronically signed by : KODY KENNEY, 04/10/2025 06:31:42
[2025-04-08 23:59] LABS: Alanine Aminotransferase 19 U/L (12-78); Albumin Level 4.3 g/dl (3.5-5.0); Albumin/Globulin Ratio 1.6 (1.1-1.8); Alkaline Phosphatase 64 U/L (38-126); Anion Gap 8.5 mEq/L (5-15); Aspartate Amino Transferase 39 U/L (17-59); Bilirubin,Total 1.7 mg/dl (0.2-1.3); Blood Urea Nitrogen 17 mg/dl (9-20); Calcium 9.5 mg/dl (8.4-10.2); Carbon Dioxide 28 mmol/L (22.0-30.0); Chloride 104 mmol/L (98-107); Estimated Glomerular Filt Rate 93 ml/min (>60); GFR (African American) 112 ML/MIN (>60); Globulin 2.7 g/dL (1.3-3.2); Glucose 98 mg/dl (74-100); Magnesium 1.8 mg/dl (1.6-2.3); Potassium 4.5 mmoL/L (3.5-5.1); Sodium 136 mmol/L (136-145)
--- OUTSIDE RECORDS SUMMARY | 2025-04-09 00:08 | XMS_ITS | Data Portability ---
Author Organization [facility]OS[facility] Address [address] [place] [address] Care Team Providers Care Capability Lead Name Role Phone ALLA FELIPE Digital Imaging Specialist JIMMY DELUCA Primary Care Provider Assessment Encounter Date Assessment Date Assessment LastModified by Organization Details LastModified Time 11/04/2022 11/04/2022 Impression: 1. Paroxysmal atrial fibrillation (on Flecainide): Chronic problem, stable on anti-arrhythmic therapy. 2. Bicuspid aortic valve with associated AI: Chronic problem, stable ECHO 04/29/2022: Bicuspid aortic valve with mild AI. 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 3. Dyslipidemia: Chronic problem, well-controlled on atorvastatin 20 mg daily. Lipid panel in February 2022 showed LDL 92. Plan: Mr. Jaimes appears to be stable from a cardiovascular standpoint. Electronic prescriptions were issued for his cardiovascular medications. We will plan to repeat an echocardiogram when he returns in 6 months, to assess stability of his aortic root and bicuspid valve. RTC in 6 months with EKG for flecainide monitoring. [email or web address] Not available 11/04/2022 21:50:16 04/29/2023 04/29/2023 Impression: 1. Paroxysmal atrial fibrillation (on Flecainide): Chronic problem, stable on anti-arrhythmic therapy. 2. Bicuspid aortic valve with associated AI: Chronic problem, stable ECHO 04/29/2022: Bicuspid aortic valve with mild AI. 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 3. Dyslipidemia: Chronic problem, well-controlled on atorvastatin 20 mg daily. Lipid panel in October 2022 showed LDL 71. Plan: Mr. Jaimes appears to be stable from a cardiovascular standpoint. RTC: 6 months with EKG for flecainide monitoring. Testing at next visit: EKG and echocardiogram to assess stability of his aortic root and bicuspid valve. [email or web address] Not available 05/01/2023 20:34:32 10/28/2023 10/28/2023 Impression: 1. Paroxysmal atrial fibrillation (on Flecainide): Chronic problem, stable on anti-arrhythmic therapy. 2. Bicuspid aortic valve with associated AI: Chronic problem, stable ECHO 04/29/2022: Bicuspid aortic valve with mild AI. 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 3. Dyslipidemia: Chronic problem, well-controlled on atorvastatin 20 mg daily. Lipid panel in October 2022 showed LDL 71. Plan: Mr. Jaimes appears to be stable from a cardiovascular standpoint. Medication changes: None. RTC: 6 months with EKG for flecainide monitoring. Testing at next visit: EKG and echocardiogram to assess stability of his aortic root and bicuspid valve. [email or web address] Not available 10/28/2023 09:32:16 05/12/2024 05/12/2024 Impression: 1. Paroxysmal atrial fibrillation (on Flecainide): Chronic problem, stable on anti-arrhythmic therapy. 2. Bicuspid aortic valve with associated AI: Chronic problem, stable ECHO 05/12/2024: Bicuspid aortic valve with mild AI. 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 3. 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 4. Dyslipidemia: Chronic problem, well-controlled on atorvastatin 20 mg daily. Lipid panel in October 2022 showed LDL 71. 5. Sinus bradycardia: Will discontinue metoprolol. Plan: Mr. Jaimes appears to be stable from a cardiovascular standpoint. As noted above, his EKG shows significant bradycardia and given his advanced age, we will withdraw his beta-stephanie to reduce risk for lightheadedness and falls. Medication changes: STOP Metoprolol succinate 25mg daily RTC: 6 months with EKG for flecainide monitoring. [email or web address] Not available 05/13/2024 14:02:30 11/13/2024 11/13/2024 Impression: 1. Paroxysmal atrial fibrillation (on Flecainide): Chronic problem, stable on anti-arrhythmic therapy. 2. Bicuspid aortic valve with associated AI: Chronic problem, stable ECHO 05/12/2024: Bicuspid aortic valve with mild AI. 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 3. 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 4. Dyslipidemia: Chronic problem, well-controlled on atorvastatin 20 mg daily. Lipid panel in April 2024 reported a calculated LDL of 75. Plan: Mr. Jaimes appears to be stable from a cardiovascular standpoint. He appears to have tolerated the withdrawal of beta-stephanie without any adverse effects. As expected, his heart rate has improved accordingly and was in the 70s today. Lab work from April 2024 was reviewed. His renal function is normal, and his lipid levels are at goal. Medication changes: None RTC: 6 months with EKG for flecainide monitoring. [email or web address] Not available 11/13/2024 12:57:09 Plan of Treatment Reminders Order Date Submit Date Provider Last Modified By Organization Details Last Modified Time Details Appointments RECHECK 2024 09:15A M ALLA FELIPE MD Not available Not available Not available Lab None recorded. Referral None recorded. Procedures None recorded. Surgeries None recorded. Imaging None recorded. Medication Orders Eliquis 5 mg tablet 2022 023 [email or web address] [facility], [address] [place] [address], [place] [address], [id number], 04/29/2023 12:35:49 flecainid e 50 mg tablet 2022 023 [email or web address] [facility], [address] [place] [address], [place] [address], [id number], 04/29/2023 12:35:49 nitroglyc laura 0.4 mg sublingua l tablet 2022 023 [email or web address] [facility], [address] [place] [address], [address], [place], [place], [id number], 04/29/2023 12:35:49 atorvasta tin 20 mg tablet 2022 023 [email or web address] [facility], [address], [address], [place], [place], [id number], 04/29/2023 12:35:49 Eliquis 5 mg tablet 2022 023 [email or web address] [facility], [address], [address], [place], [place], [id number], 11/04/2022 16:53:35 flecainid e 50 mg tablet 2022 023 [email or web address] [facility], [address], [address], [place], [place], [id number], 11/04/2022 16:53:35 nitroglyc laura 0.4 mg sublingua l tablet 2022 023 [email or web address] [facility], [address], [address], [place], [place], [id number], 11/04/2022 16:53:35 atorvasta tin 20 mg tablet 2022 023 [email or web address] [address] [facility], [address] [place] [address], [address], [place], [place], [id number], 11/04/2022 16:53:35 Patient TargetsNo targets recorded. Patient InstructionsNo instructions recorded. Reason for Referral None Reported. Results Created Date Observation Date Name Description Value Unit Range Abnormal Flag Note LastModifiedBy Organization Detail LastModifiedTime 11/04/1911/04/2022 elect fred coelho am No observ ation record ed. BARCODE Not Available 2022 16:08:15 04/30/20 23 04/29/2023 US, doppl er echoc ardio gram, w/ color flow No observ ation record ed. [email or web address] [facility] [address] , [place], [address], 04/30/2023 08:09:50 05/03/20 23 04/29/2023 elect rocar diogr am No observ ation record ed. BARCODE Not Available 2022 14:40:59 10/28/19 24 10/28/2023 elect rocar diogr am No observ ation record ed. BARCODE Not Available 2023 16:00:44 05/12/20 24 05/12/2024 US, doppl er echoc ardio gram, w/ color flow No observ ation record ed. [email or web address] [facility] [address] , [place], [address], 05/12/2024 11:41:32 05/15/20 24 05/12/2024 elect rocar diogr am No observ ation record ed. BARCODE Not Available 2023 13:04:49 11/13/19 25 11/13/2024 elect rocar diogr am No observ ation record ed. BARCODE Not Available 2024 16:05:43 Result Notes None recorded. Problems Name Problem SNOMED Code Status Onset Date Resolution Date Notes Provider Name and Address Organization Details Recorded Time Palpitat ions 62405584 Completed 201403/22/2017 From [employer];Pro vider: Suni Bolaños;S tatus: Active LUCIO PARKER MD [address] [place] [address], [phone] , [facility] 7 09:06:17 Paroxysm al atrial fibrilla tion 893858658 Active 2014 From [employer];Pro vider: Suni Bolaños;S tatus: Active Not Available [facility] 6 05:16:34 Supraven tricular tachycar kathie 6979153 Completed 201403/22/2017 From Automate d Load;Pro vider: Suni Bolaños;S tatus: Active LUCIO PARKER MD [facility] [place], [address] , [facility] 7 09:06:13 Aortic incompet ence, non-rheu matic 839494860 Active 2015 From Autom[employer] Load;Pro vider: Lucio Parker;Cinda tus: Active Not Available [facility] 6 05:16:34 Long-ter m drug therapy Active 2016 Boogie Light MD [address] [place] [address], [phone] , [facility] 7 09:06:32 Upper chest pain 124006308 Completed 201711/11/2017 SUNI BOLAÑOS PA-C [address] [place] [address], [phone] , [facility] 8 16:11:56 Renewal of prescrip tion Active 2017 LUCIO PARKER MD [address] [place] [address], [phone] , [facility] 8 11:41:03 Atypical chest pain 115707979 Active 2019 LUCIO PARKER MD [address] [place] [address], [phone] , [facility] 0 11:19:00 Problem Notes None recorded. Procedures Surgical History Date Name Laterality Status Provider Name and Address Organization Details Recorded Time 5 EKG completed ALLA FELIPE MD [address] [place] [address], [phone], [facility] 11/13/2024 10:00:33 4 EKG completed ALLA FELIPE MD [address] [place] [address], [phone], [facility] 05/13/2024 14:03:17 4 EKG completed ALLA FELIPE MD [address] [place] [address], [phone], [facility] 10/28/2023 09:33:00 3 EKG completed Sy Jaimes [facility] 04/29/2023 10:07:49 3 EKG completed Haley Ivan [facility] 11/04/2022 09:58:34 2 EKG completed Ahley Short [facility] 04/29/2022 09:45:15 2 [place] [address] [place] [address], [phone], [facility] 04/29/2022 17:00:04 1 EKG completed Sy Theodore [facility] 10/16/2021 09:44:05 8 Echocardiogram completed LUCIO PARKER MD [address] [place] [address], [phone], [facility] 03/29/2018 12:40:37 8 EKG completed SUNI BOLAÑOS PA-C [address] [place] [address], [phone], [facility] 11/11/2017 16:09:40 6 Hernia Repair completed Milka Davis [facility] 03/18/2017 15:55:31 Other completed Milka [facility] 03/18/2017 15:55:14 Imaging Results None recorded. Procedure Notes None recorded. Medical Equipment None Reported. Allergies No known drug allergies Medications Name Sig Start Date Stop Date Status Note LastModified by Organization Details LastModified Time atorvasta tin 20 mg tablet TAKE 1 TABLET BY MOUTH AT BEDTIME 2023 active Not Available Not Available Not Avai lable metoprolo l succinate ER 50 mg tablet,ex tended release 24 hr Daily 11/11 completed Frequenc y: daily;Me dication Descript ion: metoprol ol; Dosage:1 ; Route:or al; refills: 3; Quantity :90 tablet, extended release Not Available Not Available Not Available promethaz ine 12.5 mg tablet Take 1 tablet every day by oral route at bedtime. 04/29 completed using as a sleep aid Not Available Not Available Not Available flecainid e 50 mg tablet TAKE 1 TABLET BY MOUTH TWICE DAILY 2023 active Not Available Not Available Not Avai lable nitroglyc laura 0.4 mg sublingua l tablet Take one tablet SL as needed for Chest pain. Repeat every 5 min for unreliev ed Chest pain for a total of 3 doses. If Chest pain not relieved call 911. 2022 active Not Available Not Available Not Avai lable omeprazol e 20 mg capsule,d elayed release Take 1 capsule every day by oral route. active Frequenc y: daily;Me dication Descript ion: omeprazo le; Dosage:1 ; Route:or al; refills: 0 Not Available Not Available Not Available aspirin 81 mg tablet Daily 04/04 completed Duration : 30 days;Juarez quency: daily;Me dication Descript ion: aspirin; Dosage:1 ; Route:or al; refills: 0; Quantity :30 tablet Not Available Not Available Not Available metoprolo l succinate ER 25 mg tablet,ex tended release 24 hr TAKE 1 TABLET BY MOUTH ONCE DAILY 05/12 completed Not Available Not Available Not Available amoxicill in 2,000uni ts before dentist appt. 10/28 completed Not Available Not Available Not Available Fish Oil Daily 10/24 completed Frequenc y: daily;Me dication Descript ion: omega-3 polyunsa turated fatty acids; Dosage:1 ; Route:or al; refills: 0 Not Available Not Available Not Available metoprolo l succinate 25 MGTAKE ONE TABLET BY MOUTH DAILY 03/27 completed Not Available Not Available Not Available Centrum Silver 0.4 mg-300 mcg-250 mcg tablet 04/14 completed Duration : 10 days;Med ication Descript ion: multivit wilkerson with minerals ; Route:or al; refills: 0; Quantity :30 tablet Not Available Not Available Not Available Eliquis 5 mg tablet TAKE 1 TABLET BY MOUTH TWICE DAILY 2023 active Not Available Not Available Not Avai lable Eliquis 2.5 mg tablet Take 1 tablet twice a day by oral route. 04/29 completed 2 sample boxes LOT [id number] EXP 07/10-pat ient to double dose Not Available Not Available Not Available Eliquis 2023 active 5mg, 4 boxes, lot [id number] , exp 06/09, given in office per aundrea jiménez. 04/14/21 5mg, 2 boxes mailed to pt, lot [id number] , exp 11/09, aundrea, .5 mg 4 boxes given in office instruct ed patient to take 2 tabs in AM and 2 tabs in PM to compensa te for lack of 5mg/ Lot#[id number] exp:10/19 3 (3 boxes) Lot#[id number] exp: 08/08 (1 box given) KLW 10/16/21 Not Available Not Available Not Available Vitals Date Recorded Body height Body mass index (BMI) Body weight Oxygen saturation Oxygen saturation in Arterial blood by Pulse oximetry Respiratory rate Heart rate Systolic blood pressure Diastolic blood pressure Provider Name and Address Organization Details Last Updated DateTime 4 177.8 cm 23.3 kg/m2 41129.6 6 g 98 % 98 % 16 /min 61 /min 122 mm[Hg] 72 mm[Hg] Honey Brandt [facility] 4 09:06:41 Date Recorded Body height Body mass index (BMI) Body weight Heart rate Systolic blood pressure Diastolic blood pressure Provider Name and Address Organization Details Last Updated DateTime 3 177.8 cm 23.2 kg/m2 00408.9 6 g 58 /min 140 mm[Hg] 82 mm[Hg] Haley Short [facility] 3 10:06:01 Date Recorded Body height Body mass index (BMI) Body weight Oxygen saturation Oxygen saturation in Arterial blood by Pulse oximetry Heart rate Systolic blood pressure Diastolic blood pressure Provider Name and Address Organization Details Last Updated DateTime 5 177.8 cm 22.1 kg/m2 44820.2 2 g 98 % 98 % 76 /min 150 mm[Hg] 90 mm[Hg] Mckenzie Juanitawero [facility] 5 09:47:52 Date Recorded Body height Body mass index (BMI) Body weight Oxygen saturation Oxygen saturation in Arterial blood by Pulse oximetry Heart rate Systolic blood pressure Diastolic blood pressure Provider Name and Address Organization Details Last Updated DateTime 3 177.8 cm 22.2 kg/m2 59046.3 2 g 96 % 96 % 56 /min 130 mm[Hg] 75 mm[Hg] Sy Jaimes [facility] 3 10:17:28 Date Recorded Body height Body mass index (BMI) Body weight Oxygen saturation Oxygen saturation in Arterial blood by Pulse oximetry Heart rate Systolic blood pressure Diastolic blood pressure Provider Name and Address Organization Details Last Updated DateTime 4 177.8 cm 22.8 kg/m2 69581.5 9 g 97 % 97 % 49 /min 118 mm[Hg] 76 mm[Hg] Destinee Chu [facility] 4 11:08:23 Social History Question Answer Notes LastModified by [employer] Details LastModified Time Tobacco Smoking Status [facility] 15:52:37 When Did You Quit Smoking? 16+yearssin enuice shimonika [email or web address] Information not available 11/11/2017 Marital Status Informatio n not available 03/18/2017 What Was The Date Of Your Most Recent Tobacco Screening? 11/13/2024 [email or web address] Information not available 11/13/2024 What Is Your Relationship Status? [email or web address] Information not available 04/29/2023 How Much Tobacco Do You Smoke? 3+ PPD Former Smoker Quit 07/08/1974 , Smoked For 30 Years, 3 Ppd Information not available 03/18/2017 Has Tobacco Cessation Counseling Been Provided? No Information not available 04/29/2022 Have You Recently Traveled Abroad? No [email or web address] Information not available 10/16/2021 Sex: Unknown Functional Status Question Answer Note LastModified by [employer] Details LastModified Time What is your level of alcohol consumption? Occasional drinks light in moderation Information not available 03/18/2017 Do you or have you ever used smokeless tobacco? Never used smokeless tobacco [email or web address] Information not available 10/02/2019 What is your occupation? Occupation retired Information not available 03/18/2017 Do you or have you ever used e-cigarettes or vape? Never used electronic cigarettes [email or web address] Information not available 10/02/2019 Mental Status None recorded. Family History Relationship Description Onset Age of this Age Resolved Age Notes LastModified by Organization Details LastModified Time Father Family history of malignant neoplasm liver Not available 2016 15:52:00 Mother Hypertensive disorder Not available 2016 15:52:09 Medical History Condition Response Ulcers Y Hyperlipidemia Y Heart Disease Y Atrial Fibrillation Y Hypertension Y High Cholesterol Y Immunizations Vaccine Type Date Status Note Provider Frank barrett and Address Organization Details Recorded Time Influenza, split virus, quadrivalent, preservative 7 completed Haley Ivan [facility] 09/20/2017 10:30:02 Pneumococcal conjugate PCV 13 6 completed Haley Ivan [facility] 09/20/2017 10:30:41 COVID-19, mRNA, LNP-S, PF, 100 mcg/0.5mL dose or 50 mcg/0.25mL dose 1 completed Sy Jaimes [facility] 10/16/2021 09:35:31 COVID-19, mRNA, LNP-S, PF, 100 mcg/0.5mL dose or 50 mcg/0.25mL dose 1 completed Sy Jaimes [facility] 10/16/2021 09:35:45 COVID-19, mRNA, LNP-S, PF, 100 mcg/0.5mL dose or 50 mcg/0.25mL dose 1 completed Sy Jaimes [facility] 10/16/2021 09:35:57 Past Encounters Encounter ID Performer Location Encounter Start Date Encounter Closed Date Diagnosis/Indication Diagnosis SNOMED-CT Code Diagnosis ICD10 Code Diagnosis Note [id number] LUCIO PARKER MD CARDIOLOG [address] [place] [address] 03/22/2017 09:03:18 03/22/2017 10:10:07 Long-term drug therapy 724925466 Z79.899 Patient shows no evidence of toxicity to the antiarrhyt [facility] drug program. Electrocar diogram shows stable QTc interval. Risk of medication and monitoring reviewed with patient. Aortic inc ompetence, non-rheumatic 932057511 I35.1 Echocardio gram performed in 2013 showed inconsiste nt evaluation of left ventricula r function and suggestion of aortic valve disease. Repeat echo 2015 showed normal ejection fraction and no significan t valvular pathology. I will recheck his echo on next visit. Paroxysmal atrial fibrillation 882974397 I48.0 The patient remains in normal sinus rhythm on current therapy. No evidence of antiarrhyt hmic drug toxicity. Details of management and medication risk for antiarrhyt hmics and anticoagul ants reviewed.M edication changes, as well as new medication s were reviewed and discussed in detail including benefit and risk of therapy. The patient is otherwise doing well on current management . No new active problems identified . Chronic problems are all stable. Patient is to continue current regimen without change. All questions answered and regimen reviewed. Patient is to call for any change in status. [id number] LUCIO PARKER MD CARDIOLOG Y [address] [place] [address] 09/20/2017 10:08:45 09/20/2017 14:12:55 Long-term drug therapy 536646960 Z79.899 Flecainide .Patient shows no evidence of toxicity to the antiarrhyt hmic drug program. Electrocar diogram shows stable QTc interval. Risk of medication and monitoring reviewed with patient. Aortic inc ompetence, non-rheumatic 681877407 I35.1 Echocardio gram performed in 2013 showed inconsiste nt evaluation of left ventricula r function and suggestion of aortic valve disease. Repeat echo 2015 showed normal ejection fraction and no significan t valvular pathology. Paroxysmal atrial fibrillation 300178713 I48.0 The patient remains in normal sinus rhythm on current therapy. No evidence of antiarrhyt hmic drug toxicity. Details of management and medication risk for antiarrhyt hmics and anticoagul ants reviewed.M edication changes, as well as new medication s were reviewed and discussed in detail including benefit and risk of therapy. The patient is otherwise doing well on current management . No new active problems identified . Chronic problems are all stable. Patient is to continue current regimen without change. All questions answered and regimen reviewed. Patient is to call for any change in status. EKG: Sinus rhythm, QTC interval in safe range for antiarrhyt hmic therapy. Atypical chest pain 1025 27152 R07.89 Management of this problem was reviewed with the patient. No changes recommende d, status for this problem is stable at this time. [id number] SUNI BOLAÑOS PA-C CARDIOLOG Y [address] [place] [address] 11/11/2017 14:21:27 11/11/2017 16:22:52 Paroxysmal atrial fibrillation 187501452 I48.0 Long-term drug therapy 199862891 Z79.899 Upper chest pain 3085656 08 R07.9 [id number] LUCIO PARKER MD [facility] [address] [place] [address] [place] [address] 03/29/2018 10:41:40 03/31/2018 15:54:28 Aortic valve disorder 9879892 I35.9 [id number] LUCIO PARKER MD CARDIOLOG Y [address] [place] [address] 03/29/2018 10:44:58 03/30/2018 15:00:39 Long-term drug therapy 342350950 Z79.899 Flecainide .Patient shows no evidence of toxicity to the antiarrhyt hmic drug program. Electrocar diogram shows stable QTc interval. Risk of medication and monitoring reviewed with patient. Aortic inc ompetence, non-rheumatic 189683880 I35.1 Echocardio gram performed in 2013 showed inconsiste nt evaluation of left ventricula r function and suggestion of aortic valve disease. Repeat echo 2015 showed normal ejection fraction and no significan t valvular pathology. Paroxysmal atrial fibrillation 729014298 I48.0 The patient remains in normal sinus rhythm on current therapy. No evidence of antiarrhyt hmic drug toxicity. Details of management and medication risk for antiarrhyt hmics and anticoagul ants reviewed.M edication changes, as well as new medication s were reviewed and discussed in detail including benefit and risk of therapy. The patient is otherwise doing well on current management . No new active problems identified . Chronic problems are all stable. Patient is to continue current regimen without change. All questions answered and regimen reviewed. Patient is to call for any change in status. EKG: Sinus rhythm, QTC interval in safe range for antiarrhyt hmic therapy. Atypical chest pain 1025 18101 R07.89 Management of this problem was reviewed with the patient. No changes recommende d, status for this problem is stable at this time. Renewal of prescription 206764308 Z76.0 [id number] LUCIO PARKER MD CARDIOLOG Y [address] [place] [address] 03/27/2019 10:11:28 03/27/2019 10:51:27 Long-term drug therapy 384376236 Z79.899 Flecainide . Patient shows no evidence of toxicity to the antiarrhyt hmic drug program. Electrocar diogram shows stable QTc interval. Risk of medication and monitoring reviewed with patient. Aortic inc ompetence, non-rheumatic 477986453 I35.1 Echocardio gram performed in 2013 showed inconsiste nt evaluation of left ventricula r function and suggestion of aortic valve disease. Repeat echo 2015 showed normal ejection fraction and no significan t valvular pathology. Paroxysmal atrial fibrillation [id number] I48.0 The patient remains in normal sinus rhythm on current therapy. No evidence of antiarrhyt hmic drug toxicity. Details of management and medication risk for antiarrhyt hmics and anticoagul ants reviewed.M edication changes, as well as new medication s were reviewed and discussed in detail including benefit and risk of therapy. The patient is otherwise doing well on current management . No new active problems identified . Chronic problems are all stable. Patient is to continue current regimen without change. All questions answered and regimen reviewed. Patient is to call for any change in status. RTC: 6 months with EKG. Atypical chest pain 1025 32502 R07.89 Management of this problem was reviewed with the patient. No changes recommende d, status for this problem is stable at this time. Renewal of prescription [id number] Z76.0 [id number] LUCIO PARKER MD CARDIOLOG Y [address] [place] [address] 10/02/2019 08:55:28 10/02/2019 09:45:16 Paroxysmal atrial fibrillation 570701235 I48.0 The patient remains in normal sinus rhythm on current therapy. No evidence of antiarrhyt hmic drug toxicity. Details of management and medication risk for antiarrhyt hmics and anticoagul ants reviewed.M edication changes, as well as new medication s were reviewed and discussed in detail including benefit and risk of therapy. The patient is otherwise doing well on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 158/53/75 ALLA FELIPE MD [address] [place], [address], [place] [facility] 11/13/2024 12:58:12
[2025-04-09 00:13] LABS: Troponin I < 0.01 ng/ml (0.00-0.034)
[2025-04-09 00:15] VITALS: PULSE 66; RESP 17; O2SAT 95
[2025-04-09 00:29] LABS: Thyroid Stimulating Hormone 5.53 uIU/mL (0.465-4.68)
[2025-04-09 01:12] VITALS: BP 156/89; PULSE 62; RESP 18; TEMP 36.6; O2SAT 98
== END 2025-04-09 01:13 | disposition home or self-care (01) ==
PROVIDERS: Emergency Provider Emergency Medicine
DX: R00.2 Palpitations (principal); Z87.891 Personal history of nicotine dependence
CPT/HCPCS: 71045; 80053; 83735; 84436; 84443; 84484; 85025; 93005; 96360; 99284; J7120

== ENCOUNTER 2025-09-03 06:11 | Emergency (ER) | payer MEDICARE, SELFPAY ==
--- OUTSIDE RECORDS SUMMARY | 2013-12-19 05:55 | XMS_ITS | Continuity of Care Document ---
Author Organization [facility] Address [address] [place] [address] Phone Care Team Providers Care Garnett Room Worker Name Role Phone Tree Puga MD Unavailable Unavailable Procedures Procedure Date ENDO CHOLANGIOPANCREATOGRAPH/ STENT ERCP OFFICE/OUTPATIENT VISIT, EST OFFICE/OUTPATIENT VISIT, EST OFFICE/OUTPATIENT VISIT, EST OFFICE/OUTPATIENT VISIT, NEW Advance Directives Directive Yes / No Effective Date File Name No Information Encounters Encounter Description Practice Location Reason(s) For Visit Diagnoses Date Provider Providers Copied on Encounter [facility], [address] [place], [place], [id number], tel:[phone] Main Office No Information Edd Leavitt. [address] [place] [address], [facility], . tel:[phone] [facility], [address] [place] [address], [address] [place] [address], tel:[phone] [facility] Outpatient No Information Edd Leavitt. [address] [place], [place], [facility], [place]. tel:[phone] Referring Provider: Tree Granados, [address] [place] [address], [facility]. tel:[phone] OFFICE/OUTPAT IENT VISIT, EST [facility], [address] [place], [place], [id number], tel:[phone] Main Office No Information Wilfrido Jiménez. [address] tel:[phone] Referring Provider: Tree Granados, [facility] [address], [place], [facility]. tel:[phone] OFFICE/OUTPAT IENT VISIT, [facility], [facility] [address], [place], [address] [place] [address], tel:[phone] Main Office No Information Edd Leavitt. [facility] E [address] [place] [address], [facility], . tel:[phone] Referring Provider: Tree Granados, [address] [place] [address]. tel:[phone] OFFICE/OUTPAT IENT VISIT, [facility], [facility] [address] [place] [address], [address] [place] [address], tel:[phone] Main Office No Information Edd Leavitt. [address] [place] [address], . tel:[phone] Referring Provider: Tree Granados, [address] [place] [address], [facility]. tel:[phone] OFFICE/OUTPAT IENT VISIT, [facility], [facility] [address] [place] [address], [address] [place] [address], tel:[phone] Main Office No Information Edd Leavitt. [address] [place] [address]. tel:[phone] Referring Provider: Tree Granados, [address] [place] [address]. tel:[phone] Family History Family Member Type Diagnosis Age At Onset No Information Payers Payer name Insurance type Covered alliance party ID Authordela tiedith(s) Medicare [id number] Medicaid [id number] Social History Type Description Quantity Date Captured Comments Sex Male Smoking Status No Information Chief Complaint And Reason For Visit No Information Reason For Referral Reason For Referral No Information History Of Present Illness Encounter Date Complaint History Of Prese nt Illness No Information Functional Status Date Functional Assessmen t No Information Instructions Date Instruction Additional Infor mation No Information Assessments Type Assessment Date No Information Patient Care Teams Name Effective Dates (start - stop) Status Members No Information
--- OUTSIDE RECORDS SUMMARY | 2013-12-19 05:55 | XMS_ITS | Continuity of Care Document ---
Author Organization [facility] Address [address] [place] [address] Phone Care Team Providers Care Customer Success Advocate Name Role Phone Tree Puga MD Unavailable Unavailable Procedures Procedure Date ENDO CHOLANGIOPANCREATOGRAPH/ STENT ERCP OFFICE/OUTPATIENT VISIT, EST OFFICE/OUTPATIENT VISIT, EST OFFICE/OUTPATIENT VISIT, EST OFFICE/OUTPATIENT VISIT, NEW Advance Directives Directive Yes / No Effective Date File Name No Information Encounters Encounter Description Practice Location Reason(s) For Visit Diagnoses Date Provider Providers Copied on Encounter [facility], [address] [place], [place], [id number], tel:[phone] Main Office No Information Edd Leavitt. [address] [place] [address], [facility], . tel:[phone] [facility], [address] [place] [address], [address] [place] [address], tel:[phone] [facility] Outpatient No Information Edd Leavitt. [address] [place], [place], [facility], [place]. tel:[phone] Referring Provider: Tree Granados, [address] [place] [address], [facility]. tel:[phone] OFFICE/OUTPAT IENT VISIT, EST [facility], [address] [place], [place], [id number], tel:[phone] Main Office No Information Wilfrido Jiménez. [address] tel:[phone] Referring Provider: Tree Granados, [facility] [address], [place], [facility]. tel:[phone] OFFICE/OUTPAT IENT VISIT, [facility], [facility] [address], [place], [address] [place] [address], tel:[phone] Main Office No Information Edd Leavitt. [facility] [address] [place] [address], [facility], . tel:[phone] Referring Provider: Tree Granados, [address] [place] [address]. tel:[phone] OFFICE/OUTPAT IENT VISIT, [facility] [place], [facility] [address] [place] [address], [address] [place] [address], tel:[phone] Main Office No Information Edd Leavitt. [address] [place] [address], . tel:[phone] Referring Provider: Tree Granados, [address] [place] [address], [facility]. tel:[phone] OFFICE/OUTPAT IENT VISIT, [facility], [facility] [address] [place] [address], [address] [place] [address], tel:[phone] Main Office No Information Edd Leavitt. [address] [place] [address]. tel:[phone] Referring Provider: Tree Granados, [address] [place] [address]. tel:[phone] Family History Family Member Type Diagnosis Age At Onset No Information Payers Payer name Insurance type Covered republican ID Authordela tiedith(s) Medicare [id number] Medicaid [id number] Social History Type Description Quantity Date Captured [...]
--- OUTSIDE RECORDS SUMMARY | 2013-12-19 05:55 | XMS_ITS | Continuity of Care Document ---
Author Organization [facility] Address [address] [place] [address] Phone Care Team Providers Care Bobcat Operator Name Role Phone Tree Puga MD Unavailable Unavailable Procedures Procedure Date ENDO CHOLANGIOPANCREATOGRAPH/ STENT ERCP OFFICE/OUTPATIENT VISIT, EST OFFICE/OUTPATIENT VISIT, EST OFFICE/OUTPATIENT VISIT, EST OFFICE/OUTPATIENT VISIT, NEW Advance Directives Directive Yes / No Effective Date File Name No Information Encounters Encounter Description Practice Location Reason(s) For Visit Diagnoses Date Provider Providers Copied on Encounter [facility] [place], [address] [place], [place], [id number], tel:[phone] Main Office No Information Edd Leavitt. [address] [place] [address], [facility], . tel:[phone] [facility], [address] [place] [address], [address] [place] [address], tel:[phone] [facility] Out[facility] No Information Edd Leavitt. [address] [place], [place], [facility], [place]. tel:[phone] Referring Provider: Tree Granados, [address] [place] [address], [facility]. tel:[phone] OFFICE/OUTPAT IENT VISIT, EST [facility], [address] [place], [place], [id number], tel:[phone] Main Office No Information Wilfrido Jiménez. [address] tel:[phone] Referring Provider: Tree Granados, [facility] [address], [place], [facility]. tel:[phone] OFFICE/OUTPAT IENT VISIT, [facility] [place], [facility] [address], [place], [address] [place] [address], tel:[phone] Main Office No Information Edd Leavitt. [facility] [address] [place] [address], [facility], . tel:[phone] Referring Provider: Tree Granados, [address] [place] [address]. tel:[phone] OFFICE/OUTPAT IENT VISIT, [facility] [place], [facility] [address] [place] [address], [address] [place] [address], tel:[phone] Main Office No Information Edd Leavitt. [address] [place] [address], . tel:[phone] Referring Provider: Tree Granados, [address] [place] [address], [facility]. tel:[phone] OFFICE/OUTPAT IENT VISIT, [facility] [place], [facility] [address] [place] [address], [address] [place] [address], tel:[phone] Main Office No Information Edd Leavitt. [address] [place] [address]. tel:[phone] Referring Provider: Tree Granados, [address] [place] [address]. tel:[phone] Family History Family Member Type Diagnosis Age At Onset No Information Payers Payer name Insurance type Covered alliance party ID Authordela tiedith(s) Medicare [id number] Medicaid [id number] Social History Type Description Quantity Date Captured [...]
--- NOTE | 2025-09-03 06:19 | XR_ITS ---
FINAL REPORT TECHNIQUE: Chest PA & Lateral CLINICAL HISTORY: tachycardic COMPARISON: None FINDINGS: 2 views of the chest were performed. The heart size is normal. The aorta is tortuous. The mediastinum is within normal limits. There is no acute cardiopulmonary process. There are no pleural effusions. There is no pneumothorax. The bony thorax appears intact. IMPRESSION: No acute cardiopulmonary process. Tortuous aorta, correlate with history of possible hypertension. Reviewed, Interpreted and Dictated by Mateo Miramontes MD Transcribed by Maria Ines Hampton Authenticated and [facility]
[2025-09-03 06:20] VITALS: BP 162/78; PULSE 129; RESP 18; TEMP 36.4; O2SAT 98; BMI 21.5
--- NOTE | 2025-09-03 06:21 | ECG_ITS ---
APPROVED REPORT Exam: Resting ECG HR:122 bpm ECG Measurements Heart Rate 122 AXES QRSd 121 QRS -51 QT 300 T 91 QTc 372 Conclusion ATRIAL FLUTTER/TACHYCARDIA WITH RAPID VENTRICULAR RESPONSE LEFT ANTERIOR FASCICULAR BLOCK [QRS AXIS <= -45, QR IN I, RS IN II] LEFT VENTRICULAR HYPERTROPHY AND ST-T CHANGE [VOLTAGE CRITERIA PLUS ST/T ABNORMALITY] POSSIBLE SEPTAL MYOCARDIAL INFARCTION , OF INDETERMINATE AGE [30 ms Q WAVE IN V1/V2] ABNORMAL ECG UNCONFIRMED REPORT Electronically signed by : Pablo Medina, 09/03/2025 15:54:03
[2025-09-03 06:24] VITALS: PULSE 64; RESP 15; O2SAT 95
[2025-09-03 06:25] VITALS: BP 142/86; BP 168/78; PULSE 124; PULSE 78; RESP 15; RESP 18; TEMP 36.6; O2SAT 98
--- NOTE | 2025-09-03 06:27 | ED_ITS ---
Discharge Plan Disposition Patient Disposition: Home, Self-Care Prescriptions Prescriptions: New metoprolol succinate 25 mg capsule,ronda,ER 24hr 25 mg PO DAILY 30 Days Qty: 30 0RF No Action doxycycline hyclate 100 MG capsule 100 mg PO BID atorvastatin 20 MG tablet 20 mg PO HS flecainide 50 MG tablet 50 mg PO DAILY mupirocin 2 % ointment 1 applicatio topical BID metoprolol succinate 25 MG tablet extended release 24 hr 25 mg PO DAILY ibuprofen 600 MG tablet 600 mg PO TID Patient Comments: TAKE 1 TABLET BY MOUTH EVERY 12 HOURS NEEDED cephalexin 500 MG capsule 500 mg PO TID Qty: 30 0RF lidocaine 1 EACH adhesive patch,medicated 1 each TP Q24H 10 Days Qty: 10 0RF cyclobenzaprine 5 MG tablet 5 mg PO BIDP PRN (Reason: Muscle Spasm) 5 Days Qty: 10 0RF Rx Instructions: Do not operate heavy machinery or drink alcohol while taking this medicine Referrals Follow up/Referrals: Provider,Referral, MD [Primary Care Provider, Medical] - See instructions Activity Restrictions/Add. Instructions Additional Instructions/Restrictions: Given that this is the third recurrence this year your A-fib with rapid ventricular response I recommend that you restart your metoprolol and to follow- up with your contract programmer. Return to the emergency department with any other concerns. No other emergent or life-threatening condition were identified today. Clinical Impressions Clinical Impression: Atrial fibrillation with RVR Print Language Print Language: Occitan Discharge ED Provider: Juani Flores Adult HPI <Juani Flores MD - Last Filed: 09/03/25 06:54> General Chief complaint: Arrhythmia/Palpitations Stated complaint: high heart rate, blood pressure Time Seen by Provider: 09/03/25 06:19 Mode of Arrival: Ambulatory Source of Information: Patient Description of Symptoms (Recalled from ER Triage Doc. by RN): Patient states he awoke from sleep aroun 0530 with his apple watch going off signaling a high heart rate. Patient states he then checked his blood pressue which was 147/107 and thats high for me. States his contract programmer told him to be seen at the ER for a heart rate above 120. Patient does have history of prior episodes with the same symptoms, states they always call it anxiety and discharge him. Patient declining SOA, CP, N&V. States he has been unusally light headed, but states maybe its due to him just waking up. History of Present Illness HPI narrative: 84-year-old male with history of anxiety, atrial fibrillation, hypertension presents to the ER for concerns of high heart rate and high blood pressure. Patient reports early this morning (to me reports around 4 AM) he woke up to his Apple Watch alarming that his heart rate was high. It said it was in the 130s so he got up to check his blood pressure and heart rate on a regular monitor and his blood pressure was 147/107 and his heart rate was in the 130s to 140s. He states he feels mildly lightheaded but thinks this may be because it is so early in the morning. He denies any chest pain or difficulty breathing. He reports he has been to the hospital for similar symptoms in the past and reports he has been diagnosed with anxiety. He reports his contract programmer has told him to keep his heart rate under 120 when exercising so the fact that he is not exercising and it is this elevated is concerning to him. He reports he has not taken any of his morning medications, except he did take 25 mg oral metoprolol around 415- 430 this morning because of his heart rate. He states he typically does not take metoprolol anymore because his heart rate was staying too low. He reports no recent illness. He denies any fevers, chills, cough, or congestion. Denies abdominal pain, nausea,, or diarrhea. Denies numbness, tingling, or weakness. Denies headache, denies any changes in urination. Denies any shortness of breath or chest pain or pressure. Review of previous records demonstrates [place] and sees [place]ology at the [facility] in [place]. He does take flecainide typically for A-fib. Patient reports no other complaints or concerns. Related Data Home Medications ?Medication ?Instructions ?Recorded ?Confirmed atorvastatin 20 mg tablet 20 mg PO HS lipids 08/27/19 12/22/24 doxycycline hyclate 100 mg capsule 100 mg PO BID Infec tion 08/27/19 12/22/24 flecainide 50 mg tablet 50 mg PO DAILY afib 08/27/19 12/22/24 ibuprofen 600 mg tablet 600 mg PO TID Infection 08/1812/22/24 metoprolol succinate 25 mg 25 mg PO DAILY aortic valve 08/27/19 12/22/24 tablet,extended release 24 hr disorder/htn mupirocin 2 % topical ointment 1 applicatio topical BI D cellulitis 08/27/19 12/22/24 Previous Rx's ?Medication ?Instructions ?Recorded cephalexin 500 mg capsule 500 mg PO TID #30 caps 08/27 cyclobenzaprine 5 mg tablet 5 mg PO BIDP PRN Muscle Sp asm 5 02/03/21 days #10 tabs lidocaine 5 % topical patch 1 each TP Q24H Back ache/b ack pain 02/03/21 10 days ##10 metoprolol succinate 25 mg capsule 25 mg PO DAILY 30 d ays #30 ea 09/03/25 sprinkle, ext. release 24 hr Allergies Allergy/AdvReac Type Severity Reaction Status Date / Time No Known Allergies Allergy Verified 08/27/19 19:42 PFSH <Juani Flores MD - Last Filed: 09/03/25 06:54> [facility] Disclaimer: The information contained in this section may have been updated after the patient was seen, as this information can be updated by other users. Social History Smoking Status: Never smoker alcohol intake: never current occupational status: retired Travel in the last 8 weeks?: None housing: house Have you lived/traveled outside [place] in past 30 days?: No Contact w/someone who lives/traveled outside US past 30 days?: No Exposure to someone with infectious disease in past 14 days?: No Do you have a fever (greater than 100.4 F or 38 C)?: No Have you tested positive for COVID-19?: No Exposed to someone with COVID-19 in past 14 days?: No Do you have a sore throat?: No Do you have a cough?: No Do you have any weakness?: No Do you have any diarrhea?: No Are you experiencing any unusual bleeding?: No Do you have any muscle aches/pain?: No Do you have any abdominal pain?: No Are you experiencing loss of taste or smell?: No Other Medical History Have you received the Flu Vaccine for this season: Yes Have you received the Pneumonia Vaccine: No <Juani Flores MD - Last Filed: 09/03/25 06:54> ROS Obtained: Yes Systems reviewed as appropriate & no additional complaints except as documented Per HPI Physical Exam <Juani Flores MD - Last Filed: 09/03/25 06:54> General General appearance: alert and in no apparent distress Head Head exam: atraumatic and normocephalic Eye Eye exam: Present PERRL and EOMI; Absent nystagmus ENT ENT exam: Present mucous membranes moist Neck Neck exam: Present normal inspection and full ROM Chest Chest inspection: Present symmetric chest wall rise Respiratory Respiratory exam: Present normal lung sounds bilaterally; Absent respiratory distress, wheezes or stridor Cardiovascular Cardiovascular exam: Present tachycardia and irregular rhythm Abdominal Exam Abdominal exam: Present soft; Absent distention or tenderness Extremities Exam Extremities exam: Present full ROM and normal capillary refill; Absent edema Neurological Exam Neurological exam: Present alert and oriented X3; Absent motor sensory deficit Psychiatric Psychiatric exam: Present normal affect and normal mood Skin Skin exam: Present warm and dry Medical Decision Making <Juani Flores MD - Last Filed: 09/03/25 06:54> Medical Records Medical records reviewed: Yes I reviewed the patient's medical records. Screening: Per USPSTF and CDC recommendations, given the prevalence of disease in our region, it is our hospital?s policy to screen for HIV and viral Hepatitis for all patients aged 18 and over and those with ongoing risk factors. Jerry Inquiry Pt receiving controlled substance: No Vital Signs: 09/03/25 06:20 09/03/25 06:24 09/03/25 06:25 Temperature 97.6 F 97.8 F Temperature Source Oral Oral Pulse Rate 64 78 Pulse Rate [Left] 129 H Respiratory Rate 18 15 18 Blood Pressure 168/78 H Blood Pressure [Right Arm] 162/78 H Blood Pressure Mean Blood Pressure Mean [Right Arm] 106 02 Sat by Pulse Oximetry 98 95 98 Oxygen Delivery Method Room Air Room Air Room Air 09/03/25 06:25 09/03/25 06:25 09/03/25 06:30 Temperature Temperature Source Pulse Rate 124 H 56 L Pulse Rate [Left] Respiratory Rate 15 15 Blood Pressure 142/86 H Blood Pressure [Right Arm] Blood Pressure Mean 104 Blood Pressure Mean [Right Arm] 02 Sat by Pulse Oximetry 98 100 Oxygen Delivery Method Room Air Room Air 09/03/25 06:30 09/03/25 06:36 Temperature 97.6 F Temperature Source Pulse Rate 62 Pulse Rate [Left] Respiratory Rate 18 Blood Pressure 125/85 121/78 Blood Pressure [Right Arm] Blood Pressure Mean 94 Blood Pressure Mean [Right Arm] 02 Sat by Pulse Oximetry 98 Oxygen Delivery Method Room Air Lab Data Lab Results 09/03/25 06:24: WBC 5.5, RBC 5.33, Hgb 16.2, Hct 47.3, MCV 88.7, MCH 30.4, MCHC 34.2, RDW 12.9, Plt Count 309, MPV 9.8, Neut % (Auto) 67.5, Lymph % (Auto) 20.5, [place] % (Auto) 8.0, Eos % (Auto) 2.9, Baso % (Auto) 0.9, Neut # (Auto) 3.7, Lymph # (Auto) 1.1, [place] # (Auto) 0.4, Eos # (Auto) 0.2, Baso # (Auto) 0.1, D-Dimer 0.67 H, Sodium 140, Potassium 4.0, Chloride 102, Carbon Dioxide 30, Anion Gap 12.0, BUN 16, Creatinine 1.00, Estimated Creat Clear 55, Estimated GFR 72, Est GFR ( Amer) 87, Glucose 105 H, Calcium 10.0, Total Bilirubin 2.5 H, AST 36, ALT 26, Alkaline Phosphatase 89, Troponin I < 0.01, NT-Pro-B Natriuret Pep 157, Total Protein 7.9, Albumin 4.8, Globulin 3.1, Albumin/Globulin Ratio 1.5, TSH 2.78, Free T4 0.83 09/03/25 06:28: VBG pH 7.34, VBG pCO2 53.8 H, VBG pO2 27.0 L, VBG HCO3 28.0, VBG Total CO2 29.7 H, VBG O2 Saturation 48.6 L, VBG Base Excess 2.2, VBG Lactic Acid 1.2 09/03/25 06:24 09/03/25 06:24 Orders (Tests/Meds): ED MEDICATIONS Discontinued Medications Generic Name Dose Route Start Last Admin Trade Name Freq PRN Reason Stop Dose Admin Aspirin 324 mg 09/03/25 06:19 09/03/25 06:31 Aspirin 81mg Chewable Tablet PO 09/03/25 06:20 324 mg ONCE ONE Administration Lactated Ringer's 1,000 mls @ 999 mls/hr 09/03/25 06:20 09/03/25 06:31 Lactated Ringer's 1000 Ml Bag IV 09/03/25 07:20 999 mls/hr .Q1H1M ONE Administration ORDERS Category Date Time Status XR chest 2V Stat Exams 09/03/25 06:19 Taken Bilirubin,Direct Stat Lab 09/03/25 06:24 Received Complete Blood Count Auto Diff Stat Lab 09/03/25 06:24 Completed Comprehensive Metabolic Panel Stat Lab 09/03/25 06:24 Completed D-Dimer Stat Lab 09/03/25 06:24 Completed Free T4 (Free Thyroxine) Stat Lab 09/03/25 06:24 Completed NT Pro Brain Natriuretic Pep. Stat Lab 09/03/25 06:24 Completed Prothrombin Time INR Stat Lab 09/03/25 06:24 Received TSH [Thyroid Stimulating Hormone] Stat Lab 09/03/25 06:24 Completed Troponin I Q3H Lab 09/03/25 09:30 Ordered Troponin I Q3H Lab 09/03/25 12:30 Ordered Troponin I Stat Lab 09/03/25 06:24 Completed VBG [Venous Blood Gas] Stat RT 09/03/25 06:28 Completed Medical Decision Narrative: In summary, this 84-year-old male with comorbidities described in the HPI presents to the emergency department today with high heart rate and high blood pressure. On initial evaluation patient is tachycardic with an irregular rhythm but not hypotensive, GCS 15, independently ambulatory into the ER, no neurologic deficits, pulmonary exam benign, cardiac exam notable for tachycardic irregular rhythm, no peripheral edema, good capillary refill, remainder of exam benign. Differential diagnosis includes but is not limited to ACS, PE, A-fib RVR, electrolyte abnormality, dehydration, thyroid abnormality. Based on these concerns, I ordered hematologic and serum labs, cardiac workup including cardiac enzymes, D-dimer, also ordered thyroid studies and chest x-ray. Initial ECG personally interpreted demonstrates atrial fibrillation with RVR rate 122, normal QTc, no STEMI. T waves are tall, awaiting results of VBG/chemistry to assess potassium. I ordered IV fluids and diltiazem for this patient but these had not yet been administered when he spontaneously converted. Heart rate improved to the 60s and appeared to be a sinus rhythm. Blood pressure also improved to 120s over 80s when he had previously been hypertensive. I discontinued the diltiazem. He will still receive IV fluids. Repeat ECG after patient spontaneously converted personally interpreted demonstrates sinus bradycardia, rate 58, right axis deviation, normal AK and QTc, no STEMI. T waves are still slightly peaked. Patient does have ST elevation in lead V2 as well as T wave abnormality in lead I and aVL, these do not meet criteria for STEMI. VBG reviewed by me demonstrates normal pH, slight hypercarbia, normal VBG lactic. I called respiratory and they report the potassium on VBG is 4.1. Labs personally reviewed demonstrate ABG as discussed. CMP with hyperbilirubinemia, direct bilirubin was added to workup. Patient does not appear jaundiced. No transaminitis. No actionable electrolyte abnormalities, potassium is 4.0. D-dimer 0.67 by years criteria PE excluded. Additional labs and imaging pending at the time of physician shift change. Patient handed off to Dr. Medina in stable condition. <Eric Medina MD - Last Filed: 09/03/25 08:17> Vital Signs: 09/03/25 06:20 09/03/25 06:24 09/03/25 06:25 Temperature 97.6 F 97.8 F Temperature Source Oral Oral Pulse Rate 64 78 Pulse Rate [Left] 129 H Respiratory Rate 18 15 18 Blood Pressure 168/78 H Blood Pressure [Right Arm] 162/78 H Blood Pressure Mean Blood Pressure Mean [Right Arm] 106 02 Sat by Pulse Oximetry 98 95 98 Oxygen Delivery Method Room Air Room Air Room Air 09/03/25 06:25 09/03/25 06:25 09/03/25 06:30 Temperature Temperature Source Pulse Rate 124 H 56 L Pulse Rate [Left] Respiratory Rate 15 15 Blood Pressure 142/86 H Blood Pressure [Right Arm] Blood Pressure Mean 104 Blood Pressure Mean [Right Arm] 02 Sat by Pulse Oximetry 98 100 Oxygen Delivery Method Room Air Room Air 09/03/25 06:30 09/03/25 06:36 Temperature 97.6 F Temperature Source Pulse Rate 62 Pulse Rate [Left] Respiratory Rate 18 Blood Pressure 125/85 121/78 Blood Pressure [Right Arm] Blood Pressure Mean 94 Blood Pressure Mean [Right Arm] 02 Sat by Pulse Oximetry 98 Oxygen Delivery Method Room Air Lab Data Lab results reviewed: Yes I reviewed the patient's lab results. Lab Results 09/03/25 06:24: WBC 5.5, RBC 5.33, Hgb 16.2, Hct 47.3, MCV 88.7, MCH 30.4, MCHC 34.2, RDW 12.9, Plt Count 309, MPV 9.8, Neut % (Auto) 67.5, Lymph % (Auto) 20.5, [place] % (Auto) 8.0, Eos % (Auto) 2.9, Baso % (Auto) 0.9, Neut # (Auto) 3.7, Lymph # (Auto) 1.1, [place] # (Auto) 0.4, Eos # (Auto) 0.2, Baso # (Auto) 0.1, D-Dimer 0.67 H, Sodium 140, Potassium 4.0, Chloride 102, Carbon Dioxide 30, Anion Gap 12.0, BUN 16, Creatinine 1.00, Estimated Creat Clear 55, Estimated GFR 72, Est GFR ( Amer) 87, Glucose 105 H, Calcium 10.0, Total Bilirubin 2.5 H, AST 36, ALT 26, Alkaline Phosphatase 89, Troponin I < 0.01, NT-Pro-B Natriuret Pep 157, Total Protein 7.9, Albumin 4.8, Globulin 3.1, Albumin/Globulin Ratio 1.5, TSH 2.78, Free T4 0.83 09/03/25 06:28: VBG pH 7.34, VBG pCO2 53.8 H, VBG pO2 27.0 L, VBG HCO3 28.0, VBG Total CO2 29.7 H, VBG O2 Saturation 48.6 L, VBG Base Excess 2.2, VBG Lactic Acid 1.2 Orders (Tests/Meds): ED MEDICATIONS Discontinued Medications Generic Name Dose Route Start Last Admin Trade Name Pranay PRN Reason Stop Dose Admin Aspirin 324 mg 09/03/25 06:19 09/03/25 06:31 Aspirin 81mg Chewable Tablet PO 09/03/25 06:20 324 mg ONCE ONE Administration Lactated Ringer's 1,000 mls @ 999 mls/hr 09/03/25 06:20 09/03/25 06:31 Lactated Ringer's 1000 Ml Bag IV 09/03/25 07:20 999 mls/hr .Q1H1M ONE Administration ORDERS Category Date Time Status XR chest 2V Stat Exams 09/03/25 06:19 Taken Bilirubin,Direct Stat Lab 09/03/25 06:24 Received Complete Blood Count Auto Diff Stat Lab 09/03/25 06:24 Completed Comprehensive Metabolic Panel Stat Lab 09/03/25 06:24 Completed D-Dimer Stat Lab 09/03/25 06:24 Completed Free T4 (Free Thyroxine) Stat Lab 09/03/25 06:24 Completed NT Pro Brain Natriuretic Pep. Stat Lab 09/03/25 06:24 Completed Prothrombin Time INR Stat Lab 09/03/25 06:24 Received TSH [Thyroid Stimulating Hormone] Stat Lab 09/03/25 06:24 Completed Troponin I Q3H Lab 09/03/25 09:30 Ordered Troponin I Q3H Lab 09/03/25 12:30 Ordered Troponin I Stat Lab 09/03/25 06:24 Completed VBG [Venous Blood Gas] Stat RT 09/03/25 06:28 Completed Medical Decision Narrative: In summary, this 84-year-old male with comorbidities described in the HPI presents to the emergency department today with high heart rate and high blood pressure. On initial evaluation patient is tachycardic with an irregular rhythm but not hypotensive, GCS 15, independently ambulatory into the ER, no neurologic deficits, pulmonary exam benign, cardiac exam notable for tachycardic irregular rhythm, no peripheral edema, good capillary refill, remainder of exam benign. Differential diagnosis includes but is not limited to ACS, PE, A-fib RVR, electrolyte abnormality, dehydration, thyroid abnormality. Based on these concerns, I ordered hematologic and serum labs, cardiac workup including cardiac enzymes, D-dimer, also ordered thyroid studies and chest x-ray. Initial ECG personally interpreted demonstrates atrial fibrillation with RVR rate 122, normal QTc, no STEMI. T waves are tall, awaiting results of VBG/chemistry to assess potassium. I ordered IV fluids and diltiazem for this patient but these had not yet been administered when he spontaneously converted. Heart rate improved to the 60s and appeared to be a sinus rhythm. Blood pressure also improved to 120s over 80s when he had previously been hypertensive. I discontinued the diltiazem. He will still receive IV fluids. Repeat ECG after patient spontaneously converted personally interpreted demonstrates sinus bradycardia, rate 58, right axis deviation, normal AK and QTc, no STEMI. T waves are still slightly peaked. Patient does have ST elevation in lead V2 as well as T wave abnormality in lead I and aVL, these do not meet criteria for STEMI. VBG reviewed by me demonstrates normal pH, slight hypercarbia, normal VBG lactic. I called respiratory and they report the potassium on VBG is 4.1. Labs personally reviewed demonstrate ABG as discussed. CMP with hyperbilirubinemia, direct bilirubin was added to workup. Patient does not appear jaundiced. No transaminitis. No actionable electrolyte abnormalities, potassium is 4.0. D-dimer 0.67 by years criteria PE excluded. Additional labs and imaging pending at the time of physician shift change. Patient handed off to Dr. Medina in stable condition. This is Dr. Medina I took over from Dr. Flores at 7 AM patient remained stable in normal sinus rhythm labs unremarkable patient does however have a mildly elevated bilirubin which has been chronic. This is noncontributory to today's presentation. D-dimer is mildly elevated at 0.67 but with years criteria also without any clinical suspicion of PE will not work this up further. Patient asymptomatic right now on my reassessment. States this is the third time he has been in RVR this year he has been holding his metoprolol at advised that he reinitiate this and follow-up with his primary care doctor. Prescription of metoprolol sent to his pharmacy. Patient was discharged in stable condition. Critical Care <Juani Flores MD - Last Filed: 09/03/25 06:54> Critical Care Time Critical Care Time: No <Eric Medina MD - Last Filed: 09/03/25 08:17> Critical Care Time Critical Care Time: Yes Attestation: On 09/03/25, the high probability of a clinically significant, sudden or life threatening deterioration of the following system(s) required my full and direct attention, intervention and personal management. The time I documented below is in addition to time spent performing reported procedures but includes the following listed in this critical care notation. Total Time Total Critical Care Time: 35
[2025-09-03 06:30] VITALS: BP 125/85; PULSE 56; RESP 15; O2SAT 100
[2025-09-03] MEDS: ASPIRIN 81MG CHEWABLE TABLET 324 MG PO (06:31)
[2025-09-03] MEDS: LACTATED RINGERS 1000ML 1,000 ML 999 ML IV (06:31)
[2025-09-03 06:35] LABS: Lactate Venous 1.2 mmol/L (0.4-2.0); VBG HCO3 28.0 mmol/L (23-30); VBG PCO2 53.8 mmol/L (35-51); VBG PH 7.34 mmol/L (7.31-7.41); VBG PO2 27.0 mmol/L (28-40)
[2025-09-03 06:36] VITALS: BP 121/78; PULSE 62; RESP 18; TEMP 36.4; O2SAT 98
--- OUTSIDE RECORDS SUMMARY | 2025-09-03 06:36 | XMS_ITS | Data Portability ---
Author Organization PRINCE LAXMI PresleyS [facility] [facility]OS[facility] Address [address] [facility] [address] [place] [address] Care Team Providers Care Fruit I Farmworker Name Role Phone ALLA FELIPE Cement Finishing Supervisor JIMMY DELUCA Primary Care Provider [phone] Assessment Encounter Date Assessment Date Assessment LastModified by Organization Details LastModified Time 04/29/2023 04/29/2023 Impression: 1. Paroxysmal atrial fibrillation [...] of his aortic root and bicuspid valve. [email or web address] Not available 05/01/2023 20:34:32 10/28/2023 10/28/2023 Impression: [...] of his aortic root and bicuspid valve. [email or web address] Not available 10/28/2023 09:32:16 05/12/2024 05/12/2024 Impression: [...] 6 months with EKG for flecainide monitoring. [email or web address] Not available 05/13/2024 14:02:30 11/13/2024 11/13/2024 Impression: [...] 6 months with EKG for flecainide monitoring. [email or web address] Not available 11/13/2024 12:57:09 05/10/2025 05/10/2025 Impression: 1. Paroxysmal atrial fibrillation (on Flecainide): [...] measuring 46 mm. 4. Dyslipidemia: Chronic problem, reasonably well controlled on atorvastatin 20 mg daily. Lipid panel in January 2025 reported a calculated LDL of 86. Plan: Mr. Jaimes was recently seen in the ER due to elevated heart rate. As previously discussed, metoprolol had been discontinued due to issues with bradycardia; we discussed that if he has further other episodes of elevated resting heart rate, he can take as needed doses of metoprolol for rate control. Lab work from January 2025 was reviewed. His renal function is normal, and his lipid levels are at goal. Medication changes: None RTC: 6 months with EKG for flecainide monitoring. Testing: Transthoracic echocardiogram to assess aortic root dimensions. [email or web address] Not available 05/10/2025 20:13:06 Plan of Treatment Reminders Order Date Submit Date Provider Last Modified By Organization Details Last Modified Time Details Appointments RECHECK 2025 09:00A Yusuf FELIPE MD Not available Not available Not available Lab None recorded. Referral None recorded. Procedures None recorded. Surgeries None recorded. Imaging None recorded. Medication Orders Eliquis 5 mg tablet 2022 023 [email or web address] [facility], [address] [place] [address], [facility] [address], [place], [place], [id number], 04/29/2023 12:35:49 flecainid e 50 mg tablet 2022 023 [email or web address] [facility], [address], [address], [place], [place], [id number], 04/29/2023 12:35:49 nitroglyc laura 0.4 mg sublingua l tablet 2022 023 [email or web address] [facility], [address], [address], [place], [place], [id number], 04/29/2023 12:35:49 atorvasta tin 20 mg tablet 2022 023 [email or web address] [facility], [address], [address], [place], [place], [id number], 04/29/2023 12:35:49 Patient TargetsNo targets recorded. Patient Instructions Encounter Date Encounter Id Patient Instructions Last Modified By Organization Details Last Modified Time 05/10/2025 [id number] - Continue curre nt medication regimen and use metoprolol as needed for episodes of elevated heart rate. - Maintain hydration to prevent dehydration-relate d symptoms. - Monitor cardiovascular symptoms and seek medical attention if symptoms worsen. [email or web address] Not available 05/10/2025 09:36:36 Reason for Referral None Reported. Results Created Date Observation Date Name Description Value Unit Range Abnormal Flag Note LastModifiedBy Organization Detail LastModifiedTime 04/30/2004/29/2023 US, doppl er echoc ardio gram, w/ color flow No observ ation record ed. [email or web address] [facility] [address] , [place], [address], 04/30/2023 08:09:50 05/03/20 23 04/29/2023 elect rocar diogr am No observ ation record ed. BARCODE Not Available 2022 14:40:59 10/28/19 24 10/28/2023 elect rocar diogr am No observ ation record ed. BARCODE Not Available 2023 16:00:44 05/12/20 24 05/12/2024 US, doppl er echoc ardio gram, w/ color flow No observ ation record ed. [email or web address] [facility] [address] , [place], [address], 05/12/2024 11:41:32 05/15/2005/12/2024 elect rocar diogr am No observ ation record ed. BARCODE Not Available 2023 13:04:49 11/13/1911/13/2024 elect rocar diogr am No observ ation record ed. BARCODE Not Available 2024 16:05:43 05/11/20 25 05/10/2025 elect rocar diogr am No observ ation record ed. BARCODE Not Available 2024 08:38:31 Result Notes None recorded. Problems Name Problem SNOMED Code Status Onset Date Resolution Date Notes Provider Name and Address Organization Details Recorded Time Palpitat ions 50953210 Completed 201403/22/2017 From Automate [employer] Load;Pro vider: Suni Bolaños;Milly tatus: Active LUCIO PARKER MD [address] [place] [address], [phone] , [facility] 7 09:06:17 Paroxysm al atrial fibrilla tion 409619338 Active 2014 From Autom[employer] Load;Pro vider: Suni Bolaños;Milly tatus: Active Not Available [facility] 6 05:16:34 Supraven tricular tachycar kathie 6275291 Completed 201403/22/2017 From Automate d Load;Pro vider: Suni Bolaños;Milly tatus: Active LUCIO PARKER MD [address] [place] [address], [phone] , [facility] 7 09:06:13 Aortic incompet ence, non-rheu matic 535405575 Active 2015 From Automate d Load;Pro vider: Mayra Parker: Active Not Available [facility] 6 05:16:34 Long-ter m drug therapy Active 2016 Boogie Light MD [address] [place] [address], [phone] , [facility] 7 09:06:32 Upper chest pain 638267789 Completed 201711/11/2017 SUNI BOLAÑOS PA-C [address] [place], [address] , [facility] 8 16:11:56 Renewal of prescrip tion Active 2017 LUCIO PARKER MD [facility] [place], [address] , [facility] 8 11:41:03 Atypical chest pain 037261886 Active 2019 LUCIO PARKER MD [facility] [place], [address] , [facility] 0 11:19:00 Problem Notes None recorded. Procedures Surgical History Date Name Laterality Status Provider Name and Address Organization Details Recorded Time 5 EKG completed Kayli De Jesus [facility] 05/10/2025 08:58:41 5 EKG completed ALLA FELIPE MD [facility] [place], [address], [facility] 11/13/2024 10:00:33 4 EKG completed ALLA FELIPE MD [facility] [place], [address], [facility] 05/13/2024 14:03:17 4 EKG completed ALLA FELIPE MD [facility] [place], [address], [facility] 10/28/2023 09:33:00 3 EKG completed Sy Jaimes [facility] 04/29/2023 10:07:49 3 EKG completed Haley Ivan [facility] 11/04/2022 09:58:34 2 EKG completed Haley Short [facility] 04/29/2022 09:45:15 2 Echocardiogram completed ALLA FELIPE MD [address] [place] [address], [phone], [facility] 04/29/2022 17:00:04 1 EKG completed Sy Jaimes [facility] 10/16/2021 09:44:05 8 Echocardiogram completed LUCIO PARKER MD [address] [place] [address], [phone], [facility] 03/29/2018 12:40:37 8 EKG completed SUNI BOLAÑOS PA-C [address] [place] [address], [phone], [facility] 11/11/2017 16:09:40 6 Hernia Repair completed Milka Davis [facility] 03/18/2017 15:55:31 [facility] 15:55:14 Imaging Results None recorded. Procedure Notes None recorded. Medical Equipment None Reported. Allergies No known drug allergies Medications Name Sig Start Date Stop Date Status Note LastModified by Organization Details LastModified Time atorvasta tin 20 mg tablet TAKE 1 TABLET BY MOUTH AT BEDTIME 2024 active Not Available Not Available Not Avai [...] TAKE 1 TABLET BY MOUTH TWICE DAILY 2024 active Not Available Not Available Not Avai lable nitroglyc laura 0.4 mg sublingua l tablet DISSOLVE 1 TABLET UNDER THE TONGUE EVERY 5 MINUTES NEEDED FOR CHEST PAIN. MAX OF 3 TABLETS IN 15 MINUTES. CALL 911 IF PAIN PERSISTS . 2024 active Not Available Not Available Not Avai [...] TAKE 1 TABLET BY MOUTH TWICE DAILY 2024 active Not Available Not Available Not Avai lable Eliquis 2.5 mg tablet Take 1 tablet twice a day by oral route. 04/29 completed 2 sample boxes LOT [id number] EXP 07/10-pat ient to double dose Not Available Not Available Not Available Eliquis 05/10 completed 5mg, 4 boxes, lot [id number] , exp 06/09, given in office per aundrea jiménez. 04/14/21 5mg, 2 boxes mailed to pt, lot [id number] , exp 11/09, aundrea, .5 mg 4 boxes given in office instruct ed patient to take 2 tabs in AM and 2 tabs in PM to compensa te for lack of 5mg/ Lot#[id number] exp:10/19 3 (3 boxes) Lot#[id number] exp: 08/08 (1 box given) [facility] 10/16/21 Not Available Not Available Not Available Vitals Date Recorded Body height Body mass index (BMI) Body weight Oxygen saturation Oxygen saturation in Arterial blood by Pulse oximetry Respiratory rate Heart rate Systolic And Diastolic Provider Name and Address Organization Details Last Updated DateTime 4 177.8 cm 23.3 kg/m2 45181.6 6 g 98 % 98 % 16 /min 61 /min 122/72 mm[Hg] Myriam [facility] 4 09:06:41 Date Recorded Body height Body mass index (BMI) Body weight Oxygen saturation Oxygen saturation in Arterial blood by Pulse oximetry Heart rate Systolic And Diastolic Provider Name and Address Organization Details Last Updated DateTime 5 177.8 cm 22.1 kg/m2 99195.2 2 g 98 % 98 % 76 /min 150/90 mm[Hg] Mckenzie Eid [facility] 5 09:47:52 Date Recorded Body height Body mass index (BMI) Body weight Oxygen saturation Oxygen saturation in Arterial blood by Pulse oximetry Heart rate Systolic And Diastolic Provider Name and Address Organization Details Last Updated DateTime 3 177.8 cm 22.2 kg/m2 54531.3 2 g 96 % 96 % 56 /min 130/75 mm[Hg] Sy Theodore [facility] 3 10:17:28 Date Recorded Body height Body mass index (BMI) Body weight Oxygen saturation Oxygen saturation in Arterial blood by Pulse oximetry Heart rate Systolic And Diastolic Provider Name and Address Organization Details Last Updated DateTime 5 177.8 cm 21.4 kg/m2 65678.2 6 g 98 % 98 % 67 /min 140/82 mm[Hg] Kayli De Jesus [facility] 5 09:07:17 Date Recorded Body height Body mass index (BMI) Body weight Oxygen saturation Oxygen saturation in Arterial blood by Pulse oximetry Heart rate Systolic And Diastolic Provider Name and Address Organization Details Last Updated DateTime 4 177.8 cm 22.8 kg/m2 23085.5 9 g 97 % 97 % 49 /min 118/76 mm[Hg] Destinee Chu [facility] 4 11:08:23 Social History Question Answer Notes LastModified by Organizat ion Details LastModified Time Tobacco Smoking Status Former Smoker Milka Delgadout [facility] 03/18/2017 15:52:37 When Did You Quit Smoking? 18+yearssin eunice [email or web address] [email or web address] Information not available 11/11/2017 Marital Status Informatio n not available 03/18/2017 What Was The Date Of Your Most Recent Tobacco Screening? 05/10/2025 [email or web address] Information not available 05/10/2025 What Is Your Relationship Status? [email or web address] Information not available 04/29/2023 How Much Tobacco Do You Smoke? 3+ PPD Former Smoker Quit 07/08/1974 , Smoked For 30 Years, 3 Ppd Information not available 03/18/2017 Has Tobacco Cessation Counseling Been Provided? No [email or web address] Information not available 04/29/2022 Have You Recently Traveled Abroad? No [email or web address] Information not available 10/16/2021 Sex: Unknown Functional Status Question Answer Note LastModified by Organizat ion Details LastModified Time What is your level of alcohol consumption? Occasional drinks light in moderation Information not available 03/18/2017 Do you or have you ever used smokeless tobacco? Never used smokeless tobacco Information not available 10/02/2019 What is your occupation? Occupation retired Information not available 03/18/2017 Do you or have you ever used e-cigarettes or vape? Never used electronic cigarettes Information not available 10/02/2019 Mental Status None recorded. Family History Relationship Description Onset Age of this Age Resolved Age Notes LastModified by Organization Details LastModified Time Father Family history of malignant neoplasm liver Not available 2016 15:52:00 Mother Hypertensive disorder Not available 2016 15:52:09 Medical History Condition Response Hyperlipidemia Y Heart Disease Y Ulcers Y Atrial Fibrillation Y Hypertension Y High Cholesterol Y Immunizations Vaccine Type Date Status Note Provider Nam e and Address Organization Details Recorded Time Influenza, split virus, quadrivalent, preservative 7 [facility] 10:30:02 Pneumococcal conjugate PCV 13 6 [facility]2017 10:30:41 Td(adult) unspecified formulation 8 completed Not Available [facility] 05/10/2025 08:56:08 pneumococcal, unspecified formulation 9 completed Not Available [facility] 05/10/2025 08:56:08 Tdap 4 completed Not Available [facility] 05/10/2025 08:56:08 Influenza, high-dose, trivalent, PF 6 completed Not Available [facility] 05/10/2025 08:56:08 Hep A, adult 8 completed Not Available [facility] 05/10/2025 08:56:08 Influenza, high-dose, trivalent, PF 8 completed Not Available [facility] 05/10/2025 08:56:08 Hep A, adult 8 completed Not Available [facility] 05/10/2025 08:56:08 zoster recombinant 9 completed Not Available [facility] 05/10/2025 08:56:08 zoster recombinant 9 completed Not Available [facility] 05/10/2025 08:56:08 Influenza, high-dose, trivalent, PF 9 completed Not Available [facility] 05/10/2025 08:56:08 Influenza, high-dose, quadrivalent, PF 0 completed Not Available [facility] 05/10/2025 08:56:08 Influenza, high-dose, quadrivalent, PF 1 completed Not Available [facility] 05/10/2025 08:56:08 COVID-19, mRNA, LNP-S, PF, 100 mcg/0.5mL dose or 50 mcg/0.25mL dose 2 completed Not Available [facility] 05/10/2025 08:56:08 Pneumococcal conjugate PCV20, polysaccharide [id number] conjugate, adjuvant, PF 2 completed Not Available [facility] 05/10/2025 08:56:08 COVID-19, mRNA, LNP-S, bivalent, PF, 50 mcg/0.5 mL or 25mcg/0.25 mL dose 2 completed Not Available [facility] 05/10/2025 08:56:08 Influenza, split virus, quadrivalent, PF 2 completed Not Available [facility] 05/10/2025 08:56:08 COVID-19, mRNA, LNP-S, PF, 50 mcg/0.5 mL 3 completed Not Available [facility] 05/10/2025 08:56:08 Influenza, high-dose, quadrivalent, PF 3 completed Not Available [facility] 05/10/2025 08:56:08 COVID-19, mRNA, LNP-S, PF, tete-sucrose, 30 mcg/0.3 mL 4 completed Not Available [facility] 05/10/2025 08:56:08 RSV, bivalent, protein subunit RSVpreF, diluent reconstituted, 0.5 mL, PF 4 completed Not Available [facility] 05/10/2025 08:56:08 Influenza, high-dose, trivalent, PF 4 completed Not Available [facility] 05/10/2025 08:56:08 Td (adult), 5 Lf tetanus toxoid, preservative free, adsorbed 5 completed Not Available [facility] 05/10/2025 08:56:08 COVID-19, mRNA, LNP-S, PF, 100 mcg/0.5mL dose or 50 mcg/0.25mL dose 1 completed Sy [facility] 10/16/2021 09:35:31 COVID-19, mRNA, LNP-S, PF, 100 mcg/0.5mL dose or 50 mcg/0.25mL dose 1 completed Sy chung [facility] 10/16/2021 09:35:45 COVID-19, mRNA, LNP-S, PF, 100 mcg/0.5mL dose or 50 mcg/0.25mL dose 1 completed Sy chung [facility] 10/16/2021 09:35:57 Past Encounters Encounter ID Performer Location Encounter Start Date Encounter Closed Date Diagnosis/Indication Diagnosis SNOMED-CT Code Diagnosis ICD10 Code Diagnosis IMO Codes Diagnosis Note [id number] LUCIO PARKER MD CARDIOLOG Y [address] [place] [address] 03/22/2017 09:03:18 03/22/2017 10:10:07 Long-term drug therapy 755307360 Z79.899 Patient shows no evidence of toxicity to the antiarrhyt hmic drug program. Electrocar diogram shows stable QTc interval. Risk of medication and monitoring reviewed with patient. Aortic inc ompetence, non-rheumatic 190798535 I35.1 Echocardio gram performed in 2013 showed inconsiste nt evaluation of left ventricula r function and suggestion of aortic valve disease. Repeat echo 2016 showed normal ejection fraction and no significan t valvular pathology. I will recheck his echo on next visit. Paroxysmal atrial fibrillation 374105884 I48.0 The patient remains in normal sinus [...] to call for any change in status. [id number] LUCIO PARKER MD CARDIOLOG Y [address] [place] [address] 09/20/2017 10:08:45 09/20/2017 14:12:55 Long-term drug therapy 388749508 Z79.899 Flecainide .Patient shows no evidence of toxicity to the antiarrhyt hmic drug program. Electrocar diogram shows stable QTc interval. Risk of medication and monitoring reviewed with patient. Aortic inc ompetence, non-rheumatic 925002714 I35.1 Echocardio gram performed in 2013 showed inconsiste nt evaluation of left ventricula r function and suggestion of aortic valve disease. Repeat echo 2016 showed normal ejection fraction and no significan t valvular pathology. Paroxysmal atrial fibrillation 450725579 I48.0 The patient remains in normal sinus [...] antiarrhyt hmic therapy. Atypical chest pain 1025 31312 R07.89 Management of this problem was reviewed with the patient. No changes recommende d, status for this problem is stable at this time. [id number] SUNI BOLAÑOS PA-C CARDIOLOG Y [address] FLO[address] [place] [address] 11/11/2017 14:21:27 11/11/2017 16:22:52 Paroxysmal atrial fibrillation 928001957 I48.0 Long-term drug therapy 814356581 Z79.899 Upper chest pain 7925260 08 R07.9 [id number] LUCIO PARKER MD ECHO VASCULAR LAB [place] [address] 03/29/2018 10:41:40 03/31/2018 15:54:28 Aortic valve disorder 9436545 I35.9 [id number] LUCIO PARKER MD CARDIOLOG Y [address] ,[facility] FLO[address] [place] [address] 03/29/2018 10:44:58 03/30/2018 15:00:39 Long-term drug therapy 498952622 Z79.899 Flecainide .Patient shows no evidence of toxicity to the antiarrhyt hmic drug program. Electrocar diogram shows stable QTc interval. Risk of medication and monitoring reviewed with patient. Aortic inc ompetence, non-rheumatic 547526424 I35.1 Echocardio gram performed in 2013 showed inconsiste nt evaluation of left ventricula r function and suggestion of aortic valve disease. Repeat echo 2015 showed normal ejection fraction and no significan t valvular pathology. Paroxysmal atrial fibrillation 701923681 I48.0 The patient remains in normal sinus [...] antiarrhyt hmic therapy. Atypical chest pain 1025 29180 R07.89 Management of this problem was reviewed with the patient. No changes recommende d, status for this problem is stable at this time. Renewal of prescription 408035726 Z76.0 [id number] LUCIO PARKER MD CARDIOLOG [address] [place] [address] 03/27/2019 10:11:28 03/27/2019 10:51:27 Long-term drug therapy 714386496 Z79.899 Flecainide . Patient shows no evidence of toxicity to the antiarrhyt hmic drug program. Electrocar diogram shows stable QTc interval. Risk of medication and monitoring reviewed with patient. Aortic inc ompetence, non-rheumatic 279204369 I35.1 Echocardio gram performed in 2013 showed inconsiste nt evaluation of left ventricula r function and suggestion of aortic valve disease. Repeat echo 2015 showed normal ejection fraction and no significan t valvular pathology. Paroxysmal atrial fibrillation 135358737 I48.0 The patient remains in normal sinus [...] months with EKG. Atypical chest pain 1025 88938 R07.89 Management of this problem was reviewed with the patient. No changes recommende d, status for this problem is stable at this time. Renewal of prescription 383914438 Z76.0 [id number] LUCIO PARKER MD CARDIOLOG Y [address] [place] [address] 10/02/2019 08:55:28 10/02/2019 09:45:16 Paroxysmal atrial fibrillation 800648361 I48.0 The patient remains in normal sinus [...] 6 months with EKG. Long-term drug therapy 718282452 Z79.899 Flecainide . Patient shows no evidence of toxicity to the antiarrhyt hmic drug program. Electrocar diogram shows stable QTc interval. Risk of medication and monitoring reviewed with patient. Aortic inc ompetence, non-rheumatic 136918686 I35.1 Stable bicuspid aortic valve. Atypical chest pain 1025 55770 R07.89 Management of this problem was reviewed with the patient. No changes recommende d, status for this problem is stable at this time. [id number] LUCIO PARKER MD CARDIOLOG Y [address] [place] [address] 04/04/2020 10:03:05 04/04/2020 10:44:29 Paroxysmal atrial fibrillation 832280798 I48.0 The patient remains in normal sinus [...] 6 months with EKG. Long-term drug therapy 019418011 Z79.899 Flecainide . Patient shows no evidence of toxicity to the antiarrhyt hmic drug program. Electrocar diogram shows stable QTc interval. Risk of medication and monitoring reviewed with patient. Aortic inc ompetence, non-rheumatic 903806016 I35.1 Stable bicuspid aortic valve. Atypical chest pain 1025 57610 R07.89 Management of this problem was reviewed with the patient. No changes recommende d, status for this problem is stable at this time. Long-term current use of anticoagulant 212647995 Z79.01 Remote history of gastrointe stinal hemorrhage but no recent problems. Recommend trial of Eliquis 5 mg twice a day and discontinu ation of aspirin.El ectronic prescripti on sent to patient's pharmacy. [id number] LUCIO PARKER MD CARDIOLOG Y [address] [place] [address] 10/24/2020 10:58:39 10/24/2020 11:34:09 Paroxysmal atrial fibrillation 534087630 I48.0 The patient remains in normal sinus [...] 6 months with EKG. Long-term drug therapy 394919012 Z79.899 Flecainide . Patient followed on high risk drug protocol for antiarrhyt hmics. Monitoring for QTC prolongati on due to risk of sudden cardiac . Patient shows no evidence of toxicity to the antiarrhyt hmic drug program. Electrocar diogram shows stable QTc interval. Risk of medication and monitoring reviewed with patient. Aortic inc ompetence, non-rheumatic 008070373 I35.1 Stable bicuspid aortic valve. Atypical chest pain 1025 55693 R07.89 Management of this problem was reviewed with the patient. No changes recommende d, status for this problem is stable at this time. Long-term current use of anticoagulant 236925239 Z79.01 Eliquis.No symptoms of bleeding or any evidence of anticoagul ant toxicity. Periodic CBC recommende d. [id number] LUCIO PARKER MD CARDIOLOG Y [address] [place] [address] 04/14/2021 08:52:15 04/14/2021 09:21:41 Paroxysmal atrial fibrillation 828616208 I48.0 The patient remains in normal sinus [...] 6 months with EKG. Long-term drug therapy 091034595 Z79.899 Flecainide . Patient followed on high risk drug protocol for antiarrhyt hmics. Monitoring for QTC prolongati on due to risk of sudden cardiac . Patient shows no evidence of toxicity to the antiarrhyt hmic drug program. Electrocar diogram shows stable QTc interval. Risk of medication and monitoring reviewed with patient. Aortic inc ompetence, non-rheumatic 603485609 I35.1 Stable bicuspid aortic valve. Atypical chest pain 1025 38383 R07.89 Management of this problem was reviewed with the patient. No changes recommende d, status for this problem is stable at this time. Long-term current use of anticoagulant 041911534 Z79.01 Eliquis.No symptoms of bleeding or any evidence of anticoagul ant toxicity. Periodic CBC recommende d. [id number] ALLA FELIPE MD CARDIOLOG Y 16 [address] [place] [address] 10/16/2021 09:25:56 10/16/2021 10:27:43 Paroxysmal atrial fibrillation [id number] I48.0 Management strategy: Rhythm control using flecainide 50 mg twice dailyAntic oagulation : Apixaban Lab work: 09/24/2021 K10/16/2021 Plan:Patinena nt should remain on high risk medication , Flecainide 50 mg po bid pending review of lab work.While on this medication , this patient needs to be re-assesse d [id number] with a resting 12 lead EKG, as well as an assessment of renal function and serum magnesium level. Aortic inc ompetence, non-rheumatic [id number] I35.1 Bicuspid aortic valve with associated aortic insufficie ncy. Last imaging was performed in March 2018.He will be scheduled for repeat echo at his follow-up visit. Essential hypertension 30148578 I10 [id number] ALLA FELIPE MD CARDIOLOG Y [address] [place] [address] 04/29/2022 09:32:02 04/29/2022 10:20:17 Paroxysmal atrial fibrillation [id number] I48.0 Management strategy: Rhythm control using flecainide 50 mg twice dailyAntic oagulation : Apixaban Lab work: 09/24/2021 K10/16/2021 Plan:Harsha nt should remain on high risk medication , Flecainide 50 mg po bid.While on this medication , this patient needs to be re-assesse d [id number] with a resting 12 lead EKG, as well as an assessment of renal function and serum magnesium level. Aortic inc ompetence, non-rheumatic [id number] I35.1 Bicuspid aortic valve with associated TAA and aortic insufficie ncy. Essential hypertension [id number] I10 [id number] ALLA FELIPE MD ECHO VASCULAR LAB [place] [address] [place] [address] 04/29/2022 08:17:12 05/01/2022 10:43:27 Bicuspid aortic valve [id number] Q23.1 [id number] ALLA FELIPE MD CARDIOLOG Y [place] [address] [place] [address] 11/04/2022 09:49:32 11/04/2022 10:39:47 Paroxysmal atrial fibrillation [id number] I48.0 Management strategy: Rhythm control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
--- NOTE | 2025-09-03 06:40 | ECG_ITS ---
APPROVED REPORT Exam: Resting ECG HR:58 bpm ECG Measurements Heart Rate 58 AXES OH 200 P 71 QRSd 97 QRS -54 QT 385 T 77 QTc 382 Conclusion SINUS BRADYCARDIA POSSIBLE RIGHT VENTRICULAR CONDUCTION DELAY [RSR (QR) IN V1/V2] LEFT ANTERIOR FASCICULAR BLOCK [QRS AXIS <= -45, QR IN I, RS IN II] LEFT VENTRICULAR HYPERTROPHY AND ST-T CHANGE [VOLTAGE CRITERIA PLUS ST/T ABNORMALITY] POSSIBLE SEPTAL MYOCARDIAL INFARCTION , OF INDETERMINATE AGE [30 ms Q WAVE IN V1/V2] ABNORMAL ECG UNCONFIRMED REPORT Electronically signed by : Pablo Medina, 09/03/2025 15:53:56
[2025-09-03 06:45] LABS: Alanine Aminotransferase 26 U/L (12-78); Albumin Level 4.8 g/dl (3.5-5.0); Albumin/Globulin Ratio 1.5 (1.1-1.8); Alkaline Phosphatase 89 U/L (38-126); Anion Gap 12.0 mEq/L (5-15); Aspartate Amino Transferase 36 U/L (17-59); Bilirubin,Total 2.5 mg/dl (0.2-1.3); Blood Urea Nitrogen 16 mg/dl (9-20); Calcium 10.0 mg/dl (8.4-10.2); Carbon Dioxide 30 mmol/L (22.0-30.0); Chloride 102 mmol/L (98-107); Creatinine Clearance Estimated 55 mL/min (50-200); Creatinine,Serum 1.00 mg/dl (0.66-1.25); Estimated Glomerular Filt Rate 72 ml/min (>60); GFR (African American) 87 ML/MIN (>60); Globulin 3.1 g/dL (1.3-3.2); Glucose 105 mg/dl (74-100); Potassium 4.0 mmoL/L (3.5-5.1); Sodium 140 mmol/L (136-145); Total Protein,Serum 7.9 g/dl (6.3-8.2)
[2025-09-03 06:49] LABS: D-Dimer 0.67 ug/mL (0.0-0.5)
[2025-09-03 06:52] LABS: Hematocrit 47.3 % (42.0-52.0); Hemoglobin 16.2 g/dL (14.1-18.0); Immature Granulocytes % 0.2 %; Mean Corpuscular HGB Conc 34.2 g/dL (31.8-35.4); Mean Corpuscular Hemoglobin 30.4 pg (27.0-31.2); Mean Corpuscular Volume 88.7 fl (80-94); Nucleated Red Blood Cells % 0 %; Platelet Count 309 K/mm3 (142-424); Red Blood Count 5.33 M/mm3 (4.60-6.20); Red Cell Distribution Width-SD 41.7 fL; White Blood Count 5.5 K/mm3 (4.8-10.8)
[2025-09-03 06:57] LABS: NT Pro Brain Natriuretic Pep. 157 pg/mL (0-450)
[2025-09-03 07:07] LABS: Troponin I < 0.01 ng/ml (0.00-0.034)
[2025-09-03 07:16] LABS: Thyroid Stimulating Hormone 2.78 uIU/mL (0.465-4.68)
[2025-09-03 07:27] LABS: Free T4 (Free Thyroxine) 0.83 ng/dl (0.78-2.19)
[2025-09-03 08:18] LABS: Bilirubin,Direct 0.1 mg/dl (0.0-0.4)
[2025-09-03 08:20] LABS: INR 1.01 (0.9-1.1); Prothrombin Time 11.2 seconds (10.1-12.5)
[2025-09-03 08:23] VITALS: BP 130/78; PULSE 58; RESP 17; TEMP 36.4; O2SAT 99
== END 2025-09-03 08:24 | disposition home or self-care (01) ==
PROVIDERS: Emergency Provider Emergency Medicine
DX: I48.91 Unspecified atrial fibrillation (principal)
CPT/HCPCS: 71046; 80053; 82248; 82803; 83880; 84439; 84443; 84484; 85025; 85378; 85610; 93005; 96361; 96374; 99285; J7120